=== PATIENT | female | born 1960 | race American Indian/Alaskan Native ===

== ENCOUNTER 2018-03-27 12:15 | Emergency (ER) | payer SELFPAY ==
[2018-03-27 12:29] VITALS: BP 190/103
--- NOTE | 2018-03-27 12:45 | Emergency Department Report ---
HPI - General Chief Complaint: Allergic Reaction Time Seen by Provider: 03/27/18 12:39 - HPI HPI: Patient is a 57-year-old female who is presenting with lip swelling. Patient states that about 2 days ago she was eating some strawberries and started having some intense itching of the upper lip. Patient states she took 2 Benadryl which did not relieve the itching. Patient last evening started having some soreness to the area and there is some still just edema to the upper lip is now a large weeping sore. Patient started taking some Abreva. Patient denies any fevers chills nausea vomiting diarrhea to stop. ED Past Medical Hx - Past Medical History Hx Hypertension: Yes Additional medical history: Fibromylagia, thyroid dis - Surgical History Additional Surgical History: Left knee and bilateral feet - Social History Smoking Status: Never Smoker Substance Use Type: Alcohol - Medications Home Medications: Home Medications Medication Instructions Recorded Confirmed Last Taken Type Clindamycin [Clindamycin CAP] 300 mg PO Q8H 7 Days cap 03/27/18 Unknown Rx diphenhydrAMINE [Benadryl CAP] 25 mg PO Q8HR PRN #15 capsule 03/27/18 Unknown Rx predniSONE [Deltasone] 10 mg PO QDAY #5 tab 03/27/18 Unknown Rx ED Review of Systems ROS: Stated complaint: ALLERGIC REACTION Other details as noted in HPI Comment: All other systems reviewed and negative Physical Exam - Physical Exam Vital Signs: Vital Signs 03/27/18 12:24 Temperature 99 F Pulse Rate 77 Respiratory 15 Rate Blood Pressure 190/103 O2 Sat by Pulse 96 Oximetry General: Patient is alert and oriented 3 in no apparent distress Physical Exam: Patient's heart and lung exams are within normal limits. HEENT the patient's upper lip shows edema around this is isolated to just the lip there is no tongue involvement. Patient has a 1/2 cm diameter area of purulence on the lip. It is mild tenderness. ED Course Vital Signs 03/27/18 12:24 Temperature 99 F Pulse Rate 77 Respiratory 15 Rate Blood Pressure 190/103 O2 Sat by Pulse 96 Oximetry ED Medical Decision Making - Medical Decision Making She'll be treated for allergic reaction but also for a mild impetigo be discharged home. Critical care attestation.: If time is entered above; I have spent that time in minutes in the direct care of this critically ill patient, excluding procedure time. ED Disposition Clinical Impression: Impetigo Allergic reaction Qualifiers: Encounter type: initial encounter Qualified Code(s): T78.40XA - Allergy, unspecified, initial encounter Disposition: TO HOME OR SELFCARE Is pt being admited?: No Does the pt Need Aspirin: No Condition: Stable Instructions: Impetigo (ED), Food Allergy (ED)
== END 2018-03-27 13:30 | disposition home or self-care (01) ==
LOC: ED 12:15
DX: T78.40XA Allergy, unspecified, initial encounter (principal); R42 Dizziness and giddiness; X58.XXXA Exposure to other specified factors, initial encounter; I10 Essential (primary) hypertension
CPT/HCPCS: 99281

== ENCOUNTER 2019-07-03 13:16 | Observation (INO) | payer OTHER ==
[2019-07-03] MEDS ORDERED: ASPIRIN PO ONE (13:43)
--- NOTE | 2019-07-03 13:48 | Event Note ---
ED Screening Note ED Screening Note: This initial assessment/diagnostic orders/clinical plan/treatment(s) is/are subject to change based on patients health status, clinical progression and re- assessment by fellow clinical providers in the ED. Further treatment and workup at subsequent clinical providers discretion. Patient/guardian urged not to elope from the ED as their condition may be serious if not clinically assessed and managed. Initial orders include: 58yo BF states that she has CP and SOB x 2 days and it is worse at night. She further states that EMS saw her last night and believe that her symptoms are due to asthma.Pt states that after using a JOSE ANTONIO inhaler and nebulizer treatment; she had very mild relief.
--- NOTE | 2019-07-03 14:22 | XRay Report ---
CHEST 1 VIEW INDICATION: Chest Pain. COMPARISON: None. FINDINGS: Support devices: None. Heart: Normal. Pulmonary vasculature: Normal. Lungs/Pleura: The lungs are normally expanded and clear. No pleural effusion. Additional findings: None. IMPRESSION: 1. No acute findings. Signer Name: Anish Briceño MD Signed: 07/03/2019 2:18 PM Workstation Name: [id number]
[2019-07-03 15:06] LABS: Basophils # (Auto) 0.1 K/mm3 (0.0-0.1); Basophils % (Auto) 1.3 % (0.0-1.8); Eosinophils # (Auto) 0.5 K/mm3 (0.0-0.4); Eosinophils % (Auto) 12.3 % (0.0-4.3); Hematocrit 36.5 % (30.3-42.9); Hemoglobin 12.1 gm/dl (10.1-14.3); Lymphocytes # (Auto) 1.3 K/mm3 (1.2-5.4); Lymphocytes % (Auto) 29.9 % (13.4-35.0); Mean Corpuscular HGB Conc 33 % (30-34); Mean Corpuscular Volume 89 fl (79-97); Monocytes # (Auto) 0.4 K/mm3 (0.0-0.8); Monocytes % (Auto) 9.1 % (0.0-7.3); Platelet Count 219 K/mm3 (140-440); Red Blood Count 4.09 M/mm3 (3.65-5.03); Red Cell Distribution Width 14.9 % (13.2-15.2)
[2019-07-03 15:13] LABS: BUN/Creatinine Ratio 6; Blood Urea Nitrogen 5 mg/dL (7-17); Calcium 8.6 mg/dL (8.4-10.2); Hemolysis Index 24
[2019-07-03 15:59] LABS: LDL Cholesterol,Direct 117 mg/dL (50-130)
[2019-07-03] MEDS ORDERED: NITRO-BID 2% TP ONE (16:45)
[2019-07-03] MEDS ORDERED: NORCO 5/325 PO ONE (16:46)
[2019-07-03] MEDS ORDERED: DUONEB *Not for PRN Use IH ONE (16:46)
[2019-07-03] MEDS ORDERED: LOVENOX SUB-Q ONE (16:46)
[2019-07-03] MEDS ORDERED: SOLU-Medrol IV ONE (16:46)
[2019-07-03] MEDS ORDERED: K-DUR PO ONE (16:51)
--- NOTE | 2019-07-03 16:54 | Emergency Department Report ---
ED Chest Pain HPI - General Chief Complaint: Chest Pain Stated Complaint: CHEST PAIN/EXTREME Time Seen by Provider: 07/03/19 16:37 Source: patient Mode of arrival: Ambulatory Limitations: No Limitations - History of Present Illness Initial Comments: 58 year old female the past medical history of asthma, hypertension, fibromyalgia, and thyroid dz status post partial thyroidectomy currently on Synthroid presents to the hospital with complaints of chest pain since yesterday. Patient states that the pain feels like someone has a foot in the middle of her chest. Pain rate is 7/10 in intensity and intermittent. Pain is worse with coughing. Patient reports a lot of coughing and wheezing lately not alleviated with her nebulized treatment at home. Cough is productive of thick green sputum. She has been feeling lightheaded and dizzy. No fever reported. Patient reports a previous history of leg DVT after leg surgery. She denies recent surgery or travel, calf tenderness, leg edema. She presents with elevated blood pressure and has been out of her blood pressure medication for the past 2 days. She reports she had a stress test "41 years ago", has never been a smoker, and her father had CO at unknown age. Severity scale (0 -10): 7 - Related Data Home Medications Medication Instructions Recorded Confirmed Last Taken Albuterol Sulfate [Albuterol 0.63% 3 ml INHALATION QID 07/03/19 07/03/19 07/01/19 NEBS] Aspirin 325 mg PO ONCE 07/03/19 07/03/19 07/03/19 FLUoxetine [PROzac] 20 mg PO QDAY 07/03/19 07/03/19 07/01/19 Fluticasone [Flonase] 2 spray NS QDAY 07/03/19 07/03/19 07/01/19 Levothyroxine [Synthroid] 112 mcg PO QAM 07/03/19 07/03/19 07/01/19 Meclizine [Antivert] 12.5 mg PO QDAY 07/03/19 07/03/19 07/01/19 amLODIPine [Norvasc] 10 mg PO DAILY 07/03/19 07/03/19 07/01/19 hydroCHLOROthiazide [Hctz] 12.5 mg PO QDAY 07/03/19 07/03/19 07/01/19 Previous Rx's Medication Instructions Recorded Last Taken Type diphenhydrAMINE [Benadryl CAP] 25 mg PO Q8HR PRN #15 capsule 03/27/18 07/01/19 Rx predniSONE [Deltasone] 10 mg PO QDAY #5 tab 03/27/18 07/01/19 Rx Allergies Allergy/AdvReac Type Severity Reaction Status Date / Time No Known Allergies Allergy Verified 07/03/19 13:21 Heart Score - HEART Score History: Slightly suspicious EKG: Non-specific Age: 45-65 Risk factors: > 3 risk factors or hx of atherosclerotic disease Troponin: 1-3x normal limit HEART Score: 5 ED Review of Systems ROS: Stated complaint: CHEST PAIN/EXTREME Other details as noted in HPI Comment: All other systems reviewed and negative ED Past Medical Hx - Past Medical History Previous Medical History?: Yes Hx Hypertension: Yes Hx Deep Vein Thrombosis: Yes (after leg surgery) Hx Asthma: Yes Additional medical history: Fibromylagia, thyroid dz on Synthroid - Surgical History Past Surgical History?: Yes Additional Surgical History: Left knee and bilateral feet. Partial thyroidectomy - Social History Smoking Status: Never Smoker Substance Use Type: None - Medications Home Medications: Home Medications Medication Instructions Recorded Confirmed Last Taken Type diphenhydrAMINE [Benadryl CAP] 25 mg PO Q8HR PRN #15 capsule 03/27/18 07/03/19 07/01/19 Rx predniSONE [Deltasone] 10 mg PO QDAY #5 tab 03/27/18 07/03/19 07/01/19 Rx Albuterol Sulfate [Albuterol 0.63% 3 ml INHALATION QID 07/03/19 07/03/19 07/01/19 History NEBS] Aspirin 325 mg PO ONCE 07/03/19 07/03/19 07/03/19 History FLUoxetine [PROzac] 20 mg PO QDAY 07/03/19 07/03/19 07/01/19 History Fluticasone [Flonase] 2 spray NS QDAY 07/03/19 07/03/19 07/01/19 History Levothyroxine [Synthroid] 112 mcg PO QAM 07/03/19 07/03/19 07/01/19 History Meclizine [Antivert] 12.5 mg PO QDAY 07/03/19 07/03/19 07/01/19 History amLODIPine [Norvasc] 10 mg PO DAILY 07/03/19 07/03/19 07/01/19 History hydroCHLOROthiazide [Hctz] 12.5 mg PO QDAY 07/03/19 07/03/19 07/01/19 History ED Physical Exam - General Limitations: No Limitations - Other Other exam information: Gen.: No acute distress Head: Atraumatic Eyes: Normal appearance ENT: Moist mucous membranes Neck: Normal appearance, no posterior midline tenderness, no meningismus Chest: Bilateral wheezing and rhonchi greater on the left, no tachypnea or accessory muscle use, chest wall nontender Cardiovascular: Regular rate and rhythm Abdomen: Normal appearance, soft, nontender, no rebound or guarding, normal bowel sounds Back: Normal appearance, nontender Extremity: Full range of motion, normal appearance, no calf tenderness or leg edema Neuro: Alert and into 3, clear speech, no focal motor or sensory deficit Psychiatric: Appropriate Skin: No rash ED Course Vital Signs 07/03/19 07/03/19 07/03/19 13:40 17:06 17:08 Temperature 98.9 F Pulse Rate 86 90 Pulse Rate [ 88 Anterior Bilateral Throughout] Respiratory 22 18 Rate Respiratory 19 Rate [Anterior Bilateral Throughout] Blood Pressure Blood Pressure 185/120 152/95 [Right] O2 Sat by Pulse 92 95 Oximetry 07/03/19 07/03/19 07/03/19 18:38 18:50 19:39 Temperature Pulse Rate 87 93 H Pulse Rate [ Anterior Bilateral Throughout] Respiratory 18 18 Rate Respiratory Rate [Anterior Bilateral Throughout] Blood Pressure 153/95 Blood Pressure 164/99 [Right] O2 Sat by Pulse 94 Oximetry - Consultations Consultation #1: 07/03/19 16:58 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 informed of elevated trop and plan to treat for nstemi and ddimer screening to determine if cta is needed. will be admitted and need card consult. agree no acute intervention needed at this time ED Medical Decision Making - Lab Data Result diagrams: 07/03/19 14:23 07/03/19 14:23 Lab Results 07/03/19 07/03/19 07/03/19 Range/Units 14:23 14:23 16:20 WBC 4.3 L (4.5-11.0) K/mm3 RBC 4.09 (3.65-5.03) M/mm3 Hgb 12.1 (10.1-14.3) gm/dl Hct 36.5 (30.3-42.9) % MCV 89 (79-97) fl MCH 30 (28-32) pg MCHC 33 (30-34) % RDW 14.9 (13.2-15.2) % Plt Count 219 (140-440) K/mm3 Lymph % (Auto) 29.9 (13.4-35.0) % Russell % (Auto) 9.1 H (0.0-7.3) % Eos % (Auto) 12.3 H (0.0-4.3) % Baso % (Auto) 1.3 (0.0-1.8) % Lymph # 1.3 (1.2-5.4) K/mm3 Russell # 0.4 (0.0-0.8) K/mm3 Eos # 0.5 H (0.0-0.4) K/mm3 Baso # 0.1 (0.0-0.1) K/mm3 Seg Neutrophils % 47.4 (40.0-70.0) % Seg Neutrophils # 2.0 (1.8-7.7) K/mm3 PT (12.2-14.9) Sec. INR (0.87-1.13) APTT (24.2-36.6) Sec. D-Dimer (0-234) ng/mlDDU Sodium 138 (137-145) mmol/L Potassium 3.2 L (3.6-5.0) mmol/L Chloride 99.0 (98-107) mmol/L Carbon Dioxide 26 (22-30) mmol/L Anion Gap 16 mmol/L BUN 5 L (7-17) mg/dL Creatinine 0.9 (0.7-1.2) mg/dL Estimated GFR > 60 ml/min BUN/Creatinine Ratio 6 % Glucose 97 (65-100) mg/dL Calcium 8.6 (8.4-10.2) mg/dL Magnesium (1.7-2.3) mg/dL Troponin T 0.112 H* 0.110 H* (0.00-0.029) ng/mL Triglycerides 97 (2-149) mg/dL Cholesterol 174 (50-199) mg/dL LDL Cholesterol Direct 117 (50-130) mg/dL 10/07/03/19 07/03/19 Range/Units 16:20 17:20 19:04 WBC (4.5-11.0) K/mm3 RBC (3.65-5.03) M/mm3 Hgb (10.1-14.3) gm/dl Hct (30.3-42.9) % MCV (79-97) fl MCH (28-32) pg MCHC (30-34) % RDW (13.2-15.2) % Plt Count (140-440) K/mm3 Lymph % (Auto) (13.4-35.0) % Russell % (Auto) (0.0-7.3) % Eos % (Auto) (0.0-4.3) % Baso % (Auto) (0.0-1.8) % Lymph # (1.2-5.4) K/mm3 Russell # (0.0-0.8) K/mm3 Eos # (0.0-0.4) K/mm3 Baso # (0.0-0.1) K/mm3 Seg Neutrophils % (40.0-70.0) % Seg Neutrophils # (1.8-7.7) K/mm3 PT 13.5 (12.2-14.9) Sec. INR 1.06 (0.87-1.13) APTT 26.0 (24.2-36.6) Sec. D-Dimer > 57702 H (0-234) ng/mlDDU Sodium (137-145) mmol/L Potassium (3.6-5.0) mmol/L Chloride (98-107) mmol/L Carbon Dioxide (22-30) mmol/L Anion Gap mmol/L BUN (7-17) mg/dL Creatinine (0.7-1.2) mg/dL Estimated GFR ml/min BUN/Creatinine Ratio % Glucose (65-100) mg/dL Calcium (8.4-10.2) mg/dL Magnesium 2.00 (1.7-2.3) mg/dL Troponin T 0.089 H (0.00-0.029) ng/mL Triglycerides (2-149) mg/dL Cholesterol (50-199) mg/dL LDL Cholesterol Direct (50-130) mg/dL - EKG Data -: EKG Interpreted by Nm EKG shows normal: sinus rhythm, ST-T waves (no stemi, inf t wave inv) Rate: normal (80) - EKG Data When compared to previous EKG there are: previous EKG unavailable - Radiology Data Radiology results: report reviewed cxr: naf CTA CHEST WITH IV CONTRAST INDICATION: sob elevated ddimer CONTRAST: 100 cc Omnipaque 350 IV COMPARISON: None available. Three-plane MIP reconstructions were produced. All CT scans at this location are performed using CT dose reduction for ALARA by means of automated exposure control. NOTE: Resolution is decreased and artifact is introduced by the patient's size. FINDINGS: No significant axillary or chest wall lesions are seen. Visualized portions of the upper abdomen show no acute abnormalities. No mediastinal or hilar masses are seen. Calcified nodes are seen in the mediastinum. No areas of consolidation are seen. Slight atelectatic changes are noted in the right lower lobe. Patchy bilateral small areas of focal increased interstitial markings in a focal ground glass type appearance are noted. These are most prevalent in the right upper lobe are also seen in the right lower lobe, right middle lobe, and left upper lobe. In the left lower lobe there is posterior lateral peripheral reticular nodular type of pattern in a mildly tree-in-bud appearance. Aorta shows no aneurysmal dilatation or evidence of dissection. Good opacification of the pulmonary arterial system was achieved. I do not see convincing evidence of pulmonary thromboembolism. IMPRESSION: 1. No evidence of pulmonary th romboembolism 2. Patchy bilateral focal areas of increased interstitial markings are noted of concern for patchy interstitial pneumonitis. No dense areas of consolidation are seen. Clinical correlation is suggested. Follow-up is recommended. - Medical Decision Making Patient be admitted to the hospital due to shortness of breath, wheezing, and elevated troponin. Troponin is remaining stable in trended downward. Patient was treated with ASA,Lovenox, nitroglycerin paste, Solu-Medrol, DuoNeb, and azithromycin which was added after CT suspicious for pneumonitis. CT did not show any pulmonary embolism. Case was discussed with cardiology. Patient to be admitted to the hospitalist service. Decision to admit at 8:12 PM however, awaiting oncoming hospitalist at shift change. b/l doppler ordered to be done during admission if not available tonight. - Differential Diagnosis mi, htn emergency, unstable angina, pe, Pneumonia, asthma exacerbation Critical Care Time: No Critical care attestation.: If time is entered above; I have spent that time in minutes in the direct care of this critically ill patient, excluding procedure time. ED Disposition Clinical Impression: Chest pain, Pneumonitis, Elevated troponin, HTN (hypertension), Noncompliance with medication regimen, Elevated d-dimer Disposition: OP ADMIT IP TO THIS HOSP Is pt being admited?: Yes Condition: Stable Referrals: GARRY BRANNON MD [Primary Care Provider] - 3-5 Days Time of Disposition: 20:12 (hospitalist)
[2019-07-03 18:19] LABS: INR 1.06 (0.87-1.13)
--- NOTE | 2019-07-03 20:05 | Cat Scan Report ---
CTA CHEST WITH IV CONTRAST INDICATION: sob elevated ddimer CONTRAST: 100 cc Omnipaque 350 IV COMPARISON: None available. Three-plane MIP reconstructions were produced. All CT scans at this location are performed using CT d ose reduction for ALARA by means of automated exposure control. NOTE: Resolution is decreased and artifact is introduced by the patient's size. FINDINGS: No significant axillary or chest wall lesions are seen. Visualized portions of the upper ab domen show no acute abnormalities. No mediastinal or hilar masses are seen. Calcified nodes are seen in the mediastinum. No areas of consolidation are seen. Slight atelectatic changes are noted in the right lower lobe. Pat florencia bilateral small areas of focal increased interstitial markings in a focal ground glass type appea balbir are noted. These are most prevalent in the right upper lobe are also seen in the right lower lo be, right middle lobe, and left upper lobe. In the left lower lobe there is posterior lateral periphe ral reticular nodular type of pattern in a mildly tree-in-bud appearance. Aorta shows no aneurysmal dilatation or evidence of dissection. Good opacification of the pulmonary arterial system was achieved. I do not see convincing evidence of pulmonary thromboembolism. IMPRESSION: 1. No evidence of pulmonary thromboembolism 2. Patchy bilateral focal areas of increased interstitial markings are noted of concern for patchy in terstitial pneumonitis. No dense areas of consolidation are seen. Clinical correlation is suggested. Follow-up is recommended. Signer Name: Frankie Howard MD Signed: 07/03/2019 8:01 PM Workstation Name: [id number]
[2019-07-03] MEDS ORDERED: ZITHROMAX 500 MG in NACL 0.9% 250ML 250 ML IV ONE (20:09)
[2019-07-03 20:18] LABS: Bacteria,Urine 1+ /HPF (Negative); Bilirubin,Urine NEG (Negative); Blood,Urine MOD (Negative); Color,Urine Yellow (Yellow); Mucus,Urine FEW /HPF; Protein,Urine <15 mg/dL mg/dL (Negative); Urobilinogen,Urine < 2.0 mg/dL (<2.0)
[2019-07-03] MEDS ORDERED: TYLENOL PO PRN (21:02)
[2019-07-03] MEDS ORDERED: NITROSTAT SL PRN (21:02)
[2019-07-03] MEDS ORDERED: ZOFRAN IV PRN (21:02)
[2019-07-03] MEDS ORDERED: NORCO 5/325 PO PRN (21:02)
[2019-07-03] MEDS ORDERED: SODIUM CHLORIDE FLUSH SYRINGE 10 ML IV PRN ×2 (21:02)
--- NOTE | 2019-07-03 21:14 | History and Physical Report ---
<NICK TIPTON - Last Filed: 07/04/19 01:26> History of Present Illness Date of examination: 07/03/19 Date of admission: 07/03/19 Chief complaint: chest pain History of present illness: Pt is a 58 year old female with PMHx of asthma, hypertension, chronic pain, HDL, depression, Hypothyroidism who presents to the ER with complaints of chest pain since yesterday. Patient states that she experience the same pain about 1 week ago as she was walking, she experience chest pressure and SOB. Patient states that the pain is located in the left substernal area, pt describe the pain as a pressure-like pain like some one is pushing in the middle of her chest. Pt also reports a productive cough of thick green sputum and wheezing for a few days and the cough makes he chest pain worse. Pt's complaint of cough, chest pain, nausea, dizzy, denies diaphoresis, denies palpitation, denies headache, denies fever reported. Pt reports family history of chest pain denies self history of chest pain or heart disease. Pt had an EKG in the ER that shows normal SR, no STEMI, her first cardiac enzyme was elevated, she was started in anticoagulent and admitted for further evaluation and treatment. Past History Past Medical History: hypertension, hyperlipidemia Medications and Allergies Allergies Allergy/AdvReac Type Severity Reaction Status Date / Time No Known Allergies Allergy Verified 07/03/19 13:21 Home Medications Medication Instructions Recorded Confirmed Last Taken Type diphenhydrAMINE [Benadryl CAP] 25 mg PO Q8HR PRN #15 capsule 03/27/18 07/03/19 07/01/19 Rx predniSONE [Deltasone] 10 mg PO QDAY #5 tab 03/27/18 07/03/19 07/01/19 Rx Albuterol Sulfate [Albuterol 0.63% 3 ml INHALATION QID 07/03/19 07/03/19 07/01/19 History NEBS] Aspirin 325 mg PO ONCE 07/03/19 07/03/19 07/03/19 History FLUoxetine [PROzac] 20 mg PO QDAY 07/03/19 07/03/19 07/01/19 History Fluticasone [Flonase] 2 spray NS QDAY 07/03/19 07/03/19 07/01/19 History Levothyroxine [Synthroid] 112 mcg PO QAM 07/03/19 07/03/19 07/01/19 History Meclizine [Antivert] 12.5 mg PO QDAY 07/03/19 07/03/19 07/01/19 History amLODIPine [Norvasc] 10 mg PO DAILY 07/03/19 07/03/19 07/01/19 History hydroCHLOROthiazide [Hctz] 12.5 mg PO QDAY 07/03/19 07/03/19 07/01/19 History Cyclobenzaprine [Flexeril 10 MG 20 mg PO BID PRN 07/04/19 07/04/19 07/03/19 08:00 History TAB] Gabapentin [Neurontin] 600 mg PO Q8H 07/04/19 07/04/19 07/03/19 08:00 History 20 mg Active Meds: Active Medications Acetaminophen (Tylenol) 650 mg PO Q4H PRN PRN Reason: Pain MILD(1-3)/Fever >100.5/[place] Acetaminophen/Hydrocodone Bitart ([place] 5/325) 2 each PO Q6H PRN PRN Reason: Pain, Moderate (4-6) Aspirin (Ecotrin) 325 mg PO QDAY KARLIE Nitroglycerin (Nitrostat) 0.4 mg SL Q5M PRN PRN Reason: Chest Pain Ondansetron HCl (Zofran) 4 mg IV Q8H PRN PRN Reason: Nausea And Vomiting Sodium Chloride (Sodium Chloride Flush Syringe 10 Ml) 10 ml IV BID KARLIE Sodium Chloride (Sodium Chloride Flush Syringe 10 Ml) 10 ml IV PRN PRN PRN Reason: LINE FLUSH Exam - Constitutional Vitals: Temp Pulse Resp BP Pulse Ox 98.9 F 93 H 18 164/99 94 07/03/19 17:08 07/03/19 18:50 07/03/19 19:39 07/03/19 18:50 07/03/19 18:50 General appearance: Present: no acute distress - EENT Eyes: Present: EOM intact ENT: hearing intact - Neck Neck: Present: supple, normal ROM - Respiratory Respiratory: bilateral: rhonchi, wheezing, other (congestion) - Cardiovascular Rhythm: regular Heart Sounds: Present: S1 & S2 - Extremities Extremities: no ischemia Peripheral Pulses: within normal limits - Abdominal General gastrointestinal: Present: deferred Female genitourinary: Present: deferred - Rectal Rectal Exam: deferred - Integumentary Integumentary: Present: warm, dry - Musculoskeletal Musculoskeletal: strength equal bilaterally - Psychiatric Psychiatric: cooperative - Neurologic Neurologic: moves all extremities Results - Labs CBC & Chem 7: 07/03/19 23:00 07/03/19 23:00 Labs: Laboratory Last Values WBC 4.3 K/mm3 (4.5-11.0) L 07/03/19 14:23 RBC 4.09 M/mm3 (3.65-5.03) 07/03/19 14:23 Hgb 12.1 gm/dl (10.1-14.3) 07/03/19 14:23 Hct 36.5 % (30.3-42.9) 07/03/19 14:23 MCV 89 fl (79-97) 07/03/19 14:23 MCH 30 pg (28-32) 07/03/19 14:23 MCHC 33 % (30-34) 07/03/19 14:23 RDW 14.9 % (13.2-15.2) 07/03/19 14:23 Plt Count 219 K/mm3 (140-440) 07/03/19 14:23 Lymph % (Auto) 29.9 % (13.4-35.0) 07/03/19 14:23 [place] % (Auto) 9.1 % (0.0-7.3) H 07/03/19 14:23 Eos % (Auto) 12.3 % (0.0-4.3) H 07/03/19 14:23 Baso % (Auto) 1.3 % (0.0-1.8) 07/03/19 14:23 Lymph # 1.3 K/mm3 (1.2-5.4) 07/03/19 14:23 [place] # 0.4 K/mm3 (0.0-0.8) 07/03/19 14:23 Eos # 0.5 K/mm3 (0.0-0.4) H 07/03/19 14:23 Baso # 0.1 K/mm3 (0.0-0.1) 07/03/19 14:23 Seg Neutrophils % 47.4 % (40.0-70.0) 07/03/19 14:23 Seg Neutrophils # 2.0 K/mm3 (1.8-7.7) 07/03/19 14:23 PT 13.5 Sec. (12.2-14.9) 07/03/19 17:20 INR 1.06 (0.87-1.13) 07/03/19 17:20 APTT 26.0 Sec. (24.2-36.6) 07/03/19 17:20 D-Dimer > 73839 ng/mlDDU (0-234) H 07/03/19 17:20 Sodium 138 mmol/L (137-145) 07/03/19 14:23 Potassium 3.2 mmol/L (3.6-5.0) L 07/03/19 14:23 Chloride 99.0 mmol/L (98-107) 07/03/19 14:23 Carbon Dioxide 26 mmol/L (22-30) 07/03/19 14:23 Anion Gap 16 mmol/L 07/03/19 14:23 BUN 5 mg/dL (7-17) L 07/03/19 14:23 Creatinine 0.9 mg/dL (0.7-1.2) 07/03/19 14:23 Estimated GFR > 60 ml/min 07/03/19 14:23 BUN/Creatinine Ratio 6 % 07/03/19 14:23 Glucose 97 mg/dL (65-100) 07/03/19 14:23 Calcium 8.6 mg/dL (8.4-10.2) 07/03/19 14:23 Magnesium 2.00 mg/dL (1.7-2.3) 07/03/19 16:20 Troponin T 0.089 ng/mL (0.00-0.029) H 07/03/19 19:04 Triglycerides 97 mg/dL (2-149) 07/03/19 14:23 Cholesterol 174 mg/dL (50-199) 07/03/19 14:23 LDL Cholesterol Direct 117 mg/dL (50-130) 07/03/19 14:23 Urine Color Yellow (Yellow) 07/03/19 19:55 Urine Turbidity Slightly-cloudy (Clear) 07/03/19 19:55 Urine pH 7.0 (5.0-7.0) 07/03/19 19:55 Ur Specific [place] 1.011 (1.003-1.030) 07/03/19 19:55 Urine Protein <15 mg/dl mg/dL (Negative) 07/03/19 19:55 Urine Glucose (UA) Neg mg/dL (Negative) 07/03/19 19:55 Urine Ketones Neg mg/dL (Negative) 07/03/19 19:55 Urine Blood Mod (Negative) 07/03/19 19:55 Urine Nitrite Neg (Negative) 07/03/19 19:55 Urine Bilirubin Neg (Negative) 07/03/19 19:55 Urine Urobilinogen < 2.0 mg/dL (<2.0) 07/03/19 19:55 Ur Leukocyte Esterase Mod (Negative) 07/03/19 19:55 Urine WBC (Auto) 7.0 /HPF (0.0-6.0) H 07/03/19 19:55 Urine RBC (Auto) 6.0 /HPF (0.0-6.0) 07/03/19 19:55 U Epithel Cells (Auto) 5.0 /HPF (0-13.0) 07/03/19 19:55 Urine Bacteria (Auto) 1+ /HPF (Negative) 07/03/19 19:55 Urine Mucus Few /HPF 07/03/19 19:55 Assessment and Plan Assessment and plan: 1. Chest pain 2. Acute Non-STEMI 3. Accelerated HTN 4. Asthma with acute exacerbation 5. H/o of HTN 6. Chronic pain 7. HDL 8. Depression 9. Hypothyroidism Plan: Pt is admitted for medtele Consult cardiology for evaluation Continue cardiac monitoring Continue Lovenox subq Q12hr Solumedrol for asthma Start Zithromax daily Continue nebs treatment q4hrs and PRN Monitor VS Hydralizing PRN for elevated BP Lipid panel Repeat EKG with chest pain Further plan per cardiology Advance Directives: Yes VTE prophylaxis?: Chemical Plan of care discussed with patient/family: Yes <YONI ZHENG - Last Filed: 07/04/19 03:55> History of Present Illness Date of admission: 07/03/19 21:02 Medications and Allergies Active Meds: Active Medications Acetaminophen (Tylenol) 650 mg PO Q4H PRN PRN Reason: Pain MILD(1-3)/Fever >100.5/[place] Acetaminophen/Hydrocodone Bitart ([place] 5/325) 1 each PO Q6H PRN PRN Reason: Pain, Moderate (4-6) Albuterol (Proventil) 2.5 mg IH Q4HRT [facility] Last Admin: 07/04/19 01:03 Dose: 2.5 mg Documented by: Amlodipine Besylate (Norvasc) 10 mg PO DAILY [facility] Aspirin (Halfprin Ec) 81 mg PO QDAY [facility] Diphenhydramine HCl (Benadryl) 25 mg PO Q8HR PRN PRN Reason: Itching Enoxaparin Sodium (Lovenox) 90 mg 1 mg/kg (90 mg) SUB-Q Q12H [facility] Fluoxetine HCl (Prozac) 20 mg PO QDAY [facility] Fluticasone Propionate (Flonase) 100 mcg NS QDAY [facility] Gabapentin (Neurontin) 600 mg PO Q8HR [facility] Hydralazine HCl (Apresoline) 5 mg IV Q6HR PRN PRN Reason: Hypertension Hydrochlorothiazide (Hctz) 12.5 mg PO QDAY [facility] Ceftriaxone Sodium (Rocephin/Ns 1 Gm/50 Ml) 1 gm in 50 mls @ 100 mls/hr IV Q24HR [facility]; Protocol Ipratropium [place] (Atrovent) 0.5 mg IH Q4HRT [facility] Last Admin: 07/04/19 01:03 Dose: 0.5 mg Documented by: Levothyroxine Sodium (Synthroid) 112 mcg PO QAM@0600 [facility] Meclizine HCl (Antivert) 12.5 mg PO QDAY [facility] Methylprednisolone Sodium Succinate (Solu-Medrol) 80 mg IV Q8HR [facility] Nitroglycerin (Nitrostat) 0.4 mg SL Q5M PRN PRN Reason: Chest Pain Ondansetron HCl (Zofran) 4 mg IV Q8H PRN PRN Reason: Nausea And Vomiting Sodium Chloride (Sodium Chloride Flush Syringe 10 Ml) 10 ml IV BID [facility] Sodium Chloride (Sodium Chloride Flush Syringe 10 Ml) 10 ml IV PRN PRN PRN Reason: LINE FLUSH Exam - Constitutional Vitals: Temp Pulse Resp BP Pulse Ox 98.0 F 85 20 162/94 98 07/03/19 23:18 07/04/19 03:19 07/04/19 00:00 07/03/19 23:18 07/04/19 00:50 Results - Labs CBC & Chem 7: 07/03/19 23:00 07/03/19 23:00 Labs: Laboratory Last Values WBC 4.5 K/mm3 (4.5-11.0) 07/03/19 23:00 RBC 4.31 M/mm3 (3.65-5.03) 07/03/19 23:00 Hgb 12.8 gm/dl (10.1-14.3) 07/03/19 23:00 Hct 38.4 % (30.3-42.9) 07/03/19 23:00 MCV 89 fl (79-97) 07/03/19 23:00 MCH 30 pg (28-32) 07/03/19 23:00 MCHC 33 % (30-34) 07/03/19 23:00 RDW 15.0 % (13.2-15.2) 07/03/19 23:00 Plt Count 230 K/mm3 (140-440) 07/03/19 23:00 Lymph % (Auto) 19.0 % (13.4-35.0) 07/03/19 23:00 [place] % (Auto) 3.8 % (0.0-7.3) 07/03/19 23:00 Eos % (Auto) 1.7 % (0.0-4.3) 07/03/19 23:00 Baso % (Auto) 0.6 % (0.0-1.8) 07/03/19 23:00 Lymph # 0.8 K/mm3 (1.2-5.4) L 07/03/19 23:00 [place] # 0.2 K/mm3 (0.0-0.8) 07/03/19 23:00 Eos # 0.1 K/mm3 (0.0-0.4) 07/03/19 23:00 Baso # 0.0 K/mm3 (0.0-0.1) 07/03/19 23:00 Seg Neutrophils % 74.9 % (40.0-70.0) H 07/03/19 23:00 Seg Neutrophils # 3.4 K/mm3 (1.8-7.7) 07/03/19 23:00 PT 13.5 Sec. (12.2-14.9) 07/03/19 17:20 INR 1.06 (0.87-1.13) 07/03/19 17:20 APTT 26.0 Sec. (24.2-36.6) 07/03/19 17:20 D-Dimer > 02202 ng/mlDDU (0-234) H 07/03/19 17:20 Sodium 137 mmol/L (137-145) 07/03/19 23:00 Potassium 3.9 mmol/L (3.6-5.0) D 07/03/19 23:00 Chloride 101.1 mmol/L (98-107) 07/03/19 23:00 Carbon Dioxide 23 mmol/L (22-30) 07/03/19 23:00 Anion Gap 17 mmol/L 07/03/19 23:00 BUN 7 mg/dL (7-17) 07/03/19 23:00 Creatinine 0.8 mg/dL (0.7-1.2) 07/03/19 23:00 Estimated GFR > 60 ml/min 07/03/19 23:00 BUN/Creatinine Ratio 9 % 07/03/19 23:00 Glucose 179 mg/dL (65-100) H 07/03/19 23:00 Calcium 8.7 mg/dL (8.4-10.2) 07/03/19 23:00 Magnesium 2.00 mg/dL (1.7-2.3) 07/03/19 16:20 Troponin T 0.089 ng/mL (0.00-0.029) H 07/03/19 19:04 Triglycerides 97 mg/dL (2-149) 07/03/19 14:23 Cholesterol 174 mg/dL (50-199) 07/03/19 14:23 LDL Cholesterol Direct 117 mg/dL (50-130) 07/03/19 14:23 Urine Color Yellow (Yellow) 07/03/19 19:55 Urine Turbidity Slightly-cloudy (Clear) 07/03/19 19:55 Urine pH 7.0 (5.0-7.0) 07/03/19 19:55 Ur Specific [place] 1.011 (1.003-1.030) 07/03/19 19:55 Urine Protein <15 mg/dl mg/dL (Negative) 07/03/19 19:55 Urine Glucose (UA) Neg mg/dL (Negative) 07/03/19 19:55 Urine Ketones Neg mg/dL (Negative) 07/03/19 19:55 Urine Blood Mod (Negative) 07/03/19 19:55 Urine Nitrite Neg (Negative) 07/03/19 19:55 Urine Bilirubin Neg (Negative) 07/03/19 19:55 Urine Urobilinogen < 2.0 mg/dL (<2.0) 07/03/19 19:55 Ur Leukocyte Esterase Mod (Negative) 07/03/19 19:55 Urine WBC (Auto) 7.0 /HPF (0.0-6.0) H 07/03/19: Urine RBC (Auto) 6.0 /HPF (0.0-6.0) 07/03/19 19:55 U Epithel Cells (Auto) 5.0 /HPF (0-13.0) 07/03/19 19:55 Urine Bacteria (Auto) 1+ /HPF (Negative) 07/03/19 19:55 Urine Mucus Few /HPF 07/03/19 19:55 Assessment and Plan Assessment and plan: 58-year-old woman with a history of hypertension, fibromyalgia, asthma, hypothyr oidism comes emergency room with complaints of chest pain, cough productive of green phlegm, shortness of breath. Patient with non-STEMI, acute bronchitis, urinary tract infection. Agree with plan as stated above except change azithromycin to Rocephin, start beta matheus, DAMIÁN inhibitor, aspirin, consult cardiology. d/c HCTZ
[2019-07-03] MEDS ORDERED: APRESOLINE IV PRN (21:29)
[2019-07-03 23:37] LABS: Basophils % (Auto) 0.6 % (0.0-1.8); Eosinophils # (Auto) 0.1 K/mm3 (0.0-0.4); Eosinophils % (Auto) 1.7 % (0.0-4.3); Hematocrit 38.4 % (30.3-42.9); Hemoglobin 12.8 gm/dl (10.1-14.3); Lymphocytes # (Auto) 0.8 K/mm3 (1.2-5.4); Mean Corpuscular HGB Conc 33 % (30-34); Mean Corpuscular Volume 89 fl (79-97); Monocytes # (Auto) 0.2 K/mm3 (0.0-0.8); Monocytes % (Auto) 3.8 % (0.0-7.3); Platelet Count 230 K/mm3 (140-440); Red Blood Count 4.31 M/mm3 (3.65-5.03)
[2019-07-03 23:53] LABS: BUN/Creatinine Ratio 9; Blood Urea Nitrogen 7 mg/dL (7-17); Calcium 8.7 mg/dL (8.4-10.2); Hemolysis Index 1
[2019-07-04] MEDS: PROVENTIL IH SCH ×5 (01:03→17:18)
[2019-07-04] MEDS: ATROVENT IH SCH ×5 (01:03→17:18)
[2019-07-04] MEDS ORDERED: FLEXERIL PO PRN (01:15)
[2019-07-04] MEDS ORDERED: BENADRYL PO PRN (01:15)
[2019-07-04] MEDS ORDERED: NON-FORMULARY (Gabapentin [Neurontin] 600 MG) PO SCH (01:15)
[2019-07-04] MEDS ORDERED: ASPIRIN PO SCH (02:00)
[2019-07-04] MEDS ORDERED: NORCO 5/325 PO PRN (02:16)
[2019-07-04] MEDS: APRESOLINE IV PRN ×2 (04:41→14:13)
[2019-07-04] MEDS: LOVENOX SUB-Q SCH ×2 (06:41→17:29)
[2019-07-04] MEDS: SOLU-Medrol IV SCH ×3 (06:42→22:23)
[2019-07-04] MEDS: SYNTHROID PO SCH (06:43)
[2019-07-04] MEDS: SODIUM CHLORIDE FLUSH SYRINGE 10 ML IV SCH ×3 (06:50→22:33)
[2019-07-04 07:00] LABS: Chol/HDL Ratio 3.95 %; HDL Cholesterol 44 mg/dL (40-59)
[2019-07-04] MEDS: NEURONTIN PO SCH ×3 (09:17→22:23)
[2019-07-04] MEDS ORDERED: ECOTRIN PO SCH (10:00)
[2019-07-04] MEDS ORDERED: NORVASC PO SCH (10:00)
[2019-07-04] MEDS ORDERED: ZITHROMAX 500 MG in NACL 0.9% 250ML 250 ML IV SCH (10:00)
[2019-07-04] MEDS ORDERED: NON-FORMULARY (Albuterol Sulfate [Albuterol 0.63% Nebs] 3 ML) INHALATION SCH (10:00)
[2019-07-04] MEDS ORDERED: DELTASONE PO SCH (10:00)
[2019-07-04] MEDS ORDERED: HCTZ PO SCH (10:00)
--- NOTE | 2019-07-04 10:39 | Vascular Lab Report ---
DUPLEX DOPPLER LOWER EXTREMITY VEINS, BILATERAL INDICATION: elevated ddimer. Leg pain for 3 days TECHNIQUE: Duplex doppler imaging was performed through the veins of both lower extremities using ve nous compression and other maneuvers. COMPARISON: No relevant prior imaging study available. FINDINGS: Right Common femoral vein: Negative. Right Superficial femoral vein: Negative. Right Popliteal vein: Negative. Right Calf veins: Negative. Left Common femoral vein: Negative. Left Superficial femoral vein: Negative. Left Popliteal vein: Negative. Left Calf veins: Negative. Additional findings: None.. IMPRESSION: No sonographic evidence for DVT in either lower extremity. Signer Name: Jose Cotton Jr, MD Signed: 07/04/2019 10:35 AM Workstation Name: [id number]
[2019-07-04] MEDS: ROCEPHIN/NS 1 GM/50 ML 1 GM/50 ML BAG IV SCH (13:37)
[2019-07-04] MEDS: ZESTRIL PO SCH ×2 (13:37→18:42)
[2019-07-04] MEDS: HALFPRIN EC PO SCH (13:37)
[2019-07-04] MEDS: PROzac PO SCH (13:37)
[2019-07-04] MEDS: LOPRESSOR PO SCH ×3 (13:37→22:25)
[2019-07-04] MEDS: ANTIVERT PO SCH (13:39)
[2019-07-04] MEDS: FLONASE NS SCH (13:39)
[2019-07-04] MEDS ORDERED: PROVENTIL IH PRN (17:12)
[2019-07-04] MEDS ORDERED: MIRALAX 3350 PO PRN (17:12)
[2019-07-04] MEDS: HYDROMET PO PRN ×2 (17:34→23:20)
--- NOTE | 2019-07-04 18:16 | Progress Note ---
Assessment and Plan - Patient Problems (1) Asthma exacerbation Current Visit: Yes Status: Acute Plan to address problem: Updating this is one of patient's main problem acute bronchitis with asthma exacerbation. Acute asthma exacerbation. Place patient on Solu-Medrol empiric antibiotics azithromycin. Albuterol Atrovent nebulizers. 2. Patient has intercostal chest pain secondary to coughing. We'll add cough suppressant. She cannot rest from coughing. (2) Chest pain Current Visit: Yes Status: Acute Plan to address problem: I think this is most likely intercostal pain. Again will cough suppressant supportive care pain control and treatment underlying problem of asthma. Patient does have elevated cardiac arrest and enzymes will continue workup with stress test echocardiogram. (3) Elevated troponin Current Visit: Yes Status: Acute Plan to address problem: Patient with some risk factors workup for nondistended. Placed on aspirin and statin and beta matheus. (4) HTN (hypertension) Current Visit: Yes Status: Acute Plan to address problem: Patient malignant hypertension uncontrolled will increase Lopressor to 50 twice a day and also increase lisinopril to 5 mg once daily. (5) Acute bronchitis Current Visit: Yes Status: Acute Plan to address problem: Q bronchitis again I think this is patient's main problem at this time. Empiric antibiotics. Cough suppressant. History Interval history: He showed 58-year-old history of asthma hypertension hypothyroidism presented with chest pain palpitations or wheezing scrubbed left-sided pressure productive cough. EKG showed normal sinus rhythm. Hospital course complicated by elevated cardiac Enzymes Patient Admitted for Non-STEMI. The Positive upon Palpitation Patient Has Pain with Cough. Pain around Intercostal Muscles with Cough. This Is the Same Pain Patient Is Describing. Follow-Up Chest X-Ray Negative. Hospitalist Physical - Constitutional Vitals: Temp Pulse Resp BP Pulse Ox 98.1 F 88 18 182/117 93 07/04/19 07:53 07/04/19 14:30 07/04/19 14:30 07/04/19 07:53 07/04/19 10:00 General appearance: Present: no acute distress - EENT Eyes: Present: PERRL, EOM intact ENT: hearing intact, clear oral mucosa, dentition normal - Neck Neck: Present: supple, normal ROM - Respiratory Respiratory: bilateral: wheezing - Cardiovascular Rhythm: regular - Extremities Extremities: no ischemia, pulses intact, pulses symmetrical, No edema, normal temperature, Full ROM Peripheral Pulses: within normal limits - Abdominal General gastrointestinal: soft, non-tender, non-distended, normal bowel sounds - Integumentary Integumentary: Present: clear, warm, dry - Psychiatric Psychiatric: appropriate mood/affect - Neurologic Neurologic: CNII-XII intact, focal deficits, moves all extremities Results - Labs CBC & Chem 7: 07/03/19 23:00 07/03/19 23:00 Labs: Laboratory Last Values WBC 4.5 K/mm3 (4.5-11.0) 07/03/19 23:00 RBC 4.31 M/mm3 (3.65-5.03) 07/03/19 23:00 Hgb 12.8 gm/dl (10.1-14.3) 07/03/19 23:00 Hct 38.4 % (30.3-42.9) 07/03/19 23:00 MCV 89 fl (79-97) 07/03/19 23:00 MCH 30 pg (28-32) 07/03/19 23:00 MCHC 33 % (30-34) 07/03/19 23:00 RDW 15.0 % (13.2-15.2) 07/03/19 23:00 Plt Count 230 K/mm3 (140-440) 07/03/19 23:00 Lymph % (Auto) 19.0 % (13.4-35.0) 07/03/19 23:00 [place] % (Auto) 3.8 % (0.0-7.3) 07/03/19 23:00 Eos % (Auto) 1.7 % (0.0-4.3) 07/03/19 23:00 Baso % (Auto) 0.6 % (0.0-1.8) 07/03/19 23:00 Lymph # 0.8 K/mm3 (1.2-5.4) L 07/03/19 23:00 [place] # 0.2 K/mm3 (0.0-0.8) 07/03/19 23:00 Eos # 0.1 K/mm3 (0.0-0.4) 07/03/19 23:00 Baso # 0.0 K/mm3 (0.0-0.1) 07/03/19 23:00 Seg Neutrophils % 74.9 % (40.0-70.0) H 07/03/19 23:00 Seg Neutrophils # 3.4 K/mm3 (1.8-7.7) 07/03/19 23:00 PT 13.5 Sec. (12.2-14.9) 07/03/19 17:20 INR 1.06 (0.87-1.13) 07/03/19 17:20 APTT 26.0 Sec. (24.2-36.6) 07/03/19 17:20 D-Dimer > 63594 ng/mlDDU (0-234) H 07/03/19 17:20 Sodium 137 mmol/L (137-145) 07/03/19 23:00 Potassium 3.9 mmol/L (3.6-5.0) D 07/03/19 23:00 Chloride 101.1 mmol/L (98-107) 07/03/19 23:00 Carbon Dioxide 23 mmol/L (22-30) 07/03/19 23:00 Anion Gap 17 mmol/L 07/03/19 23:00 BUN 7 mg/dL (7-17) 07/03/19 23:00 Creatinine 0.8 mg/dL (0.7-1.2) 07/03/19 23:00 Estimated GFR > 60 ml/min 07/03/19 23:00 BUN/Creatinine Ratio 9 % 07/03/19 23:00 Glucose 179 mg/dL (65-100) H 07/03/19 23:00 Calcium 8.7 mg/dL (8.4-10.2) 07/03/19 23:00 Magnesium 2.00 mg/dL (1.7-2.3) 07/03/19 16:20 Troponin T 0.074 ng/mL (0.00-0.029) H 07/04/19 12:22 Triglycerides 97 mg/dL (2-149) 07/03/19 14:23 Cholesterol 174 mg/dL (50-199) 07/03/19 14:23 LDL Cholesterol Direct 117 mg/dL (50-130) 07/03/19 14:23 HDL Cholesterol 44 mg/dL (40-59) 07/03/19 14:23 Cholesterol/HDL Ratio 3.95 % 07/03/19 14:23 Urine Color Yellow (Yellow) 07/03/19 19:55 Urine Turbidity Slightly-cloudy (Clear) 07/03/19 19:55 Urine pH 7.0 (5.0-7.0) 07/03/19 19:55 Ur Specific [place] 1.011 (1.003-1.030) 07/03/19 19:55 Urine Protein <15 mg/dl mg/dL (Negative) 07/03/19 19:55 Urine Glucose (UA) Neg mg/dL (Negative) 07/03/19 19:55 Urine Ketones Neg mg/dL (Negative) 07/03/19 19:55 Urine Blood Mod (Negative) 07/03/19 19:55 Urine Nitrite Neg (Negative) 07/03/19 19:55 Urine Bilirubin Neg (Negative) 07/03/19 19:55 Urine Urobilinogen < 2.0 mg/dL (<2.0) 07/03/19 19:55 Ur Leukocyte Esterase Mod (Negative) 07/03/19 19:55 Urine WBC (Auto) 7.0 /HPF (0.0-6.0) H 07/03/19 19:55 Urine RBC (Auto) 6.0 /HPF (0.0-6.0) 07/03/19 19:55 U Epithel Cells (Auto) 5.0 /HPF (0-13.0) 07/03/19 19:55 Urine Bacteria (Auto) 1+ /HPF (Negative) 07/03/19 19:55 Urine Mucus Few /HPF 07/03/19 19:55 Active Medications - Current Medications Current Medications: Generic Name Dose Route Start Last Admin Trade Name Freq PRN Reason Stop Dose Admin Acetaminophen 650 mg 07/03/19 21:02 Tylenol PO Q4H PRN Pain MILD(1-3)/Fever >100.5/[place] Acetaminophen/Hydrocodone Bitart 1 each 07/04/19 02:16 07/04/19 08:45 [place] 5/325 PO 1 each Q6H PRN Administration Pain, Moderate (4-6) Albuterol 2.5 mg 07/04/19 17:12 Proventil IH Q4HRT PRN Shortness Of Breath Albuterol/Ipratropium 1 ampul 07/04/19 20:00 Duoneb *Not For Prn Use* IH Q6HRT [facility] Aspirin 81 mg 07/04/19 10:00 07/04/19 13:37 Halfprin Ec PO 81 mg QDAY [facility]IE Administration Diphenhydramine HCl 25 mg 07/04/19 01:15 Benadryl PO Q8HR PRN Itching Enoxaparin Sodium 90 mg 07/04/19 06:00 07/04/19 17:29 Lovenox 1 mg/kg (90 mg) 90 mg SUB-Q Administration Q12H [facility] Fluoxetine HCl 20 mg 07/04/19 10:00 07/04/19 13:37 Prozac PO 20 mg QDAY [facility] Administration Fluticasone Propionate 100 mcg 07/04/19 10:00 07/04/19 13:39 Flonase NS 100 mcg QDAY [facility] Administration Gabapentin 600 mg 07/04/19 06:00 07/04/19 13:38 Neurontin PO 600 mg Q8HR [facility] Administration Hydralazine HCl 5 mg 07/04/19 02:16 07/04/19 14:13 Apresoline IV 5 mg Q6HR PRN Administration Hypertension Hydrocodone Bit/Homatropine Methylb 5 ml 07/04/19 17:10 07/04/19 17:34 Hydromet PO 5 ml Q6H PRN Administration Cough Ceftriaxone Sodium 1 gm in 50 mls @ 100 mls/hr 07/04/19 10:00 07/04/19 13:37 Rocephin/Ns 1 Gm/50 Ml IV 100 mls/hr Q24HR [facility] Administration Protocol Levothyroxine Sodium 112 mcg 07/04/19 06:00 07/04/19 06:43 Synthroid PO 112 mcg QAM@0600 [facility] Administration Lisinopril 2.5 mg 07/04/19 10:00 07/04/19 13:37 Zestril PO 2.5 mg QDAY [facility] Administration Meclizine HCl 12.5 mg 07/04/19 10:00 07/04/19 13:39 Antivert PO 12.5 mg QDAY [facility] Administration Methylprednisolone Sodium Succinate 80 mg 07/04/19 06:00 07/04/19 13:38 Solu-Medrol IV 80 mg Q8HR [facility] Administration Metoprolol Tartrate 25 mg 07/04/19 10:00 07/04/19 13:37 Lopressor PO 25 mg BID [facility] Administration Nitroglycerin 0.4 mg 07/03/19 21:02 Nitrostat SL Q5M PRN Chest Pain Ondansetron HCl 4 mg 07/03/19 21:02 Zofran IV Q8H PRN Nausea And Vomiting Polyethylene Glycol 17 gm 07/04/19 17:12 07/04/19 17:34 Miralax 3350 PO 17 gm BID PRN Administration Constipation Sodium Chloride 10 ml 07/03/19 22:00 07/04/19 13:37 Sodium Chloride Flush Syringe 10 Ml IV 10 ml BID [facility] Administration Sodium Chloride 10 ml 07/03/19 21:02 Sodium Chloride Flush Syringe 10 Ml IV PRN PRN LINE FLUSH Nutrition/Malnutrition Assess - Dietary Evaluation Nutrition/Malnutrition Findings: Nutrition Notes Start: 07/04/19 10:26 Freq: Status: Active Protocol: Document 07/04/19 10:26 CC (Rec: 07/04/19 11:14 CC [id number]) Co-Sign 07/04/19 10:26 LP Nutrition Notes Need for Assessment generated from: MST Initial or Follow up Assessment Current Diagnosis Hypertension Other Pertinent Diagnosis Thyroid dx, asthma Current Diet Cardiac diet, NPO after midnight Labs/Tests Reviewed Pertinent Medications Solumedral Height 5 ft 6 in Weight 89.2 kg Usual Body Weight 104.5 kg [place] Body Weight (kg) 59.09 BMI 31.7 Intake Prior to Admission Excellent Weight change and time frame 14.6% /2 years (not significant) Weight Status Appropriate Subjective/Other Information Pt stated she has had unintentional wt loss of 30lbs in the past 2 years d/t stress. Pt stated she has been more active in past 2 years to control wt because "weight problems run in her family." Pt stated [employer] her appetite has been excellent. 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 Burn Absent Trauma Absent GI Symptoms Nausea Difficulty In Swallowing Food Allergy No Current % PO Good (75-100%) Minimum of two criteria No physical signs of malnutrition #1 Nutrition Diagnosis No nutrition diagnosis at this time Is patient on ventilator? No Is Patient Ambulatory and/or Out of Bed Yes REE-([facility]-ambulatory/OOB) [ [id number] [id number]] Calculation Used for Recommendations [facility] Additional Notes Pro: 71- 90g/day (0.8-1.0g/kg) Fluid: 1ml/kcal Nutrition Intervention Change Diet Order: continue cardiac diet Goal #1 Meet >80% of energy and protein needs through po Anticipated Discharge Needs: cardiac diet Revisit per MD consult or patient Sign Off request:
--- NOTE | 2019-07-04 18:26 | Consultation ---
History of Present Illness Consult date: 07/04/19 Consult reason: chest pain History of present illness: Pt is a 58 year old female with PMHx of asthma, hypertension, chronic pain, HDL, depression, Hypothyroidism who presents to the ER with complaints of chest pain since yesterday. Patient states that she experience the same pain about 1 week ago as she was walking, she experience chest pressure and SOB. Patient states that the pain is located in the left substernal area. Patient describe the pain as a pressure-like pain pushing in the middle of her chest. Pt also reports a productive cough of thick green sputum and wheezing for a few days and the cough makes he chest pain worse. Past History Past Medical History: hypertension, hyperlipidemia Medications and Allergies Allergies Allergy/AdvReac Type Severity Reaction Status Date / Time No Known Allergies Allergy Verified 07/03/19 13:21 Home Medications Medication Instructions Recorded Confirmed Last Taken Type diphenhydrAMINE [Benadryl CAP] 25 mg PO Q8HR PRN #15 capsule 03/27/18 07/03/19 07/01/19 Rx predniSONE [Deltasone] 10 mg PO QDAY #5 tab 03/27/18 07/03/19 07/01/19 Rx Albuterol Sulfate [Albuterol 0.63% 3 ml INHALATION QID 07/03/19 07/03/19 07/01/19 History NEBS] Aspirin 325 mg PO ONCE 07/03/19 07/03/19 07/03/19 History FLUoxetine [PROzac] 20 mg PO QDAY 07/03/19 07/03/19 07/01/19 History Fluticasone [Flonase] 2 spray NS QDAY 07/03/19 07/03/19 07/01/19 History Levothyroxine [Synthroid] 112 mcg PO QAM 07/03/19 07/03/19 07/01/19 History Meclizine [Antivert] 12.5 mg PO QDAY 07/03/19 07/03/19 07/01/19 History amLODIPine [Norvasc] 10 mg PO DAILY 07/03/19 07/03/19 07/01/19 History hydroCHLOROthiazide [Hctz] 12.5 mg PO QDAY 07/03/19 07/03/19 07/01/19 History Cyclobenzaprine [Flexeril 10 MG 20 mg PO BID PRN 07/04/19 07/04/19 07/03/19 08:00 History TAB] Gabapentin [Neurontin] 600 mg PO Q8H 07/04/19 07/04/19 07/03/19 08:00 History 20 mg Active Meds: Active Medications Acetaminophen (Tylenol) 650 mg PO Q4H PRN PRN Reason: Pain MILD(1-3)/Fever >100.5/[place] Acetaminophen/Hydrocodone Bitart ([place] 5/325) 1 each PO Q6H PRN PRN Reason: Pain, Moderate (4-6) Last Admin: 07/04/19 08:45 Dose: 1 each Documented by: Albuterol (Proventil) 2.5 mg IH Q4HRT PRN PRN Reason: Shortness Of Breath Albuterol/Ipratropium (Duoneb *Not For Prn Use*) 1 ampul IH Q6HRT [facility] Aspirin (Halfprin Ec) 81 mg PO QDAY [facility] Last Admin: 07/04/19 13:37 Dose: 81 mg Documented by: Diphenhydramine HCl (Benadryl) 25 mg PO Q8HR PRN PRN Reason: Itching Enoxaparin Sodium (Lovenox) 90 mg 1 mg/kg (90 mg) SUB-Q Q12H [facility] Last Admin: 07/04/19 17:29 Dose: 90 mg Documented by: Fluoxetine HCl (Prozac) 20 mg PO QDAY [facility] Last Admin: 07/04/19 13:37 Dose: 20 mg Documented by: Fluticasone Propionate (Flonase) 100 mcg NS QDAY [facility] Last Admin: 07/04/19 13:39 Dose: 100 mcg Documented by: Gabapentin (Neurontin) 600 mg PO Q8HR [facility] Last Admin: 07/04/19 13:38 Dose: 600 mg Documented by: Hydralazine HCl (Apresoline) 5 mg IV Q6HR PRN PRN Reason: Hypertension Last Admin: 07/04/19 14:13 Dose: 5 mg Documented by: Hydrocodone Bit/Homatropine Methylb (Hydromet) 5 ml PO Q6H PRN PRN Reason: Cough Last Admin: 07/04/19 17:34 Dose: 5 ml Documented by: Ceftriaxone Sodium (Rocephin/Ns 1 Gm/50 Ml) 1 gm in 50 mls @ 100 mls/hr IV Q 24HR [facility]; Protocol Last Admin: 07/04/19 13:37 Dose: 100 mls/hr Documented by: Levothyroxine Sodium (Synthroid) 112 mcg PO QAM@0600 [facility] Last Admin: 07/04/19 06:43 Dose: 112 mcg Documented by: Lisinopril (Zestril) 2.5 mg PO QDAY [facility] Last Admin: 07/04/19 13:37 Dose: 2.5 mg Documented by: Meclizine HCl (Antivert) 12.5 mg PO QDAY [facility] Last Admin: 07/04/19 13:39 Dose: 12.5 mg Documented by: Methylprednisolone Sodium Succinate (Solu-Medrol) 80 mg IV Q8HR [facility] Last Admin: 07/04/19 13:38 Dose: 80 mg Documented by: Metoprolol Tartrate (Lopressor) 25 mg PO BID [facility] Last Admin: 07/04/19 13:37 Dose: 25 mg Documented by: Nitroglycerin (Nitrostat) 0.4 mg SL Q5M PRN PRN Reason: Chest Pain Ondansetron HCl (Zofran) 4 mg IV Q8H PRN PRN Reason: Nausea And Vomiting Polyethylene Glycol (Miralax 3350) 17 gm PO BID PRN PRN Reason: Constipation Last Admin: 07/04/19 17:34 Dose: 17 gm Documented by: Sodium Chloride (Sodium Chloride Flush Syringe 10 Ml) 10 ml IV BID [facility] Last Admin: 07/04/19 13:37 Dose: 10 ml Documented by: Sodium Chloride (Sodium Chloride Flush Syringe 10 Ml) 10 ml IV PRN PRN PRN Reason: LINE FLUSH Review of Systems All systems: negative (pertinent positives mentioned in history) Physical Examination Vital Signs Pulse Resp BP Pulse Ox 86 22 185/120 92 07/03/19 13:40 07/03/19 13:40 07/03/19 13:40 07/03/19 13:40 General appearance: no acute distress HEENT: Positive: PERRL, EOMI Neck: Positive: neck supple Cardiac: Positive: Reg Rate and Rhythm, S1/S2 Lungs: Positive: Rales, Wheezes, Rhonchi Neuro: Positive: Grossly Intact Abdomen: Positive: Unremarkable, Soft Extremities: Present: normal Results 07/03/19 23:00 07/03/19 23:00 Coagulation 07/03/19 Range/Units 17:20 PT 13.5 (12.2-14.9) Sec. INR 1.06 (0.87-1.13) Lipids 07/03/19 Range/Units 14:23 HDL Cholesterol 44 (40-59) mg/dL Cholesterol/HDL Ratio 3.95 % CBC 07/03/19 Range/Units 23:00 WBC 4.5 (4.5-11.0) K/mm3 RBC 4.31 (3.65-5.03) M/mm3 Hgb 12.8 (10.1-14.3) gm/dl Hct 38.4 (30.3-42.9) % Plt Count 230 (140-440) K/mm3 Lymph # 0.8 L (1.2-5.4) K/mm3 [place] # 0.2 (0.0-0.8) K/mm3 Eos # 0.1 (0.0-0.4) K/mm3 Baso # 0.0 (0.0-0.1) K/mm3 Comprehensive Metabolic Panel 07/03/19 Range/Units 23:00 Sodium 137 (137-145) mmol/L Potassium 3.9 D (3.6-5.0) mmol/L Chloride 101.1 (98-107) mmol/L Carbon Dioxide 23 (22-30) mmol/L BUN 7 (7-17) mg/dL Creatinine 0.8 (0.7-1.2) mg/dL Glucose 179 H (65-100) mg/dL Calcium 8.7 (8.4-10.2) mg/dL EKG interpretations - Telemetry EKG Rhythm: Sinus Rhythm (nonspecific sttw changes) Assessment and Plan 1. Chest pain secondary to coughing and pulmonary disease 2. NSTEMI type 2 with mild troponin elevation secondary to hypertension and pulmonary disease 3. Accelerated HTN 4. Asthma with acute exacerbation 5. H/o of HTN 6. Chronic pain 7. HDL 8. Depression 9. Hypothyroidism Plan: check echo recommend medical therapy with BB, ASA, and statin Recommend medical therapy for treatment of pulmonary issues plan for out patient evaluation for ischemia
[2019-07-04] MEDS: DUONEB *Not for PRN Use IH SCH (19:59)
[2019-07-05] MEDS: DUONEB *Not for PRN Use IH SCH ×4 (02:11→20:26)
[2019-07-05] MEDS: SYNTHROID PO SCH (05:31)
[2019-07-05] MEDS: NEURONTIN PO SCH ×3 (05:31→21:26)
[2019-07-05] MEDS: SOLU-Medrol IV SCH ×3 (05:31→21:28)
[2019-07-05] MEDS: LOVENOX SUB-Q SCH ×2 (05:32→17:53)
--- NOTE | 2019-07-05 09:52 | Progress Note ---
Assessment and Plan Chest pain secondary to coughing and pulmonary disease Mild troponin elevation secondary to hypertension and pulmonary disease Accelerated HTN Asthma with acute exacerbation History of Depression History of Hypothyroidism s/p thyroidectomy Plan: Echo for LVEF assessment. Optimal BP management. Plan for outpatient evaluation for ischemia once respiratory issues are resolved. Subjective Date of service: 07/05/19 Interval history: Patient reports her breathing is improving. Still with coughs. BP not optimal, currently 170/90 Objective Vital Signs Temp Pulse Pulse Resp Resp BP Pulse Ox 07/05/19 08:44 94 07/05/19 08:30 98.0 F 77 18 170/90 94 07/05/19 08:00 77 18 07/05/19 04:33 97.5 F L 07/05/19 04:32 75 18 168/92 91 07/05/19 02:15 76 20 07/04/19 23:38 97.5 F L 07/04/19 23:37 73 18 173/90 98 07/04/19 23:12 86 07/04/19 22:25 99 H 150/91 07/04/19 22:24 99 H 150/91 07/04/19 20:42 98.2 F 07/04/19 20:41 99 H 18 150/91 93 07/04/19 20:05 96 07/04/19 20:00 81 20 07/04/19 19:00 89 07/04/19 16:05 98.4 F 18 157/90 07/04/19 14:30 88 18 07/04/19 12:00 98 07/04/19 11:00 89 07/04/19 10:00 93 - Physical Examination General: No Apparent Distress HEENT: Positive: PERRL Neck: Positive: trachea midline Cardiac: Positive: Reg Rate and Rhythm Lungs: Positive: Decreased Breath Sounds Neuro: Positive: Grossly Intact Extremities: Absent: edema
[2019-07-05] MEDS: ZESTRIL PO SCH ×2 (10:07→11:56)
[2019-07-05] MEDS: LOPRESSOR PO SCH ×4 (10:08→21:30)
[2019-07-05] MEDS: HALFPRIN EC PO SCH (10:08)
[2019-07-05] MEDS: PROzac PO SCH (10:08)
[2019-07-05] MEDS: FLONASE NS SCH (10:09)
[2019-07-05] MEDS: ANTIVERT PO SCH (10:09)
[2019-07-05] MEDS: ROCEPHIN/NS 1 GM/50 ML 1 GM/50 ML BAG IV SCH (10:09)
[2019-07-05] MEDS: SODIUM CHLORIDE FLUSH SYRINGE 10 ML IV SCH ×2 (10:10→21:31)
[2019-07-05] MEDS: HYDROMET PO PRN (14:21)
--- NOTE | 2019-07-05 16:50 | Progress Note ---
Assessment and Plan - Patient Problems (1) Asthma exacerbation Current Visit: Yes Status: Acute (2) Chest pain Current Visit: Yes Status: Acute (3) Elevated troponin Current Visit: Yes Status: Acute (4) HTN (hypertension) Current Visit: Yes Status: Acute (5) Acute bronchitis Current Visit: Yes Status: Acute History Interval history: pt feels much better still coughing and wheezing but much improved Hospitalist Physical - Constitutional Vitals: Temp Pulse Resp BP Pulse Ox 98.2 F 68 16 150/82 94 07/05/19 12:48 07/05/19 15:15 07/05/19 15:15 07/05/19 12:48 07/05/19 12:48 General appearance: Present: no acute distress Results - Labs CBC & Chem 7: 07/03/19 23:00 07/03/19 23:00 Labs: Laboratory Last Values WBC 4.5 K/mm3 (4.5-11.0) 07/03/19 23:00 RBC 4.31 M/mm3 (3.65-5.03) 07/03/19 23:00 Hgb 12.8 gm/dl (10.1-14.3) 07/03/19 23:00 Hct 38.4 % (30.3-42.9) 07/03/19 23:00 MCV 89 fl (79-97) 07/03/19 23:00 MCH 30 pg (28-32) 07/03/19 23:00 MCHC 33 % (30-34) 07/03/19 23:00 RDW 15.0 % (13.2-15.2) 07/03/19 23:00 Plt Count 230 K/mm3 (140-440) 07/03/19 23:00 Lymph % (Auto) 19.0 % (13.4-35.0) 07/03/19 23:00 [place] % (Auto) 3.8 % (0.0-7.3) 07/03/19 23:00 Eos % (Auto) 1.7 % (0.0-4.3) 07/03/19 23:00 Baso % (Auto) 0.6 % (0.0-1.8) 07/03/19 23:00 Lymph # 0.8 K/mm3 (1.2-5.4) L 07/03/19 23:00 [place] # 0.2 K/mm3 (0.0-0.8) 07/03/19 23:00 Eos # 0.1 K/mm3 (0.0-0.4) 07/03/19 23:00 Baso # 0.0 K/mm3 (0.0-0.1) 07/03/19 23:00 Seg Neutrophils % 74.9 % (40.0-70.0) H 07/03/19 23:00 Seg Neutrophils # 3.4 K/mm3 (1.8-7.7) 07/03/19 23:00 PT 13.5 Sec. (12.2-14.9) 07/03/19 17:20 INR 1.06 (0.87-1.13) 07/03/19 17:20 APTT 26.0 Sec. (24.2-36.6) 07/03/19 17:20 D-Dimer > 28556 ng/mlDDU (0-234) H 07/03/19 17:20 Sodium 137 mmol/L (137-145) 07/03/19 23:00 Potassium 3.9 mmol/L (3.6-5.0) D 07/03/19 23:00 Chloride 101.1 mmol/L (98-107) 07/03/19 23:00 Carbon Dioxide 23 mmol/L (22-30) 07/03/19 23:00 Anion Gap 17 mmol/L 07/03/19 23:00 BUN 7 mg/dL (7-17) 07/03/19 23:00 Creatinine 0.8 mg/dL (0.7-1.2) 07/03/19 23:00 Estimated GFR > 60 ml/min 07/03/19 23:00 BUN/Creatinine Ratio 9 % 07/03/19 23:00 Glucose 179 mg/dL (65-100) H 07/03/19 23:00 Calcium 8.7 mg/dL (8.4-10.2) 07/03/19 23:00 Magnesium 2.00 mg/dL (1.7-2.3) 07/03/19 16:20 Troponin T 0.074 ng/mL (0.00-0.029) H 07/04/19 12:22 Triglycerides 97 mg/dL (2-149) 07/03/19 14:23 Cholesterol 174 mg/dL (50-199) 07/03/19 14:23 LDL Cholesterol Direct 117 mg/dL (50-130) 07/03/19 14:23 HDL Cholesterol 44 mg/dL (40-59) 07/03/19 14:23 Cholesterol/HDL Ratio 3.95 % 07/03/19 14:23 Urine Color Yellow (Yellow) 07/03/19 19:55 Urine Turbidity Slightly-cloudy (Clear) 07/03/19 19:55 Urine pH 7.0 (5.0-7.0) 07/03/19 19:55 Ur Specific [place] 1.011 (1.003-1.030) 07/03/19 19:55 Urine Protein <15 mg/dl mg/dL (Negative) 07/03/19 19:55 Urine Glucose (UA) Neg mg/dL (Negative) 07/03/19 19:55 Urine Ketones Neg mg/dL (Negative) 07/03/19 19:55 Urine Blood Mod (Negative) 07/03/19 19:55 Urine Nitrite Neg (Negative) 07/03/19 19:55 Urine Bilirubin Neg (Negative) 07/03/19 19:55 Urine Urobilinogen < 2.0 mg/dL (<2.0) 07/03/19 19:55 Ur Leukocyte Esterase Mod (Negative) 07/03/19 19:55 Urine WBC (Auto) 7.0 /HPF (0.0-6.0) H 07/03/19 19:55 Urine RBC (Auto) 6.0 /HPF (0.0-6.0) 07/03/19 19:55 U Epithel Cells (Auto) 5.0 /HPF (0-13.0) 07/03/19 19:55 Urine Bacteria (Auto) 1+ /HPF (Negative) 07/03/19 19:55 Urine Mucus Few /HPF 07/03/19 19:55 Active Medications - Current Medications Current Medications: Generic Name Dose Route Start Last Admin Trade Name Freq PRN Reason Stop Dose Admin Acetaminophen 650 mg 07/03/19 21:02 Tylenol PO Q4H PRN Pain MILD(1-3)/Fever >100.5/[place] Acetaminophen/Hydrocodone Bitart 1 each 07/04/19 02:16 07/04/19 08:45 [place] 5/325 PO 1 each Q6H PRN Administration Pain, Moderate (4-6) Albuterol 2.5 mg 07/04/19 17:12 Proventil IH Q4HRT PRN Shortness Of Breath Albuterol/Ipratropium 1 ampul 07/04/19 20:00 07/05/19 15:33 Duoneb *Not For Prn Use* IH 1 ampul Q6HRT KARLIE Administration Amlodipine Besylate 10 mg 07/06/19 10:00 Norvasc PO QDAY KARLIE Aspirin 81 mg 07/04/19 10:00 07/05/19 10:08 Halfprin Ec PO 81 mg QDAY KARLIE Administration Diphenhydramine HCl 25 mg 07/04/19 01:15 Benadryl PO Q8HR PRN Itching Enoxaparin Sodium 90 mg 07/04/19 06:00 07/05/19 05:32 Lovenox 1 mg/kg (90 mg) 90 mg SUB-Q Administration Q12H KARLIE Fluoxetine HCl 20 mg 07/04/19 10:00 07/05/19 10:08 Prozac PO 20 mg QDAY KARLIE Administration Fluticasone Propionate 100 mcg 07/04/19 10:00 07/05/19 10:09 Flonase NS 100 mcg QDAY KARLIE Administration Gabapentin 600 mg 07/04/19 06:00 07/05/19 14:21 Neurontin PO 600 mg Q8HR KARLIE Administration Hydralazine HCl 5 mg 07/04/19 02:16 07/04/19 14:13 Apresoline IV 5 mg Q6HR PRN Administration Hypertension Hydrocodone Bit/Homatropine Methylb 5 ml 07/04/19 17:10 07/05/19 14:21 Hydromet PO 5 ml Q6H PRN Administration Cough Ceftriaxone Sodium 1 gm in 50 mls @ 100 mls/hr 07/04/19 10:00 07/05/19 10:09 Rocephin/Ns 1 Gm/50 Ml IV 100 mls/hr Q24HR KARLIE Administration Protocol Levothyroxine Sodium 112 mcg 07/04/19 06:00 07/05/19 05:31 Synthroid PO 112 mcg QAM@0600 [facility]LIE Administration Meclizine HCl 12.5 mg 07/04/19 10:00 07/05/19 10:09 Antivert PO 12.5 mg QDAY KARLIE Administration Methylprednisolone Sodium Succinate 80 mg 07/04/19 06:00 07/05/19 14:21 Solu-Medrol IV 80 mg Q8HR KARLIE Administration Metoprolol Tartrate 25 mg 07/04/19 10:00 07/05/19 10:08 Lopressor PO 25 mg BID KARLIE Administration Metoprolol Tartrate 50 mg 07/04/19 22:00 07/05/19 10:08 Lopressor PO 50 mg BID KARLIE Administration Nitroglycerin 0.4 mg 07/03/19 21:02 Nitrostat SL Q5M PRN Chest Pain Ondansetron HCl 4 mg 07/03/19 21:02 Zofran IV Q8H PRN Nausea And Vomiting Polyethylene Glycol 17 gm 07/04/19 17:12 07/04/19 17:34 Miralax 3350 PO 17 gm BID PRN Administration Constipation Sodium Chloride 10 ml 07/03/19 22:00 07/05/19 10:10 Sodium Chloride Flush Syringe 10 Ml IV 10 ml BID KARLIE Administration Sodium Chloride 10 ml 07/03/19 21:02 Sodium Chloride Flush Syringe 10 Ml IV PRN PRN LINE FLUSH Nutrition/Malnutrition Assess - Dietary Evaluation Nutrition/Malnutrition Findings: Nutrition Notes Start: 07/04/19 10:26 Freq: Status: Active Protocol: Document 07/04/19 10:26 CC (Rec: 07/04/19 11:14 CC [id number]) Co-Sign 07/04/19 10:26 LP Nutrition Notes Need for Assessment generated from: MST Initial or Follow up Assessment Current Diagnosis Hypertension Other Pertinent Diagnosis Thyroid dx, asthma Current Diet Cardiac diet, NPO after midnight Labs/Tests Reviewed Pertinent Medications Solumedral Height 5 ft 6 in Weight 89.2 kg Usual Body Weight 104.5 kg [place] Body Weight (kg) 59.09 BMI 31.7 Intake Prior to Admission Excellent Weight change and time frame 14.6% /2 years (not significant) Weight Status Appropriate Subjective/Other Information Pt stated she has had unintentional wt loss of 30lbs in the past 2 years d/t stress. Pt stated she has been more active in past 2 years to control wt because "weight problems run in her family." Pt stated [employer] her appetite has been excellent. 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 Burn Absent Trauma Absent GI Symptoms Nausea Difficulty In Swallowing Food Allergy No Current % PO Good (75-100%) Minimum of two criteria No physical signs of malnutrition #1 Nutrition Diagnosis No nutrition diagnosis at this time Is patient on ventilator? No Is Patient Ambulatory and/or Out of Bed Yes REE-([facility]-ambulatory/OOB) [ 1928.875 [id number]] Calculation Used for Recommendations [facility] Additional Notes Pro: 71- 90g/day (0.8-1.0g/kg) Fluid: 1ml/kcal Nutrition Intervention Change Diet Order: continue cardiac diet Goal #1 Meet >80% of energy and protein needs through po Anticipated Discharge Needs: cardiac diet Revisit per MD consult or patient Sign Off request:
[2019-07-06] MEDS: DUONEB *Not for PRN Use IH SCH ×4 (02:05→20:46)
[2019-07-06] MEDS: LOVENOX SUB-Q SCH ×2 (06:48→17:12)
[2019-07-06] MEDS: SYNTHROID PO SCH (06:49)
[2019-07-06] MEDS: NEURONTIN PO SCH ×3 (06:49→21:40)
[2019-07-06] MEDS: HYDROMET PO PRN ×3 (06:49→21:39)
--- NOTE | 2019-07-06 09:03 | Progress Note ---
Assessment and Plan Chest pain secondary to coughing and pulmonary disease Mild troponin elevation secondary to hypertension and pulmonary disease Accelerated HTN Asthma with acute exacerbation History of Depression History of Hypothyroidism s/p thyroidectomy Echocardiogram shows a normal left ventricular systolic function, EF 60%. Plan for outpatient evaluation for ischemia once respiratory issues are resolved. Subjective Date of service: 07/06/19 Interval history: No cardiac complaints. Objective Vital Signs Temp Pulse Pulse Resp Resp BP Pulse Ox 07/06/19 08:32 98.6 F 55 L 18 148/86 98 07/06/19 07:42 85 18 07/06/19 04:55 97.5 F L 07/06/19 04:53 64 18 129/75 96 07/06/19 03:00 64 07/06/19 00:07 97.8 F 07/06/19 00:06 64 18 163/82 96 07/05/19 23:24 98 07/05/19 21:26 95 H 145/85 07/05/19 20:29 71 20 07/05/19 20:03 98.6 F 07/05/19 20:01 58 L 18 145/85 92 07/05/19 19:00 96 H 07/05/19 16:50 97.9 F 64 18 169/101 96 07/05/19 15:15 68 16 07/05/19 12:48 98.2 F 67 18 150/82 94 07/05/19 11:00 60 07/05/19 10:08 77 170/90 07/05/19 10:07 77 170/90 - Physical Examination General: No Apparent Distress HEENT: Positive: PERRL Neck: Positive: trachea midline Cardiac: Positive: Reg Rate and Rhythm Lungs: Positive: Decreased Breath Sounds Neuro: Positive: Grossly Intact Extremities: Absent: edema
[2019-07-06] MEDS: PROzac PO SCH (09:34)
[2019-07-06] MEDS: ANTIVERT PO SCH (09:35)
[2019-07-06] MEDS: NORVASC PO SCH (09:35)
[2019-07-06] MEDS: HALFPRIN EC PO SCH (09:35)
[2019-07-06] MEDS: LOPRESSOR PO SCH ×2 (09:36→21:41)
[2019-07-06] MEDS: FLONASE NS SCH (09:36)
[2019-07-06] MEDS: ROCEPHIN/NS 1 GM/50 ML 1 GM/50 ML BAG IV SCH (09:37)
[2019-07-06] MEDS: SODIUM CHLORIDE FLUSH SYRINGE 10 ML IV SCH ×2 (09:37→21:40)
--- NOTE | 2019-07-06 09:55 | Discharge Summary ---
Providers - Providers Date of Admission: 07/03/19 21:02 Date of discharge: 07/06/19 Attending physician: PRICILLA POP 07/03/19 Consult to Cardiac Rehabilitation [CONS] Routine Reason For Exam: Phase I 07/03/19 16:57 Consult to Physician [CONS] Urgent Comment: Dr. Mulligan spoke with Dr. Zelaya @ [id number] Consulting Provider: MASOUD ZELAYA Physician Instructions: Reason For Exam: cp, elevated trop 07/05/19 21:35 Consult to Case Management [CONS] Urgent Services Needed at Discharge: [employer] Supervisor Notified:: order entered Was contact made?: No Additional Physician Instructions: Patient need assit with obtaining medication on discharge Primary care physician: [facility], Hospitalization Reason for admission: cp Condition: Stable Hospital course: 58 year old female with PMHx of asthma, hypertension, chronic pain, HDL, depression, Hypothyroidism who presented to the ER with complaints of chest pain. Patient stated that she experienced the same pain about 1 week ago as she was walking, described as chest pressure along with SOB. Patient stated that the pain was located in the left substernal area. Pt also reports a productive cough of thick green sputum and wheezing for a few days and the cough made the chest pain worse. The patient was admitted with diagnosis of chest pain, accelerated hypertension, acute asthma exacerbation and elevated troponin. Cardiology saw the patient in consultation and felt the chest pain was secondary to coughing and pulmonary disease. CTA of the chest was negative for PE. The elevated troponin secondary to hypertension and pulmonary disease. The patient underwent echocardiogram that showed a normal left ventricular systolic function with EF 60%. Cardiology opted for outpatient evaluation for ischemia once respiratory issues were resolved. Patient received bronchodilator and systemic steroids with resolution of the asthma exacerbation. Patient's blood pressure stabilized with antihypertensive medications. Patient was felt to have received maximal hospital benefit and will be discharged home. Dedicated discharge time 32 minutes. Disposition: - TO HOME OR SELFCARE Time spent for discharge: 32 - Discharge Diagnoses (1) Acute bronchitis Status: Acute (2) Asthma exacerbation Status: Acute (3) Chest pain Status: Acute (4) Elevated troponin Status: Acute (5) HTN (hypertension) Status: Acute Core Measure Documentation - Palliative Care Palliative Care/ Comfort Measures: Not Applicable - Core Measures Any of the following diagnoses?: none Exam - Constitutional Vitals: Temp Pulse Resp BP Pulse Ox 98.6 F 56 L 18 148/86 98 07/06/19 08:32 07/06/19 09:36 07/06/19 08:32 07/06/19 09:36 07/06/19 08:32 General appearance: Present: no acute distress, well-nourished - EENT Eyes: Present: PERRL ENT: hearing intact, clear oral mucosa - Neck Neck: Present: supple, normal ROM - Respiratory Respiratory effort: normal Respiratory: bilateral: CTA - Cardiovascular Heart Sounds: Present: S1 & S2. Absent: rub, click - Extremities Extremities: pulses symmetrical, No edema Peripheral Pulses: within normal limits - Abdominal General gastrointestinal: Present: soft, non-tender, non-distended, normal bowel sounds Female genitourinary: Present: normal - Integumentary Integumentary: Present: clear, warm, dry - Musculoskeletal Musculoskeletal: gait normal, strength equal bilaterally - Psychiatric Psychiatric: appropriate mood/affect, intact judgment & insight - Neurologic Neurologic: CNII-XII intact, moves all extremities Plan Activity: advance as tolerated Weight Bearing Status: Weight Bear as Tolerated Diet: low fat, low cholesterol, low salt [facility] [Primary Care Provider[facility] - 3-5 Days MASOUD ZELAYA MD [Staff Physician] - 7 Days Prescriptions: Albuterol Sulfate [Albuterol 0.63% NEBS] 3 ml INHALATION QID 30 Days Meclizine [Antivert] 12.5 mg PO QDAY #12 Aspirin 325 mg PO ONCE #30 diphenhydrAMINE [Benadryl CAP] 25 mg PO Q8HR PRN #15 capsule PRN Reason: Itching Cyclobenzaprine [Flexeril 10 MG TAB] 20 mg PO BID PRN #20 PRN Reason: Muscle Spasm Fluticasone [Flonase] 2 spray NS QDAY 30 Days bottle hydroCHLOROthiazide [HCTZ] 12.5 mg PO QDAY #30 cap Metoprolol [Lopressor TAB] 50 mg PO BID #60 tablet methylPREDNISolone [Medrol 4MG DOSEPAK (21 tabs)] 4 mg PO DAILY #1 tab.ds.pk Gabapentin [Neurontin] 600 mg PO Q8H #90 HYDROcodone/APAP 5-325 [[place] 5-325 mg TAB] 1 each PO Q6H PRN #12 tablet PRN Reason: Pain, Moderate (4-6) amLODIPine [Norvasc] 10 mg PO DAILY #30 amLODIPine [Norvasc] 10 mg PO QDAY #30 tablet FLUoxetine [PROzac] 20 mg PO QDAY #30 cap Levothyroxine [Synthroid] 112 mcg PO QAM #30
[2019-07-06] MEDS: SOLU-Medrol IV SCH ×3 (14:06→21:39)
[2019-07-07] MEDS: HYDROMET PO PRN ×2 (06:17→13:35)
[2019-07-07] MEDS: SYNTHROID PO SCH (06:18)
[2019-07-07] MEDS: NEURONTIN PO SCH ×2 (06:18→14:00)
[2019-07-07] MEDS: SOLU-Medrol IV SCH ×2 (06:19→14:00)
[2019-07-07] MEDS: LOVENOX SUB-Q SCH (06:19)
[2019-07-07] MEDS: DUONEB *Not for PRN Use IH SCH ×2 (08:04→14:27)
[2019-07-07] MEDS: HALFPRIN EC PO SCH (10:22)
[2019-07-07] MEDS: NORVASC PO SCH (10:22)
[2019-07-07] MEDS: LOPRESSOR PO SCH (10:22)
[2019-07-07] MEDS: PROzac PO SCH (10:22)
[2019-07-07] MEDS: ROCEPHIN/NS 1 GM/50 ML 1 GM/50 ML BAG IV SCH (10:23)
[2019-07-07] MEDS: ANTIVERT PO SCH (10:23)
[2019-07-07] MEDS: FLONASE NS SCH (10:23)
[2019-07-07] MEDS: SODIUM CHLORIDE FLUSH SYRINGE 10 ML IV SCH (10:24)
--- NOTE | 2019-07-07 10:24 | Progress Note ---
Assessment and Plan 1. Atypical chest pain probably pleuritic exacerbated by coughing 2. Essential hypertension 3. Hypothyroidism 4. History of depression 5. Obesity Plan. Cardiac-[place] stable echocardiogram shows normal left ventricular size and function and chest x-ray shows no acute cardiopulmonary process. Plan o for further cardiac evaluation as an outpatient. Subjective Date of service: 07/07/19 Interval history: Patient still has cough but no chest pains Objective Vital Signs Temp Pulse Pulse Pulse Resp Resp BP 07/07/19 08:05 68 20 07/07/19 08:00 97.9 F 63 16 163/88 07/07/19 03:56 97.6 F 64 16 161/88 07/06/19 23:34 07/06/19 22:49 98.0 F 67 18 163/83 07/06/19 22:00 80 20 07/06/19 21:41 68 167/85 07/06/19 21:14 80 07/06/19 20:44 66 16 07/06/19 19:04 97.9 F 68 18 167/85 07/06/19 16:31 98.0 F 66 18 141/76 07/06/19 13:38 71 18 07/06/19 12:08 97.9 F 57 L 18 165/87 07/06/19 12:00 20 07/06/19 11:00 80 Pulse Ox 07/07/19 08:05 07/07/19 08:00 92 07/07/19 03:56 96 07/06/19 23:34 98 07/06/19 22:49 92 07/06/19 22:00 98 07/06/19 21:41 07/06/19 21:14 07/06/19 20:44 07/06/19 19:04 91 07/06/19 16:31 97 07/06/19 13:38 07/06/19 12:08 89 07/06/19 12:00 99 07/06/19 11:00 - Physical Examination General: No Apparent Distress HEENT: Positive: PERRL Neck: Positive: trachea midline Cardiac: Positive: Reg Rate and Rhythm, Regular Rate, S1/S2, PMI, Laterally Displaced Lungs: Positive: clear to auscultation, No Wheeze, Rales, Rhonchi Neuro: Positive: Grossly Intact, No Lateralizing Findings Abdomen: Positive: Unremarkable, Soft Extremities: Absent: edema
--- NOTE | 2019-07-07 10:35 | Progress Note ---
Assessment and Plan Assessment and plan: Asthma exacerbation Continue bronchodilators and steroids. Chest pain Outpatient evaluation per cardiology HTN (hypertension) Continue antihypertensive medications Acute bronchitis Continue antibiotics and likely discharge in am - Patient Problems (1) Acute bronchitis Current Visit: Yes Status: Acute (2) Asthma exacerbation Current Visit: Yes Status: Acute (3) Chest pain Current Visit: Yes Status: Acute (4) Elevated troponin Current Visit: Yes Status: Acute (5) HTN (hypertension) Current Visit: Yes Status: Acute History Interval history: No new issues overnight. Hospitalist Physical - Constitutional Vitals: Temp Pulse Resp BP Pulse Ox 97.9 F 68 20 162/88 92 07/07/19 08:00 07/07/19 10:22 07/07/19 08:05 07/07/19 10:07/07/19 08:00 General appearance: Present: no acute distress, well-nourished - EENT Eyes: Present: PERRL, EOM intact ENT: hearing intact, clear oral mucosa, dentition normal - Neck Neck: Present: supple, normal ROM - Respiratory Respiratory effort: normal Respiratory: bilateral: CTA - Cardiovascular Rhythm: regular Heart Sounds: Present: S1 & S2. Absent: gallop, rub - Extremities Extremities: no ischemia, No edema, Full ROM - Abdominal General gastrointestinal: soft, non-tender, non-distended, normal bowel sounds - Integumentary Integumentary: Present: clear, warm, dry - Neurologic Neurologic: CNII-XII intact, moves all extremities Results - Labs CBC & Chem 7: 07/03/19 23:00 07/03/19 23:00 Labs: Laboratory Last Values WBC 4.5 K/mm3 (4.5-11.0) 07/03/19 23:00 RBC 4.31 M/mm3 (3.65-5.03) 07/03/19 23:00 Hgb 12.8 gm/dl (10.1-14.3) 07/03/19 23:00 Hct 38.4 % (30.3-42.9) 07/03/19 23:00 MCV 89 fl (79-97) 07/03/19 23:00 MCH 30 pg (28-32) 07/03/19 23:00 MCHC 33 % (30-34) 07/03/19 23:00 RDW 15.0 % (13.2-15.2) 07/03/19 23:00 Plt Count 230 K/mm3 (140-440) 07/03/19 23:00 Lymph % (Auto) 19.0 % (13.4-35.0) 07/03/19 23:00 [place] % (Auto) 3.8 % (0.0-7.3) 07/03/19 23:00 Eos % (Auto) 1.7 % (0.0-4.3) 07/03/19 23:00 Baso % (Auto) 0.6 % (0.0-1.8) 07/03/19 23:00 Lymph # 0.8 K/mm3 (1.2-5.4) L 07/03/19 23:00 [place] # 0.2 K/mm3 (0.0-0.8) 07/03/19 23:00 Eos # 0.1 K/mm3 (0.0-0.4) 07/03/19 23:00 Baso # 0.0 K/mm3 (0.0-0.1) 07/03/19 23:00 Seg Neutrophils % 74.9 % (40.0-70.0) H 07/03/19 23:00 Seg Neutrophils # 3.4 K/mm3 (1.8-7.7) 07/03/19 23:00 PT 13.5 Sec. (12.2-14.9) 07/03/19 17:20 INR 1.06 (0.87-1.13) 07/03/19 17:20 APTT 26.0 Sec. (24.2-36.6) 07/03/19 17:20 D-Dimer > 29999 ng/mlDDU (0-234) H 07/03/19 17:20 Sodium 137 mmol/L (137-145) 07/03/19 23:00 Potassium 3.9 mmol/L (3.6-5.0) D 07/03/19 23:00 Chloride 101.1 mmol/L (98-107) 07/03/19 23:00 Carbon Dioxide 23 mmol/L (22-30) 07/03/19 23:00 Anion Gap 17 mmol/L 07/03/19 23:00 BUN 7 mg/dL (7-17) 07/03/19 23:00 Creatinine 0.8 mg/dL (0.7-1.2) 07/03/19 23:00 Estimated GFR > 60 ml/min 07/03/19 23:00 BUN/Creatinine Ratio 9 % 07/03/19 23:00 Glucose 179 mg/dL (65-100) H 07/03/19 23:00 Calcium 8.7 mg/dL (8.4-10.2) 07/03/19 23:00 Magnesium 2.00 mg/dL (1.7-2.3) 07/03/19 16:20 Troponin T 0.074 ng/mL (0.00-0.029) H 07/04/19 12:22 Triglycerides 97 mg/dL (2-149) 07/03/19 14:23 Cholesterol 174 mg/dL (50-199) 07/03/19 14:23 LDL Cholesterol Direct 117 mg/dL (50-130) 07/03/19 14:23 HDL Cholesterol 44 mg/dL (40-59) 07/03/19 14:23 Cholesterol/HDL Ratio 3.95 % 07/03/19 14:23 Urine Color Yellow (Yellow) 07/03/19 19:55 Urine Turbidity Slightly-cloudy (Clear) 07/03/19 19:55 Urine pH 7.0 (5.0-7.0) 07/03/19 19:55 Ur Specific [place] 1.011 (1.003-1.030) 07/03/19 19:55 Urine Protein <15 mg/dl mg/dL (Negative) 07/03/19 19:55 Urine Glucose (UA) Neg mg/dL (Negative) 07/03/19 19:55 Urine Ketones Neg mg/dL (Negative) 07/03/19 19:55 Urine Blood Mod (Negative) 07/03/19 19:55 Urine Nitrite Neg (Negative) 07/03/19 19:55 Urine Bilirubin Neg (Negative) 07/03/19 19:55 Urine Urobilinogen < 2.0 mg/dL (<2.0) 07/03/19 19:55 Ur Leukocyte Esterase Mod (Negative) 07/03/19 19:55 Urine WBC (Auto) 7.0 /HPF (0.0-6.0) H 07/03/19 19:55 Urine RBC (Auto) 6.0 /HPF (0.0-6.0) 07/03/19 19:55 U Epithel Cells (Auto) 5.0 /HPF (0-13.0) 07/03/19 19:55 Urine Bacteria (Auto) 1+ /HPF (Negative) 07/03/19 19:55 Urine Mucus Few /HPF 07/03/19 19:55 Active Medications - Current Medications Current Medications: Generic Name Dose Route Start Last Admin Trade Name Freq PRN Reason Stop Dose Admin Acetaminophen 650 mg 07/03/19 21:02 Tylenol PO Q4H PRN Pain MILD(1-3)/Fever >100.5/PENN Acetaminophen/Hydrocodone Bitart 1 each 07/04/19 02:16 07/04/19 08:45 [place] 5/325 PO 1 each Q6H PRN Administration Pain, Moderate (4-6) Albuterol 2.5 mg 07/04/19 17:12 Proventil IH Q4HRT PRN Shortness Of Breath Albuterol/Ipratropium 1 ampul 07/07/19 08:00 07/07/19 08:04 Duoneb *Not For Prn Use* IH 1 ampul QIDRT KARLIE Administration Amlodipine Besylate 10 mg 07/06/19 10:00 07/07/19 10:22 Norvasc PO 10 mg QDAY KARLIE Administration Aspirin 81 mg 07/04/19 10:00 07/07/19 10:22 Halfprin Ec PO 81 mg QDAY KARLIE Administration Diphenhydramine HCl 25 mg 07/04/19 01:15 Benadryl PO Q8HR PRN Itching Enoxaparin Sodium 40 mg 07/07/19 22:00 Lovenox SUB-Q QDAY@2200 KARLIE Fluoxetine HCl 20 mg 07/04/19 10:00 07/07/19 10:22 Prozac PO 20 mg QDAY KARLIE Administration Fluticasone Propionate 100 mcg 07/04/19 10:00 07/07/19 10:23 Flonase NS 100 mcg QDAY KARLIE Administration Gabapentin 600 mg 07/04/19 06:00 07/07/19 06:18 Neurontin PO 600 mg Q8HR KARLIE Administration Hydralazine HCl 5 mg 07/04/19 02:16 07/04/19 14:13 Apresoline IV 5 mg Q6HR PRN Administration Hypertension Hydrocodone Bit/Homatropine Methylb 5 ml 07/04/19 17:10 07/07/19 06:17 Hydromet PO 5 ml Q6H PRN Administration Cough Ceftriaxone Sodium 1 gm in 50 mls @ 100 mls/hr 07/04/19 10:00 07/07/19 10:23 Rocephin/Ns 1 Gm/50 Ml IV 100 mls/hr Q24HR KARLIE Administration Protocol Levothyroxine Sodium 112 mcg 07/04/19 06:00 07/07/19 06:18 Synthroid PO 112 mcg QAM@0600 KARLIE Administration Meclizine HCl 12.5 mg 07/04/19 10:00 07/07/19 10:23 Antivert PO 12.5 mg QDAY KARLIE Administration Methylprednisolone Sodium Succinate 80 mg 07/04/19 06:00 07/07/19 06:19 Solu-Medrol IV 80 mg Q8HR KARLIE Administration Metoprolol Tartrate 50 mg 07/04/19 22:00 07/07/19 10:22 Lopressor PO 50 mg BID KARLIE Administration Nitroglycerin 0.4 mg 07/03/19 21:02 Nitrostat SL Q5M PRN Chest Pain Ondansetron HCl 4 mg 07/03/19 21:02 Zofran IV Q8H PRN Nausea And Vomiting Polyethylene Glycol 17 gm 07/04/19 17:12 07/04/19 17:34 Miralax 3350 PO 17 gm BID PRN Administration Constipation Sodium Chloride 10 ml 07/03/19 22:00 07/07/19 10:24 Sodium Chloride Flush Syringe 10 Ml IV 10 ml BID KARLIE Administration Sodium Chloride 10 ml 07/03/19 21:02 Sodium Chloride Flush Syringe 10 Ml IV PRN PRN LINE FLUSH Nutrition/Malnutrition Assess - Dietary Evaluation Nutrition/Malnutrition Findings: Nutrition Notes Start: 07/04/19 10:26 Freq: Status: Active Protocol: Document 07/04/19 10:26 CC (Rec: 07/04/19 11:14 CC [id number]) Co-Sign 07/04/19 10:26 LP Nutrition Notes Need for Assessment generated from: [facility] [place] Initial or Follow up Assessment Current Diagnosis Hypertension Other Pertinent Diagnosis Thyroid dx, asthma Current Diet Cardiac diet, NPO after midnight Labs/Tests Reviewed Pertinent Medications Solumedral Height 5 ft 6 in Weight 89.2 kg Usual Body Weight 104.5 kg [place] Body Weight (kg) 59.09 BMI 31.7 Intake Prior to Admission Excellent Weight change and time frame 14.6% /2 years (not significant) Weight Status Appropriate Subjective/Other Information Pt stated she has had unintentional wt loss of 30lbs in the past 2 years d/t stress. 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 Burn Absent Trauma Absent GI Symptoms Nausea Difficulty In Swallowing Food Allergy No Current % PO Good (75-100%) Minimum of two criteria No physical signs of malnutrition #1 Nutrition Diagnosis No nutrition diagnosis at this time Is patient on ventilator? No Is Patient Ambulatory and/or Out of Bed Yes REE-([facility]-ambulatory/OOB) [ [id number] [id number]] Calculation Used for Recommendations [facility] Additional Notes Pro: 71- 90g/day (0.8-1.0g/kg) Fluid: 1ml/kcal Nutrition Intervention Change Diet Order: continue cardiac diet Goal #1 Meet >80% of energy and protein needs through po Anticipated Discharge Needs: cardiac diet Revisit per MD consult or patient Sign Off request:
[2019-07-07 11:57] VITALS: BP 167/94
[2019-07-07] MEDS ORDERED: LOVENOX SUB-Q SCH (22:00)
== END 2019-07-07 15:10 | disposition home or self-care (01) ==
LOC: ED 13:16 → 4A 21:02
PROVIDERS: ADMIT Internal Medicine; ATTEND Hospitalist
DX: R07.89 Other chest pain (principal); I21.29 ST elevation (STEMI) myocardial infarction involving other sites; J20.9 Acute bronchitis, unspecified; N39.0 Urinary tract infection, site not specified; J45.901 Unspecified asthma with (acute) exacerbation; G89.29 Other chronic pain; E78.5 Hyperlipidemia, unspecified; E03.9 Hypothyroidism, unspecified
CPT/HCPCS: 36415; 71045; 71275; 80048; 80061; 81001; 83735; 84484; 85025; 85379; 85610; 85730; 93005; 93010; 93306; 93970; 94640; 94644; 96365; 96366; 96367; 96372; 96375; 96376; 99284; G0378; J0360; J0456; J0696; J1650; J2930; J7050; Q9967

== ENCOUNTER 2020-12-10 14:11 | Inpatient (IN) | payer OTHER ==
[2020-12-10] MEDS ORDERED: ASPIRIN 325 MG TAB PO ONE (14:19)
--- NOTE | 2020-12-10 14:23 | Event Note ---
ED Screening Note Date of service: 12/10/20 Time: 14:23 ED Screening Note: Patient complains of shortness of breath and chest pain x3 days Shortness of breath worsens with lying down Sent here from [facility] urgent care for evaluation for possible CHF This initial assessment/diagnostic orders/clinical plan/treatment(s) is/are subject to change based on patients health status, clinical progression and re- assessment by fellow clinical providers in the ED. Further treatment and workup at subsequent clinical providers discretion. Patient/guardian urged not to elope from the ED as their condition may be serious if not clinically assessed and managed. Initial orders include: Labs EKG Chest x-ray
--- NOTE | 2020-12-10 14:45 | XRay Report ---
XR chest routine 2V INDICATION / CLINICAL INFORMATION: CP /DIFFICULT BREATHING. COMPARISON: 07/03/2019 FINDINGS: SUPPORT DEVICES: None. HEART /PULMONARY VASCULATURE: No significant abnormality. LUNGS / PLEURA: No significant pulmonary or pleural abnormality. No pneumothorax. ADDITIONAL FINDINGS: No significant additional findings. IMPRESSION: 1. No acute findings. Signer Name: Lavon Holman MD Signed: 12/10/2020 2:41 PM Workstation Name: [id number]
--- NOTE | 2020-12-10 14:55 | Emergency Department Report ---
ED Shortness of Breath HPI - General Chief Complaint: Dyspnea/Respdistress Stated Complaint: SOB/CHF SENT FROM [facility] Time Seen by Provider: 12/10/20 14:23 Source: patient Mode of arrival: Ambulatory Limitations: No Limitations - History of Present Illness Initial Comments: 60-year-old female, history of hypertension, fibromyalgia, hypothyroidism, asthma, presents to ED with difficulty breathing. Patient reports she has been having some shortness of breath for the last 3 weeks. She reports dyspnea on exertion and also orthopnea. She denies any lower extremity swelling. Patient reports pain to bilateral lower extremities secondary to neuropathy and her fibromyalgia. Patient states she had her first appointment with a primary care provider today. Patient states that the office she started having some mild left-sided chest pain and she was advised to come to the emergency room. She denies any chest pain at this time. Patient also reports that her history of asthma. States over the last few weeks she thought that her difficulty breathing may be secondary to her asthma however she states reports no improvement with albuterol. MD Complaint: shortness of breath -: week(s) (3) Severity: moderate Consistency: intermittent Improves With: rest, upright position Worsens With: lying flat, exertion Known History Of: asthma Treatments Prior to Arrival: bronchodilator - Related Data Home Oxygen Therapy: No Home Medications Medication Instructions Recorded Confirmed Last Taken Amlodipine Besylate [Norvasc] 5 mg PO DAILY 12/10/20 12/10/20 Unknown FLUoxetine [PROzac] 25 mg PO QDAY 12/10/20 12/10/20 Unknown Gabapentin [Neurontin] 600 mg PO Q8HR 12/10/20 12/10/20 Unknown Levothyroxine [Synthroid] 125 mcg PO QAM 12/10/20 12/10/20 Unknown Meclizine [Antivert] 12.5 mg PO BID PRN 12/10/20 12/10/20 Unknown Allergies Allergy/AdvReac Type Severity Reaction Status Date / Time lisinopril Allergy Angioedema Verified 12/10/20 14:51 ED Review of Systems ROS: Stated complaint: SOB/CHF SENT FROM [facility] Other details as noted in HPI Comment: All other systems reviewed and negative Constitutional: denies: fever Respiratory: orthopnea, SOB with exertion. denies: cough Cardiovascular: chest pain Gastrointestinal: denies: nausea, vomiting Musculoskeletal: other (Patient denies lower extremity swelling) ED Past Medical Hx - Past Medical History Hx Hypertension: Yes Hx Congestive Heart Failure: Yes Hx Diabetes: No Hx Deep Vein Thrombosis: Yes (after leg surgery) Hx Arthritis: Yes Hx Kidney Stones: Yes Hx Asthma: Yes Hx COPD: No Hx Tuberculosis: No Hx HIV: No Additional medical history: Fibromylagia, thyroid dz on Synthroid - Surgical History Additional Surgical History: Left knee and bilateral feet. Partial thyroidectomy - Social History Smoking Status: Never Smoker Substance Use Type: None - Medications Home Medications: Home Medications Medication Instructions Recorded Confirmed Last Taken Type Amlodipine Besylate [Norvasc] 5 mg PO DAILY 12/10/20 12/10/20 Unknown History FLUoxetine [PROzac] 25 mg PO QDAY 12/10/20 12/10/20 Unknown History Gabapentin [Neurontin] 600 mg PO Q8HR 12/10/20 12/10/20 Unknown History Levothyroxine [Synthroid] 125 mcg PO QAM 12/10/20 12/10/20 Unknown History Meclizine [Antivert] 12.5 mg PO BID PRN 12/10/20 12/10/20 Unknown History ED Physical Exam - General Limitations: No Limitations General appearance: alert, in no apparent distress - Head Head exam: Present: atraumatic, normocephalic - Eye Eye exam: Present: normal appearance - ENT ENT exam: Present: mucous membranes moist - Neck Neck exam: Present: normal inspection - Respiratory Respiratory exam: Present: normal lung sounds bilaterally. Absent: respiratory distress - Cardiovascular Cardiovascular Exam: Present: regular rate, normal rhythm - GI/Abdominal GI/Abdominal exam: Present: soft. Absent: distended, tenderness - Extremities Exam Extremities exam: Present: normal inspection, tenderness (Entire bilateral lower extremities anterior and posterior aspects). Absent: pedal edema - Neurological Exam Neurological exam: Present: alert, oriented X3 - Psychiatric Psychiatric exam: Present: normal affect, normal mood - Skin Skin exam: Present: warm, dry, intact, normal color ED Course Vital Signs 12/10/20 12/10/20 12/10/20 14:18 14:48 14:49 Temperature 98.5 F Pulse Rate 91 H 94 H Respiratory 22 18 18 Rate Blood Pressure 152/99 129/91 [Right] O2 Sat by Pulse 96 97 Oximetry 12/10/20 12/10/20 12/10/20 14:55 15:19 16:50 Temperature Pulse Rate 93 H 78 89 Respiratory 18 18 Rate Blood Pressure 148/90 156/104 [Right] O2 Sat by Pulse 97 99 Oximetry 12/10/20 18:06 Temperature Pulse Rate 84 Respiratory 18 Rate Blood Pressure 152/86 [Right] O2 Sat by Pulse 97 Oximetry - Consultations Consultation #1: 12/10/20 15:[address] Leigh, cardiology transportation maintenance supervisor. He will consult on the patient. Okay with Lovenox. ED Medical Decision Making - Lab Data Result diagrams: 12/10/20 14:43 12/10/20 14:43 - EKG Data -: EKG Interpreted by [place] EKG shows normal: sinus rhythm, axis, intervals, QRS complexes, ST-T waves Rate: normal - EKG Data Interpretation: no acute changes, other (Old anterior infarct) - Radiology Data Radiology results: report reviewed, image reviewed - Medical Decision Making 60-year-old female presents to ED with 3-week history of dyspnea on exertion and orthopnea. Patient reports an episode of chest pain earlier today while at her PCPs office. Patient sent to ED for evaluation. Currently chest pain-free. EKG shows no ST changes, however troponin is elevated at 2.2. I spoke with dope weigh operator, Dr. Leigh, who will consult on patient. Patient given aspirin and Lovenox here in the ED. Patient will be admitted by hospitalist, Dr. Gilbert, for further management. - Differential Diagnosis CHF, ACS, asthma, pneumonia Critical Care Time: Yes Critical care time in (mins) excluding proc time.: 35 Critical care attestation.: If time is entered above; I have spent that time in minutes in the direct care of this critically ill patient, excluding procedure time. Critical Care Time: 35 min ED Disposition Clinical Impression: NSTEMI (non-ST elevated myocardial infarction) Disposition: DC-[id number] OP ADMIT IP TO THIS HOSP Is pt being admited?: Yes Condition: Stable Time of Disposition: 15:55
[2020-12-10 15:17] LABS: Alanine Aminotransferase 24 units/L (7-56); Albumin 3.2 g/dL (3.9-5); BUN/Creatinine Ratio 9; Blood Urea Nitrogen 9 mg/dL (7-17); Calcium 9.3 mg/dL (8.4-10.2); Hemolysis Index 7
[2020-12-10 15:35] LABS: Chol/HDL Ratio 3.55 %; HDL Cholesterol 40 mg/dL (40-59); LDL Cholesterol,Direct 82 mg/dL (50-130)
[2020-12-10 15:43] LABS: INR 0.98 (0.87-1.13)
[2020-12-10 15:47] LABS: Hematocrit 38.3 % (30.3-42.9); Hemoglobin 12.7 gm/dl (10.1-14.3); Mean Corpuscular HGB Conc 33 % (30-34); Mean Corpuscular Volume 86 fl (79-97); Platelet Count 329 K/mm3 (140-440); Red Blood Count 4.45 M/mm3 (3.65-5.03); Red Cell Distribution Width 14.3 % (13.2-15.2)
[2020-12-10] MEDS ORDERED: ENOXAPARIN 100 MG/1 ML INJ SUB-Q SCH (16:00)
[2020-12-10 16:35] LABS: RBC Morphology Normal; Total Cells Counted 100
[2020-12-10] MEDS: ENOXAPARIN 80 MG/0.8 ML INJ SUB-Q SCH ×2 (16:44→23:20)
[2020-12-10] MEDS: guaiFENesin/CODEINE 100-10MG ORAL LIQD 5 ML PO PRN (23:19)
--- NOTE | 2020-12-10 23:39 | History and Physical Report ---
History of Present Illness Date of examination: 12/10/20 Date of admission: 12/10/20 16:44 Chief complaint: Chest pain and shortness of breath since yesterday History of present illness: 60-year-old female with history of hypertension, hypothyroidism, peripheral neur opathy and fibromyalgia comes in for chest pain since yesterday evening. Chest pain is intermittent and sharp in nature. Chest pain is located to left precordial region. Chest pain is about 8 on a scale of 1-10. No diaphoresis or palpitations. No syncope. Patient also has been having shortness of breath on minimal exertion and on lying down. Patient has not seen a physician recently because of problems with insurance. Patient is funded since yesterday and wanted to see a physician but comes into the emergency room because of the acute onset of chest pain. No fever or chills. No exposure to coronavirus. Patient has class IV NYHA symptoms. - Past Medical History --Hypertension: Yes --Congestive Heart Failure: Yes --Deep Vein Thrombosis: Yes (after leg surgery) --Arthritis: Yes --Kidney Stones: Yes --Asthma: Yes Additional medical history: Fibromylagia, thyroid dz on Synthroid - Surgical History Additional Surgical History: Left knee and bilateral feet. Partial thyroidectomy - Social History Smoking Status: Never Smoker Substance Use Type: None --Family history Htn - Medications Home Medications: Home Medications Medication Instructions Recorded Confirmed Last Taken Type Amlodipine Besylate [Norvasc] 5 mg PO DAILY 12/10/20 12/10/20 Unknown History FLUoxetine [PROzac] 25 mg PO QDAY 12/10/20 12/10/20 Unknown History Gabapentin [Neurontin] 600 mg PO Q8HR 12/10/20 12/10/20 Unknown History Levothyroxine [Synthroid] 125 mcg PO QAM 12/10/20 12/10/20 Unknown History Meclizine [Antivert] 12.5 mg PO BID PRN 12/10/20 12/10/20 Unknown History Review of Systems ROS: Constitutional no weight loss or weight gain no fever or chills HEENT no sore throat no post nasal drip no diplopia Neck no neck stiffness no lymph gland enlargement Chest and lungs chest pain and shortness of breath present. 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 no seizures Skin no rash no itching Psychiatric no depression no homicidal or suicidal tendencies Hematologic no lymphedema or bruising Endocrine no polydipsia no polyuria no cold intolerance no heat intolerance Medications and Allergies Allergies Allergy/AdvReac Type Severity Reaction Status Date / Time lisinopril Allergy Angioedema Verified 12/10/20 14:51 Home Medications Medication Instructions Recorded Confirmed Last Taken Type Amlodipine Besylate [Norvasc] 5 mg PO DAILY 12/10/20 12/10/20 Unknown History FLUoxetine [PROzac] 25 mg PO QDAY 12/10/20 12/10/20 Unknown History Gabapentin [Neurontin] 600 mg PO Q8HR 12/10/20 12/10/20 Unknown History Levothyroxine [Synthroid] 125 mcg PO QAM 12/10/20 12/10/20 Unknown History Meclizine [Antivert] 12.5 mg PO BID PRN 12/10/20 12/10/20 Unknown History Active Meds: Active Medications Enoxaparin Sodium (Enoxaparin 80 Mg/0.8 Ml Inj) 70 mg SUB-Q Q12HR [facility] Last Admin: 12/10/20 23:20 Dose: 70 mg Documented by: Morphine Sulfate (Morphine 2 Mg/1 Ml Inj) 2 mg IV Q4H PRN PRN Reason: Pain, Moderate (4-6) Oxycodone/Acetaminophen (Oxycodone /Acetaminophen 5-325mg Tab) 1 tab PO Q6H PRN PRN Reason: Pain, Moderate (4-6) Pseudoephedrine/Acetam/Chlorphenir (Guaifenesin/Codeine 100-10mg Oral Liqd 5 Ml) 10 ml PO Q4H PRN PRN Reason: Cough Last Admin: 12/10/20 23:19 Dose: 10 ml Documented by: Exam - Constitutional Vitals: Temp Pulse Resp BP Pulse Ox 97.8 F 87 18 161/97 93 12/10/20 19:39 12/10/20 19:39 12/10/20 19:39 12/10/20 19:39 12/10/20 19:39 General appearance: Present: mild distress, well-nourished - EENT Eyes: Present: PERRL ENT: hearing intact, clear oral mucosa - Neck Neck: Present: supple, normal ROM - Respiratory Respiratory effort: normal Respiratory: bilateral: CTA - Cardiovascular Heart rate: 78 Rhythm: regular Heart Sounds: Present: S1 & S2. Absent: rub, click - Extremities Extremities: no ischemia, pulses intact, pulses symmetrical, No edema Peripheral Pulses: within normal limits - Abdominal General gastrointestinal: Present: soft, non-tender, non-distended, normal bowel sounds Female genitourinary: Present: normal - Rectal Rectal Exam: deferred - Integumentary Integumentary: Present: clear, warm, dry - Musculoskeletal Musculoskeletal: gait normal, strength equal bilaterally - Psychiatric Psychiatric: appropriate mood/affect, intact judgment & insight - Neurologic Neurologic: CNII-XII intact, moves all extremities - Allied Health Allied health notes reviewed: nursing, case management HEART Score - HEART Score History: Highly suspicious Age: 45-65 Risk factors: 1-2 risk factors Troponin: Troponin T 2.050 ng/mL (0.00-0.029) H* 12/10/20 18:11 Troponin: > 3x normal limit - Critical Actions Critical Actions: >7 pts:50-65% risk of adverse cardiac event. Early invasive measures Results - Labs CBC & Chem 7: 12/10/20 14:43 12/10/20 14:43 Labs: Laboratory Last Values WBC 5.9 K/mm3 (4.5-11.0) 12/10/20 14:43 RBC 4.45 M/mm3 (3.65-5.03) 12/10/20 14:43 Hgb 12.7 gm/dl (10.1-14.3) 12/10/20 14:43 Hct 38.3 % (30.3-42.9) 12/10/20 14:43 MCV 86 fl (79-97) 12/10/20 14:43 MCH 29 pg (28-32) 12/10/20 14:43 MCHC 33 % (30-34) 12/10/20 14:43 RDW 14.3 % (13.2-15.2) 12/10/20 14:43 Plt Count 329 K/mm3 (140-440) 12/10/20 14:43 Lymph % (Auto) [place] 12/10/20 14:43 [place] % (Auto) Sil[place] Soaker 12/10/20 14:43 Eos % (Auto) [place]aker 12/10/20 14:43 Baso % (Auto) [place]aker 12/10/20 14:43 Lymph # (Auto) [place] 12/10/20 14:43 [place] # (Auto) [place] Soaker 12/10/20 14:43 Eos # (Auto) [place] 12/10/20 14:43 Baso # (Auto) [place]aker 12/10/20 14:43 Add Manual Diff Complete 12/10/20 14:43 Total Counted 100 12/10/20 14:43 Seg Neutrophils % Sil[place] Soaker 12/10/20 14:43 Seg Neuts % (Manual) 48.0 % (40.0-70.0) 12/10/20 14:43 Lymphocytes % (Manual) 30.0 % (13.4-35.0) 12/10/20 14:43 Monocytes % (Manual) 4.0 % (0.0-7.3) 12/10/20 14:43 Eosinophils % (Manual) 16.0 % (0.0-4.3) H 12/10/20 14:43 Basophils % (Manual) 2.0 % (0.0-1.8) H 12/10/20 14:43 Nucleated RBC % Not Reportable 12/10/20 14:43 Seg Neutrophils # [place] Soaker 12/10/20 14:43 Seg Neutrophils # Man 2.8 K/mm3 (1.8-7.7) 12/10/20 14:43 Band Neutrophils # 0.0 K/mm3 12/10/20 14:43 Lymphocytes # (Manual) 1.8 K/mm3 (1.2-5.4) 12/10/20 14:43 Abs React Lymphs (Man) 0.0 K/mm3 12/10/20 14:43 Monocytes # (Manual) 0.2 K/mm3 (0.0-0.8) 12/10/20 14:43 Eosinophils # (Manual) 0.9 K/mm3 (0.0-0.4) H 12/10/20 14:43 Basophils # (Manual) 0.1 K/mm3 (0.0-0.1) 12/10/20 14:43 Metamyelocytes # 0.0 K/mm3 12/10/20 14:43 Myelocytes # 0.0 K/mm3 12/10/20 14:43 Promyelocytes # 0.0 K/mm3 12/10/20 14:43 Blast Cells # 0.0 K/mm3 12/10/20 14:43 WBC Morphology Not Reportable 12/10/20 14:43 Hypersegmented Neuts Not Reportable 12/10/20 14:43 Hyposegmented Neuts Not Reportable 12/10/20 14:43 Hypogranular Neuts Not Reportable 12/10/20 14:43 Smudge Cells Not Reportable 12/10/20 14:43 Toxic Granulation Not Reportable 12/10/20 14:43 Toxic Vacuolation Not Reportable 12/10/20 14:43 Dohle Bodies Not Reportable 12/10/20 14:43 Pelger-Huet Anomaly Not Reportable 12/10/20 14:43 Emelina Rods Not Reportable 12/10/20 14:43 Platelet Estimate Not Reportable 12/10/20 14:43 Clumped Platelets Not Reportable 12/10/20 14:43 Plt Clumps, EDTA Not Reportable 12/10/20 14:43 Large Platelets Not Reportable 12/10/20 14:43 Giant Platelets Not Reportable 12/10/20 14:43 Platelet Satelliting Not Reportable 12/10/20 14:43 Plt Morphology Comment Not Reportable 12/10/20 14:43 RBC Morphology Normal 12/10/20 14:43 Dimorphic RBCs Not Reportable 12/10/20 14:43 Polychromasia Not Reportable 12/10/20 14:43 Hypochromasia Not Reportable 12/10/20 14:43 Poikilocytosis Not Reportable 12/10/20 14:43 Anisocytosis Not Reportable 12/10/20 14:43 Microcytosis Not Reportable 12/10/20 14:43 Macrocytosis Not Reportable 12/10/20 14:43 Spherocytes Not Reportable 12/10/20 14:43 Pappenheimer Bodies Not Reportable 12/10/20 14:43 Sickle Cells Not Reportable 12/10/20 14:43 Target Cells Not Reportable 12/10/20 14:43 Tear Drop Cells Not Reportable 12/10/20 14:43 Ovalocytes Not Reportable 12/10/20 14:43 Helmet Cells Not Reportable 12/10/20 14:43 [place] Bodies Not Reportable 12/10/20 14:43 [place] Rings Not Reportable 12/10/20 14:43 [place] Angel Cells Not Reportable 12/10/20 14:43 Bite Cells Not Reportable 12/10/20 14:43 Crenated Cell Not Reportable 12/10/20 14:43 Elliptocytes Not Reportable 12/10/20 14:43 Acanthocytes (Spur) Not Reportable 12/10/20 14:43 Rouleaux Not Reportable 12/10/20 14:43 Hemoglobin C Crystals Not Reportable 12/10/20 14:43 Schistocytes Not Reportable 12/10/20 14:43 Malaria parasites Not Reportable 12/10/20 14:43 Owen Bodies Not Reportable 12/10/20 14:43 Hem Pathologist Commnt No 12/10/20 14:43 PT 12.8 Sec. (12.2-14.9) 12/10/20 14:43 INR 0.98 (0.87-1.13) 12/10/20 14:43 APTT 22.0 Sec. (24.2-36.6) L 12/10/20 14:43 Sodium 138 mmol/L (137-145) 12/10/20 14:43 Potassium 3.9 mmol/L (3.6-5.0) 12/10/20 14:43 Chloride 101.9 mmol/L (98-107) 12/10/20 14:43 Carbon Dioxide 28 mmol/L (22-30) 12/10/20 14:43 Anion Gap 12 mmol/L 12/10/20 14:43 BUN 9 mg/dL (7-17) 12/10/20 14:43 Creatinine 1.0 mg/dL (0.6-1.2) 12/10/20 14:43 Estimated GFR > 60 ml/min 12/10/20 14:43 BUN/Creatinine Ratio 9 % 12/10/20 14:43 Glucose 96 mg/dL (65-100) 12/10/20 14:43 Calcium 9.3 mg/dL (8.4-10.2) 12/10/20 14:43 Total Bilirubin 0.30 mg/dL (0.1-1.2) 12/10/20 14:43 AST 67 units/L (5-40) H 12/10/20 14:43 ALT 24 units/L (7-56) 12/10/20 14:43 Alkaline Phosphatase 50 units/L (35-129) 12/10/20 14:43 Troponin T 2.050 ng/mL (0.00-0.029) H* 12/10/20 18:11 NT-Pro-B Natriuret Pep 477.9 pg/mL (0-900) 12/10/20 14:43 Total Protein 8.6 g/dL (6.3-8.2) H 12/10/20 14:43 Albumin 3.2 g/dL (3.9-5) L 12/10/20 14:43 Albumin/Globulin Ratio 0.6 % 12/10/20 14:43 Triglycerides 130 mg/dL (2-149) 12/10/20 14:43 Cholesterol 142 mg/dL (50-199) 12/10/20 14:43 LDL Cholesterol Direct 82 mg/dL (50-130) 12/10/20 14:43 HDL Cholesterol 40 mg/dL (40-59) 12/10/20 14:43 Cholesterol/HDL Ratio 3.55 % 12/10/20 14:43 - Imaging and Cardiology EKG: report reviewed (Sinus rhythm heart rate of 92/min old anterior infarct) Chest x-ray: report reviewed (No acute findings) Assessment and Plan Advance Directives: Yes (Full code) - Patient Problems (1) NSTEMI (non-ST elevated myocardial infarction) Current Visit: Yes Status: Acute Plan to address problem: Patient started on heparin drip Cardiology consult Serial troponins and CK and CK-MB (2) HTN (hypertension) Current Visit: No Status: Chronic Qualifiers: Hypertension type: essential hypertension Qualified Code(s): I10 - Essential (primary) hypertension Plan to address problem: Continue antihypertensives and adjust medications as necessary (3) Acute exacerbation of CHF (congestive heart failure) Current Visit: Yes Status: Acute Qualifiers: Heart failure type: combined systolic and diastolic Qualified Code(s): I50.43 - Acute on chronic combined systolic (congestive) and diastolic (congestive) heart failure Plan to address problem: Ejection fraction unknown Lasix 40 mg every 24 Cardiology consult Daily weights Intake and output Daily (4) Hypothyroidism (acquired) Current Visit: Yes Status: Chronic Plan to address problem: Continue Synthroid and check TSH (5) Peripheral neuropathy Current Visit: Yes Status: Chronic Qualifiers: Peripheral neuropathy type: polyneuropathy, unspecified Qualified Code(s): G62.9 - Polyneuropathy, unspecified Plan to address problem: Continue gabapentin (6) Fibromyalgia Current Visit: Yes Status: Chronic Plan to address problem: Patient on fluoxetine (7) DVT prophylaxis Current Visit: Yes Status: Acute Plan to address problem: Patient on heparin drip and GI prophylaxis
[2020-12-10] MEDS ORDERED: MECLIZINE 12.5 MG TAB PO PRN (23:50)
[2020-12-10] MEDS ORDERED: ACETAMINOPHEN 325 MG TAB PO PRN (23:52)
[2020-12-10] MEDS ORDERED: METOCLOPRAMIDE 10 MG/2 ML INJ IV PRN (23:52)
[2020-12-10] MEDS ORDERED: ONDANSETRON 4 MG/2 ML INJ IV PRN (23:52)
[2020-12-10] MEDS ORDERED: HEPARIN 10,000 UNITS/10 ML VIAL IV ONE (23:57)
[2020-12-10] MEDS ORDERED: HEPARIN 10,000 UNITS/10 ML VIAL IV PRN (23:57)
[2020-12-11] MEDS: FUROSEMIDE 40 MG/4 ML INJ IV SCH ×2 (00:17→09:47)
[2020-12-11] MEDS: GABAPENTIN 300 MG CAP PO SCH ×3 (00:18→22:05)
[2020-12-11] MEDS: HEPARIN/ 0.45% NACL DRIP 25,000 UNIT/500 ML BAG IV SCH (00:39)
[2020-12-11 01:50] LABS: Hematocrit 35.6 % (30.3-42.9)
[2020-12-11 01:59] LABS: INR 1.16 (0.87-1.13)
[2020-12-11 02:09] LABS: Partial Thromboplastin Time 100.4 Sec. (24.2-36.6)
[2020-12-11 02:14] LABS: Creatine Kinase MB 15.4 ng/mL (0.0-4.0)
[2020-12-11] MEDS ORDERED: LEVOTHYROXINE 125 MCG TAB PO SCH (06:00)
[2020-12-11 07:14] LABS: Alanine Aminotransferase 21 units/L (7-56); Albumin 2.8 g/dL (3.9-5); BUN/Creatinine Ratio 12; Blood Urea Nitrogen 11 mg/dL (7-17); Calcium 8.6 mg/dL (8.4-10.2); Hematocrit 34.9 % (30.3-42.9); Hemoglobin 11.7 gm/dl (10.1-14.3); Hemolysis Index 2; Mean Corpuscular HGB Conc 34 % (30-34); Mean Corpuscular Volume 86 fl (79-97); Platelet Count 283 K/mm3 (140-440); Red Blood Count 4.07 M/mm3 (3.65-5.03); Red Cell Distribution Width 14.1 % (13.2-15.2)
--- NOTE | 2020-12-11 09:30 | Consultation ---
History of Present Illness Consult date: 12/11/20 Consult reason: elevated troponin History of present illness: This is a 60-year old F with a history of asthma who was sent to the emergency department from Urgent Care for shortness of breath, cough, and wheezing. Patient reports shortness of breath has progressed over 2 weeks unrelieved by nebulizer machine. Yesterday there was associated chest pain. Chest pain is poorly characterized and non-exertional. Patient denies palpitations, denies pre-syncope and there is no lower extremity edema. No prior cardiac history. An echo done in 2019 showed a well-preserved ejection fraction 60-65%. Chest x-ray reports no acute findings, no evidence of interstitial edema. Laboratory studies most significant for elevated troponin measurements and a TSH of 0.070. An ECG is sinus rhythm, no acute ST or T-wave changes. A cardiac consultation has been requested for abnormal troponin measurements. Past History Past Medical History: hypertension, other (Asthma, fibromyalgia, hypothyroidism) Medications and Allergies Allergies Allergy/AdvReac Type Severity Reaction Status Date / Time lisinopril Allergy Angioedema Verified 12/10/20 14:51 Home Medications Medication Instructions Recorded Confirmed Last Taken Type Amlodipine Besylate [Norvasc] 5 mg PO DAILY 12/10/20 12/10/20 Unknown History FLUoxetine [PROzac] 25 mg PO QDAY 12/10/20 12/10/20 Unknown History Gabapentin [Neurontin] 600 mg PO Q8HR 12/10/20 12/10/20 Unknown History Levothyroxine [Synthroid] 125 mcg PO QAM 12/10/20 12/10/20 Unknown History Meclizine [Antivert] 12.5 mg PO BID PRN 12/10/20 12/10/20 Unknown History Active Meds: Active Medications Acetaminophen (Acetaminophen 325 Mg Tab) 650 mg PO Q4H PRN PRN Reason: Pain MILD(1-3)/Fever >100.5/[facility] Amlodipine Besylate (Amlodipine 5 Mg Tab) 5 mg PO DAILY KARLIE Famotidine (Famotidine 20 Mg/2 Ml Inj) 20 mg IV BID KARLIE Fluoxetine HCl (Fluoxetine 20 Mg Cap) 20 mg PO QDAY KARLIE Furosemide (Furosemide 40 Mg/4 Ml Inj) 40 mg IV Q24HR KARLIE Last Admin: 12/11/20 00:17 Dose: 40 mg Documented by: Gabapentin (Gabapentin 300 Mg Cap) 600 mg PO Q8HR KARLIE Last Admin: 12/11/20 00:18 Dose: 600 mg Documented by: Heparin Sodium (Porcine) (Heparin 10,000 Units/10 Ml Vial) 2,900 unit 40 unit/kg (2900 unit) IV Q6H PRN PRN Reason: Anti-Xa Assay < 0.1 units/ml Heparin Sodium/Sodium Chloride (Heparin/ 0.45% Nacl-25,000 Unit/500 Ml) 25,000 unit in 500 mls @ 20 mls/hr IV TITRATE KARLIE; Protocol Last Admin: 12/11/20 00:39 Dose: 1,000 units/hr, 20 mls/hr Documented by: Potassium Chloride (Kcl 10meq/100ml) 10 meq in 100 mls @ 100 mls/hr IV Q1H [facility] Stop: 12/11/20 12:59 Levothyroxine Sodium (Levothyroxine 125 Mcg Tab) 125 mcg PO QAM@0600 [facility] Meclizine HCl (Meclizine 12.5 Mg Tab) 12.5 mg PO BID PRN PRN Reason: Vertigo Metoclopramide HCl (Metoclopramide 10 Mg/2 Ml Inj) 10 mg IV Q6H PRN PRN Reason: Nausea And Vomiting Morphine Sulfate (Morphine 2 Mg/1 Ml Inj) 2 mg IV Q4H PRN PRN Reason: Pain, Moderate (4-6) Ondansetron HCl (Ondansetron 4 Mg/2 Ml Inj) 4 mg IV Q8H PRN PRN Reason: Nausea And Vomiting Oxycodone/Acetaminophen (Oxycodone /Acetaminophen 5-325mg Tab) 1 tab PO Q6H PRN PRN Reason: Pain, Moderate (4-6) Pseudoephedrine/Acetam/Chlorphenir (Guaifenesin/Codeine 100-10mg Oral Liqd 5 Ml) 10 ml PO Q4H PRN PRN Reason: Cough Last Admin: 12/10/20 23:19 Dose: 10 ml Documented by: Sodium Chloride (Sodium Chloride 0.9% 10 Ml Flush Syringe) 10 ml IV BID [facility] Sodium Chloride (Sodium Chloride 0.9% 10 Ml Flush Syringe) 10 ml IV PRN PRN PRN Reason: LINE FLUSH Last Admin: 12/11/20 00:18 Dose: 10 ml Documented by: Review of Systems Cardiovascular: chest pain, shortness of breath, no palpitations, no r apid/irregular heart beat, no edema, no syncope, no lightheadedness Physical Examination Vital Signs Temp Pulse Resp BP Pulse Ox 98.5 F 91 H 22 152/99 96 12/10/20 14:18 12/10/20 14:18 12/10/20 14:18 12/10/20 14:18 12/10/20 14:18 General appearance: no acute distress HEENT: Positive: PERRL Neck: Positive: trachea midline Cardiac: Positive: Reg Rate and Rhythm Lungs: Positive: Normal Breath Sounds Neuro: Positive: Grossly Intact Abdomen: Positive: Soft Extremities: Absent: edema Results 12/11/20 04:00 12/11/20 04:00 Cardiac Enzymes 12/10/20 12/11/20 12/11/20 Range/Units 14:43 01:14 04:00 AST 67 H 57 H (5-40) units/L CK-MB (CK-2) 15.4 H (0.0-4.0) ng/mL Coagulation 12/10/20 12/11/20 Range/Units 14:43 01:14 PT 12.8 14.6 (12.2-14.9) Sec. INR 0.98 1.16 H (0.87-1.13) APTT 22.0 L 100.4 H* (24.2-36.6) Sec. 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
[2020-12-11] MEDS: POTASSIUM CHLORIDE 10 MEQ 10 MEQ/100 ML BAG IV SCH ×4 (09:36→13:25)
[2020-12-11] MEDS: amLODIPine 5 MG TAB PO SCH (09:46)
[2020-12-11] MEDS: FAMOTIDINE 20 MG/2 ML INJ IV SCH ×2 (09:47→22:07)
[2020-12-11] MEDS: FLUoxetine 20 MG CAP PO SCH (09:47)
--- NOTE | 2020-12-11 10:25 | Progress Note ---
Assessment and Plan Assessment and plan: #Asthma exacerbation Solu-Medrol 40 every 8hrs Bronchodilators Follow-up with pulmonology in the office after discharge #Dyspnea on exertion Likely related to asthma exacerbation Patient denies any history of congestive heart failure. Her chest x-ray is clear Echocardiogram ordered as she has ONEIL and ?orthopnea #Elevated troponin Patient has left-sided chest pain No known history of coronary artery disease Cardiology consulted Plan for stress test as per cardiology #Hypertension BP medications as needed #Hypothyroidism On Synthroid but TSH is elevated Hold Synthroid for now. Check free T4 #Fibromyalgia Follow-up with PCP #Peripheral neuropathy Continue gabapentin #DVT prophylaxis-Heparin History Interval history: 60-year-old female, history of hypertension, fibromyalgia, hypothyroidism, asthma, presents to ED with difficulty breathing. Patient reports she has been having some shortness of breath for the last 3 weeks. She reports dyspnea on exertion and also orthopnea. She denies any lower extremity swelling. Patient reports pain to bilateral lower extremities secondary to neuropathy and her fibromyalgia. Patient states she had her first appointment with a primary care provider today. Patient states that the office she started having some mild left-sided chest pain and she was advised to come to the emergency room. She denies any chest pain at this time. Patient also reports that her history of asthma. States over the last few weeks she thought that her difficulty breathing may be secondary to her asthma however she states reports no improvement with albuterol. In the ER, patient was noted to have elevated troponin was admitted for further evaluation. Cardiology was consulted. 12/11. Patient seen and examined at bedside this morning. Awaiting cardiology evaluation. Echocardiogram ordered. She has wheezes bilaterally. Her chest xray is clear. She has a history of asthma and usually uses inhalers. Started on Solu-Medrol 40 every 8 this AM. Hospitalist Physical - Physical exam Narrative exam: VITAL SIGNS: Reviewed. GENERAL: Awake HEAD: No signs of head trauma. EYES: Pupils are equal. Extraocular motions intact. MOUTH: Oropharynx is normal. NECK: No adenopathy, no JVD. CHEST: Bilateral wheezes CARDIAC: normal S1 and S2, without murmurs, gallops, or rubs. ABDOMEN: Soft, non tender and non distended. No rebound or guarding, and no masses palpated. Bowel Sounds normal. MUSCULOSKELETAL: No edema NEUROLOGIC EXAM: Alert and oriented x3. No focal neurologic deficits SKIN: No obvious lesions - Constitutional Vitals: Temp Pulse Resp BP Pulse Ox 97.9 F 94 H 16 163/94 95 12/11/20 07:37 12/11/20 09:46 12/11/20 07:37 12/11/20 09:46 12/11/20 07:37 HEART Score - HEART Score Age: 45-65 Risk factors: 1-2 risk factors Troponin: Troponin T 1.960 ng/mL (0.00-0.029) H* 12/11/20 01:14 Troponin: > 3x normal limit - Critical Actions Critical Actions: >7 pts:50-65% risk of adverse cardiac event. Early invasive measures Results - Labs CBC & Chem 7: 12/11/20 04:00 12/11/20 04:00 Labs: Laboratory Last Values WBC 6.6 K/mm3 (4.5-11.0) 12/11/20 04:00 RBC 4.07 M/mm3 (3.65-5.03) 12/11/20 04:00 Hgb 11.7 gm/dl (10.1-14.3) 12/11/20 04:00 Hct 34.9 % (30.3-42.9) 12/11/20 04:00 MCV 86 fl (79-97) 12/11/20 04:00 MCH 29 pg (28-32) 12/11/20 04:00 MCHC 34 % (30-34) 12/11/20 04:00 RDW 14.1 % (13.2-15.2) 12/11/20 04:00 Plt Count 283 K/mm3 (140-440) 12/11/20 04:00 Lymph % (Auto) Cassandra Consultant 12/10/20 14:43 [place] % (Auto) Cassandra Consultant 12/10/20 14:43 Eos % (Auto) Cassandra Consultant 12/11/20 04:00 Baso % (Auto) Cassandra Consultant 12/10/20 14:43 Lymph # (Auto) Cassandra Consultant 12/10/20 14:43 [place] # (Auto) Cassandra Consultant 12/10/20 14:43 Eos # (Auto) Cassandra Consultant 12/10/20 14:43 Baso # (Auto) Cassandra Consultant 12/10/20 14:43 Add Manual Diff Complete 12/10/20 14:43 Total Counted 100 12/10/20 14:43 Seg Neutrophils % Cassandra Consultant 12/10/20 14:43 Seg Neuts % (Manual) 48.0 % (40.0-70.0) 12/10/20 14:43 Lymphocytes % (Manual) 30.0 % (13.4-35.0) 12/10/20 14:43 Monocytes % (Manual) 4.0 % (0.0-7.3) 12/10/20 14:43 Eosinophils % (Manual) 16.0 % (0.0-4.3) H 12/10/20 14:43 Basophils % (Manual) 2.0 % (0.0-1.8) H 12/10/20 14:43 Nucleated RBC % Not Reportable 12/10/20 14:43 Seg Neutrophils # Cassandra Consultant 12/10/20 14:43 Seg Neutrophils # Man 2.8 K/mm3 (1.8-7.7) 12/10/20 14:43 Band Neutrophils # 0.0 K/mm3 12/10/20 14:43 Lymphocytes # (Manual) 1.8 K/mm3 (1.2-5.4) 12/10/20 14:43 Abs React Lymphs (Man) 0.0 K/mm3 12/10/20 14:43 Monocytes # (Manual) 0.2 K/mm3 (0.0-0.8) 12/10/20 14:43 Eosinophils # (Manual) 0.9 K/mm3 (0.0-0.4) H 12/10/20 14:43 Basophils # (Manual) 0.1 K/mm3 (0.0-0.1) 12/10/20 14:43 Metamyelocytes # 0.0 K/mm3 12/10/20 14:43 Myelocytes # 0.0 K/mm3 12/10/20 14:43 Promyelocytes # 0.0 K/mm3 12/10/20 14:43 Blast Cells # 0.0 K/mm3 12/10/20 14:43 WBC Morphology Not Reportable 12/10/20 14:43 Hypersegmented Neuts Not Reportable 12/10/20 14:43 Hyposegmented Neuts Not Reportable 12/10/20 14:43 Hypogranular Neuts Not Reportable 12/10/20 14:43 Smudge Cells Not Reportable 12/10/20 14:43 Toxic Granulation Not Reportable 12/10/20 14:43 Toxic Vacuolation Not Reportable 12/10/20 14:43 Dohle Bodies Not Reportable 12/10/20 14:43 Pelger-Huet Anomaly Not Reportable 12/10/20 14:43 Emelina Rods Not Reportable 12/10/20 14:43 Platelet Estimate Not Reportable 12/10/20 14:43 Clumped Platelets Not Reportable 12/10/20 14:43 Plt Clumps, EDTA Not Reportable 12/10/20 14:43 Large Platelets Not Reportable 12/10/20 14:43 Giant Platelets Not Reportable 12/10/20 14:43 Platelet Satelliting Not Reportable 12/10/20 14:43 Plt Morphology Comment Not Reportable 12/10/20 14:43 RBC Morphology Normal 12/10/20 14:43 Dimorphic RBCs Not Reportable 12/10/20 14:43 Polychromasia Not Reportable 12/10/20 14:43 Hypochromasia Not Reportable 12/10/20 14:43 Poikilocytosis Not Reportable 12/10/20 14:43 Anisocytosis Not Reportable 12/10/20 14:43 Microcytosis Not Reportable 12/10/20 14:43 Macrocytosis Not Reportable 12/10/20 14:43 Spherocytes Not Reportable 12/10/20 14:43 Pappenheimer Bodies Not Reportable 12/10/20 14:43 Sickle Cells Not Reportable 12/10/20 14:43 Target Cells Not Reportable 12/10/20 14:43 Tear Drop Cells Not Reportable 12/10/20 14:43 Ovalocytes Not Reportable 12/10/20 14:43 Helmet Cells Not Reportable 12/10/20 14:43 [place] Bodies Not Reportable 12/10/20 14:43 [place] Rings Not Reportable 12/10/20 14:43 [place] Cells Not Reportable 12/10/20 14:43 Bite Cells Not Reportable 12/10/20 14:43 Crenated Cell Not Reportable 12/10/20 14:43 Elliptocytes Not Reportable 12/10/20 14:43 Acanthocytes (Spur) Not Reportable 12/10/20 14:43 Rouleaux Not Reportable 12/10/20 14:43 Hemoglobin C Crystals Not Reportable 12/10/20 14:43 Schistocytes Not Reportable 12/10/20 14:43 Malaria parasites Not Reportable 12/10/20 14:43 Owen Bodies Not Reportable 12/10/20 14:43 Hem Pathologist Commnt No 12/10/20 14:43 PT 14.6 Sec. (12.2-14.9) 12/11/20 01:14 INR 1.16 (0.87-1.13) H 12/11/20 01:14 APTT 100.4 Sec. (24.2-36.6) H* 12/11/20 01:14 Sodium 136 mmol/L (137-145) L 12/11/20 04:00 Potassium 3.5 mmol/L (3.6-5.0) L 12/11/20 04:00 Chloride 99.5 mmol/L (98-107) 12/11/20 04:00 Carbon Dioxide 29 mmol/L (22-30) 12/11/20 04:00 Anion Gap 11 mmol/L 12/11/20 04:00 BUN 11 mg/dL (7-17) 12/11/20 04:00 Creatinine 0.9 mg/dL (0.6-1.2) 12/11/20 04:00 Estimated GFR > 60 ml/min 12/11/20 04:00 BUN/Creatinine Ratio 12 % 12/11/20 04:00 Glucose 86 mg/dL (65-100) 12/11/20 04:00 Hemoglobin A1c 5.5 % (4-6) 12/11/20 04:00 Calcium 8.6 mg/dL (8.4-10.2) 12/11/20 04:00 Total Bilirubin 0.40 mg/dL (0.1-1.2) 12/11/20 04:00 AST 57 units/L (5-40) H 12/11/20 04:00 ALT 21 units/L (7-56) 12/11/20 04:00 Alkaline Phosphatase 46 units/L (35-129) 12/11/20 04:00 Total Creatine Kinase 563 units/L (30-135) H 12/11/20 01:14 CK-MB (CK-2) 15.4 ng/mL (0.0-4.0) H 12/11/20 01:14 CK-MB (CK-2) Rel Index 2.7 (0-4) 12/11/20 01:14 Troponin T 1.960 ng/mL (0.00-0.029) H* 12/11/20 01:14 NT-Pro-B Natriuret Pep 477.9 pg/mL (0-900) 12/10/20 14:43 Total Protein 7.8 g/dL (6.3-8.2) 12/11/20 04:00 Albumin 2.8 g/dL (3.9-5) L 12/11/20 04:00 Albumin/Globulin Ratio 0.6 % 12/11/20 04:00 Triglycerides 130 mg/dL (2-149) 12/10/20 14:43 Cholesterol 142 mg/dL (50-199) 12/10/20 14:43 LDL Cholesterol Direct 82 mg/dL (50-130) 12/10/20 14:43 HDL Cholesterol 40 mg/dL (40-59) 12/10/20 14:43 Cholesterol/HDL Ratio 3.55 % 12/10/20 14:43 TSH 0.070 mlU/mL (0.270-4.200) L 12/11/20 04:00 Active Medications - Current Medications Current Medications: Generic Name Dose Route Start Last Admin Trade Name Freq PRN Reason Stop Dose Admin Acetaminophen 650 mg 12/10/20 23:52 Acetaminophen 325 Mg Tab PO Q4H PRN Pain MILD(1-3)/Fever >100.5/PENN Amlodipine Besylate 5 mg 12/11/20 10:00 12/11/20 09:46 Amlodipine 5 Mg Tab PO 5 mg DAILY KARLIE Administration Famotidine 20 mg 12/11/20 10:00 12/11/20 09:47 Famotidine 20 Mg/2 Ml Inj IV 20 mg BID KARLIE Administration Fluoxetine HCl 20 mg 12/11/20 10:00 12/11/20 09:47 Fluoxetine 20 Mg Cap PO 20 mg QDAY KARLIE Administration Furosemide 40 mg 12/10/20 23:45 12/11/20 09:47 Furosemide 40 Mg/4 Ml Inj IV 40 mg Q24HR KARLIE Administration Gabapentin 600 mg 12/10/20 23:45 12/11/20 09:51 Gabapentin 300 Mg Cap PO 600 mg Q8HR KARLIE Administration Heparin Sodium (Porcine) 2,900 unit 12/10/20 23:57 Heparin 10,000 Units/10 Ml Vial 40 unit/kg (2900 unit) IV Q6H PRN Anti-Xa Assay < 0.1 units/ml Heparin Sodium/Sodium Chloride 25,000 unit in 500 mls @ 20 mls/hr 12/10/20 23:45 12/11/20 00:39 Heparin/ 0.45% Nacl-25,000 Unit/500 Ml IV 1,000 units/hr TITRATE KARLIE 20 mls/hr Administration Protocol 1,000 UNITS/HR Potassium Chloride 10 meq in 100 mls @ 100 mls/hr 12/11/20 09:00 12/11/20 09:36 Kcl 10meq/100ml IV 12/11/20 12:59 100 mls/hr Q1H KARLIE Administration Methylprednisolone Sodium 100 mls @ 200 mls/hr 12/11/20 10:21 Succinate 40 mg/ Sodium IV Chloride Q8HR KARLIE Levothyroxine Sodium 125 mcg 12/11/20 06:00 12/11/20 09:52 Levothyroxine 125 Mcg Tab PO 125 mcg QAM@0600 KARLIE Administration Meclizine HCl 12.5 mg 12/10/20 23:50 Meclizine 12.5 Mg Tab PO BID PRN Vertigo Metoclopramide HCl 10 mg 12/10/20 23:52 Metoclopramide 10 Mg/2 Ml Inj IV Q6H PRN Nausea And Vomiting Morphine Sulfate 2 mg 12/10/20 22:53 Morphine 2 Mg/1 Ml Inj IV Q4H PRN Pain, Moderate (4-6) Ondansetron HCl 4 mg 12/10/20 23:52 Ondansetron 4 Mg/2 Ml Inj IV Q8H PRN Nausea And Vomiting Oxycodone/Acetaminophen 1 tab 12/10/20 22:53 Oxycodone /Acetaminophen 5-325mg Tab PO Q6H PRN Pain, Moderate (4-6) Pseudoephedrine/Acetam/Chlorphenir 10 ml 12/10/20 22:53 12/10/20 23:19 Guaifenesin/Codeine 100-10mg Oral Liqd 5 Ml PO 10 ml Q4H PRN Administration Cough Sodium Chloride 10 ml 12/11/20 10:00 12/11/20 09:48 Sodium Chloride 0.9% 10 Ml Flush Syringe IV 10 ml BID KARLIE Administration Sodium Chloride 10 ml 12/10/20 23:52 12/11/20 00:18 Sodium Chloride 0.9% 10 Ml Flush Syringe IV 10 ml PRN PRN Administration LINE FLUSH
[2020-12-11 11:08] LABS: Creatine Kinase MB 12.5 ng/mL (0.0-4.0)
[2020-12-11 11:09] LABS: Creatine Kinase MB 12.5 ng/mL (0.0-4.0)
--- NOTE | 2020-12-11 11:20 | Electrocardiograph Report ---
[facility] Test Date: 2020-12-10 Test Time: 14:25:06 Pat Name: RAIN FORRESTER Department: Room: A459 1 Gender: F Board Stacker: : 1960 Requested By: LEONID ZHANG Order Number: [id number] Reading MD: Caden Vincent Measurements Intervals [place] Rate: 92 P: 66 CO: 120 QRS: 52 QRSD: 82 T: 2 QT: 369 QTc: 457 Interpretive Statements Sinus rhythm Probable left atrial enlargement Anterior infarct, old No previous ECG available for comparison Electronically Signed On 12-11-2020 8:20:10 PDT by Caden Vincent
--- NOTE | 2020-12-11 11:25 | Electrocardiograph Report ---
[facility] Test Date: 2020-12-11 Test Time: 09:17:41 Pat Name: RAIN FORRESTER Department: Room: A459 1 Gender: F Institutional Asset Manager: DYAN : 1960 Requested By: LEONID ZHANG Order Number: [id number] Reading MD: Caden Vincent Measurements Intervals [place] Rate: 89 P: 73 IA: 139 QRS: 25 QRSD: 75 T: -5 QT: 372 QTc: 454 Interpretive Statements Sinus rhythm Compared to ECG 12/10/2020 14:25:06 Myocardial infarct finding no longer present Electronically Signed On 12-11-2020 8:25:27 PDT by Caden Vincent
[2020-12-11] MEDS ORDERED: ALBUTEROL 2.5 MG/3 ML NEBU IH PRN (12:00)
[2020-12-11] MEDS: methylPREDNISolone Sod Suc 40 MG in SODIUM CHLORIDE 0.9% 100 ML IV SCH ×2 (12:19→17:53)
[2020-12-11] MEDS: oxyCODONE /ACETAMINOPHEN 5-325MG TAB PO PRN (14:25)
[2020-12-11 17:46] LABS: Total Cells Counted 100
[2020-12-11 17:47] LABS: Ovalocytes Rare; Tear Drop Cells Rare
[2020-12-11 17:50] LABS: Platelet Estimate Consistent w Auto
[2020-12-11] MEDS: MORPHINE 2 MG/1 ML INJ IV PRN (19:24)
[2020-12-11] MEDS: guaiFENesin/CODEINE 100-10MG ORAL LIQD 5 ML PO PRN (19:29)
[2020-12-12] MEDS: methylPREDNISolone Sod Suc 40 MG in SODIUM CHLORIDE 0.9% 100 ML IV SCH ×2 (00:20→06:56)
[2020-12-12] MEDS: HEPARIN/ 0.45% NACL DRIP 25,000 UNIT/500 ML BAG IV SCH (05:31)
--- NOTE | 2020-12-12 09:27 | Progress Note ---
Assessment and Plan Elevated troponin Asthma exacerbation Chronic hypertension Hyperthyroidism Recommendations: Pulmonary consultation for management of asthma exacerbation. Further cardiac ischemic work-up depend on clinical course and will follow optimal resolution of asthma exacerbation. Subjective Date of service: 12/12/20 Interval history: Patient appears well. Denies chest pain. Reports shortness of breath is better and less cough. Objective Vital Signs Temp Pulse Resp BP BP Pulse Ox 12/12/20 07:41 98.4 F 101 H 18 137/93 94 12/12/20 03:32 97.8 F 83 16 134/86 95 12/11/20 23:15 98.2 F 84 14 145/89 96 12/11/20 20:32 97 H 12/11/20 19:13 97.6 F 97 H 14 162/99 95 12/11/20 16:01 98.0 F 90 16 137/92 96 12/11/20 11:45 97.8 F 111 H 16 165/99 92 12/11/20 11:00 99 H 12/11/20 09:46 94 H 163/94 - Physical Examination General: No Apparent Distress HEENT: Positive: PERRL Neck: Positive: trachea midline Cardiac: Positive: Reg Rate and Rhythm Lungs: Positive: Decreased Breath Sounds, Wheezes Neuro: Positive: Grossly Intact Abdomen: Positive: Soft Extremities: Absent: edema - Labs and Meds Cardiac Enzymes 12/11/20 12/11/20 Range/Units 10:25 10:25 CK-MB (CK-2) 12.5 H 12.5 H (0.0-4.0) ng/mL
[2020-12-12] MEDS: amLODIPine 5 MG TAB PO SCH (09:31)
[2020-12-12] MEDS: FLUoxetine 20 MG CAP PO SCH (09:31)
[2020-12-12] MEDS: FAMOTIDINE 20 MG/2 ML INJ IV SCH (09:31)
[2020-12-12] MEDS: MORPHINE 2 MG/1 ML INJ IV PRN ×2 (09:32→18:07)
[2020-12-12 10:16] LABS: Hematocrit 36.4 % (30.3-42.9); Hemoglobin 12.3 gm/dl (10.1-14.3)
[2020-12-12] MEDS ORDERED: ALBUTEROL 2.5 MG/3 ML NEBU IH SCH (12:00)
--- NOTE | 2020-12-12 12:07 | Progress Note ---
Assessment and Plan Assessment and plan: #Asthma exacerbation Solu-Medrol 40 every 8hrs Bronchodilators Azithromycin Follow-up with pulmonology in the office after discharge #Dyspnea on exertion Likely related to asthma exacerbation Patient denies any history of congestive heart failure. Her chest x-ray is clear Echocardiogram ordered as she has ONEIL and ?orthopnea #Elevated troponin Patient has left-sided chest pain No known history of coronary artery disease Cardiology recs appreciated Plan for stress test as per cardiology on Tuesday #Hypertension BP medications as needed #Hypothyroidism On Synthroid but TSH is elevated Hold Synthroid for now. Check free T4 #Fibromyalgia Follow-up with PCP #Peripheral neuropathy Continue gabapentin #DVT prophylaxis-Heparin History Interval history: 60-year-old female, history of hypertension, fibromyalgia, hypothyroidism, asthma, presents to ED with difficulty breathing. Patient reports she has been having some shortness of breath for the last 3 weeks. She reports dyspnea on exertion and also orthopnea. She denies any lower extremity swelling. Patient reports pain to bilateral lower extremities secondary to neuropathy and her fibromyalgia. Patient states she had her first appointment with a primary care provider today. Patient states that the office she started having some mild left-sided chest pain and she was advised to come to the emergency room. She denies any chest pain at this time. Patient also reports that her history of asthma. States over the last few weeks she thought that her difficulty breathing may be secondary to her asthma however she states reports no improvement with albuterol. In the ER, patient was noted to have elevated troponin was admitted for further evaluation. Cardiology was consulted. 12/11. Patient seen and examined at bedside this morning. Awaiting cardiology evaluation. Echocardiogram ordered. She has wheezes bilaterally. Her chest xray is clear. She has a history of asthma and usually uses inhalers. Started on Solu-Medrol 40 every 8 this AM. On bronchodilators 12/12. Feels better. Still wheezing. Consulted pulmonology this AM. Per cardiology team, she will have stress test on Tuesday. Will make NPO after MN on tuesday. Hospitalist Physical - Constitutional Vitals: Temp Pulse Resp BP Pulse Ox 98.4 F 101 H 18 137/93 94 12/12/20 07:41 12/12/20 09:31 12/12/20 07:41 12/12/20 09:31 12/12/20 07:41 General appearance: Present: no acute distress HEART Score - HEART Score Age: 45-65 Risk factors: 1-2 risk factors Troponin: Troponin T 1.690 ng/mL (0.00-0.029) H* 12/11/20 10:25 Troponin: > 3x normal limit - Critical Actions Critical Actions: >7 pts:50-65% risk of adverse cardiac event. Early invasive measures Results - Labs CBC & Chem 7: 12/12/20 08:51 12/11/20 04:00 Labs: Laboratory Last Values WBC 6.6 K/mm3 (4.5-11.0) 12/11/20 04:00 RBC 4.07 M/mm3 (3.65-5.03) 12/11/20 04:00 Hgb 12.3 gm/dl (10.1-14.3) 12/12/20 08:51 Hct 36.4 % (30.3-42.9) 12/12/20 08:51 MCV 86 fl (79-97) 12/11/20 04:00 MCH 29 pg (28-32) 12/11/20 04:00 MCHC 34 % (30-34) 12/11/20 04:00 RDW 14.1 % (13.2-15.2) 12/11/20 04:00 Plt Count 266 K/mm3 (140-440) 12/12/20 08:51 Lymph % (Auto) [place] 12/10/20 14:43 [place] % (Auto) [place] 12/10/20 14:43 Eos % (Auto) [place] 12/11/20 04:00 Baso % (Auto) [place] 12/10/20 14:43 Lymph # (Auto) [place] 12/10/20 14:43 [place] # (Auto) [place] 12/10/20 14:43 Eos # (Auto) [place] 12/10/20 14:43 Baso # (Auto) [place] 12/10/20 14:43 Add Manual Diff Complete 12/11/20 04:00 Total Counted 100 12/11/20 04:00 Seg Neutrophils % [place] 12/10/20 14:43 Seg Neuts % (Manual) 50.0 % (40.0-70.0) 12/11/20 04:00 Lymphocytes % (Manual) 26.0 % (13.4-35.0) 12/11/20 04:00 Monocytes % (Manual) 10.0 % (0.0-7.3) H 12/11/20 04:00 Eosinophils % (Manual) 13.0 % (0.0-4.3) H 12/11/20 04:00 Basophils % (Manual) 2.0 % (0.0-1.8) H 12/10/20 14:43 Metamyelocytes % 1.0 % 12/11/20 04:00 Nucleated RBC % Not Reportable 12/11/20 04:00 Seg Neutrophils # [place] 12/10/20 14:43 Seg Neutrophils # Man 3.3 K/mm3 (1.8-7.7) 12/11/20 04:00 Band Neutrophils # 0.0 K/mm3 12/11/20 04:00 Lymphocytes # (Manual) 1.7 K/mm3 (1.2-5.4) 12/11/20 04:00 Abs React Lymphs (Man) 0.0 K/mm3 12/11/20 04:00 Monocytes # (Manual) 0.7 K/mm3 (0.0-0.8) 12/11/20 04:00 Eosinophils # (Manual) 0.9 K/mm3 (0.0-0.4) H 12/11/20 04:00 Basophils # (Manual) 0.0 K/mm3 (0.0-0.1) 12/11/20 04:00 Metamyelocytes # 0.1 K/mm3 12/11/20 04:00 Myelocytes # 0.0 K/mm3 12/11/20 04:00 Promyelocytes # 0.0 K/mm3 12/11/20 04:00 Blast Cells # 0.0 K/mm3 12/11/20 04:00 WBC Morphology Not Reportable 12/11/20 04:00 Hypersegmented Neuts Not Reportable 12/11/20 04:00 Hyposegmented Neuts Not Reportable 12/11/20 04:00 Hypogranular Neuts Not Reportable 12/11/20 04:00 Smudge Cells Not Reportable 12/11/20 04:00 Toxic Granulation Not Reportable 12/11/20 04:00 Toxic Vacuolation Not Reportable 12/11/20 04:00 Dohle Bodies Not Reportable 12/11/20 04:00 Pelger-Huet Anomaly Not Reportable 12/11/20 04:00 Emelina Rods Not Reportable 12/11/20 04:00 Platelet Estimate Consistent w auto 12/11/20 04:00 Clumped Platelets Not Reportable 12/11/20 04:00 Plt Clumps, EDTA Not Reportable 12/11/20 04:00 Large Platelets Not Reportable 12/11/20 04:00 Giant Platelets Not Reportable 12/11/20 04:00 Platelet Satelliting Not Reportable 12/11/20 04:00 Plt Morphology Comment Not Reportable 12/11/20 04:00 RBC Morphology Not Reportable 12/11/20 04:00 Dimorphic RBCs Not Reportable 12/11/20 04:00 Polychromasia Not Reportable 12/11/20 04:00 Hypochromasia Not Reportable 12/11/20 04:00 Poikilocytosis Not Reportable 12/11/20 04:00 Anisocytosis Not Reportable 12/11/20 04:00 Microcytosis Not Reportable 12/11/20 04:00 Macrocytosis Not Reportable 12/11/20 04:00 Spherocytes Not Reportable 12/11/20 04:00 Pappenheimer Bodies Not Reportable 12/11/20 04:00 Sickle Cells Not Reportable 12/11/20 04:00 Target Cells Not Reportable 12/11/20 04:00 Tear Drop Cells Rare 12/11/20 04:00 Ovalocytes Rare 12/11/20 04:00 Helmet Cells Not Reportable 12/11/20 04:00 [place] Bodies Not Reportable 12/11/20 04:00 [place] Rings Not Reportable 12/11/20 04:00 [place] Cells Not Reportable 12/11/20 04:00 Bite Cells Not Reportable 12/11/20 04:00 Crenated Cell Not Reportable 12/11/20 04:00 Elliptocytes Not Reportable 12/11/20 04:00 Acanthocytes (Spur) Not Reportable 12/11/20 04:00 Rouleaux Not Reportable 12/11/20 04:00 Hemoglobin C Crystals Not Reportable 12/11/20 04:00 Schistocytes Not Reportable 12/11/20 04:00 Malaria parasites Not Reportable 12/11/20 04:00 Owen Bodies Not Reportable 12/11/20 04:00 Hem Pathologist Commnt No 12/11/20 04:00 PT 14.6 Sec. (12.2-14.9) 12/11/20 01:14 INR 1.16 (0.87-1.13) H 12/11/20 01:14 APTT 100.4 Sec. (24.2-36.6) H* 12/11/20 01:14 Heparin Anti-Xa Level 0.29 U.I./ml (0.3-0.7) L 12/12/20 08:51 Sodium 136 mmol/L (137-145) L 12/11/20 04:00 Potassium 3.5 mmol/L (3.6-5.0) L 12/11/20 04:00 Chloride 99.5 mmol/L (98-107) 12/11/20 04:00 Carbon Dioxide 29 mmol/L (22-30) 12/11/20 04:00 Anion Gap 11 mmol/L 12/11/20 04:00 BUN 11 mg/dL (7-17) 12/11/20 04:00 Creatinine 0.9 mg/dL (0.6-1.2) 12/11/20 04:00 Estimated GFR > 60 ml/min 12/11/20 04:00 BUN/Creatinine Ratio 12 % 12/11/20 04:00 Glucose 86 mg/dL (65-100) 12/11/20 04:00 Hemoglobin A1c 5.5 % (4-6) 12/11/20 04:00 Calcium 8.6 mg/dL (8.4-10.2) 12/11/20 04:00 Total Bilirubin 0.40 mg/dL (0.1-1.2) 12/11/20 04:00 AST 57 units/L (5-40) H 12/11/20 04:00 ALT 21 units/L (7-56) 12/11/20 04:00 Alkaline Phosphatase 46 units/L (35-129) 12/11/20 04:00 Total Creatine Kinase 475 units/L (30-135) H 12/11/20 10:25 Total Creatine Kinase 487 units/L (30-135) H 12/11/20 10:25 CK-MB (CK-2) 12.5 ng/mL (0.0-4.0) H 12/11/20 10:25 CK-MB (CK-2) 12.5 ng/mL (0.0-4.0) H 12/11/20 10:25 CK-MB (CK-2) Rel Index 2.5 (0-4) 12/11/20 10:25 CK-MB (CK-2) Rel Index 2.6 (0-4) 12/11/20 10:25 Troponin T 1.690 ng/mL (0.00-0.029) H* 12/11/20 10:25 NT-Pro-B Natriuret Pep 477.9 pg/mL (0-900) 12/10/20 14:43 Total Protein 7.8 g/dL (6.3-8.2) 12/11/20 04:00 Albumin 2.8 g/dL (3.9-5) L 12/11/20 04:00 Albumin/Globulin Ratio 0.6 % 12/11/20 04:00 Triglycerides 130 mg/dL (2-149) 12/10/20 14:43 Cholesterol 142 mg/dL (50-199) 12/10/20 14:43 LDL Cholesterol Direct 82 mg/dL (50-130) 12/10/20 14:43 HDL Cholesterol 40 mg/dL (40-59) 12/10/20 14:43 Cholesterol/HDL Ratio 3.55 % 12/10/20 14:43 TSH 0.070 mlU/mL (0.270-4.200) L 12/11/20 04:00 Miranda/IV: Voiding Method Toilet Active Medications - Current Medications Current Medications: Generic Name Dose Route Start Last Admin Trade Name Freq PRN Reason Stop Dose Admin Acetaminophen 650 mg 12/10/20 23:52 Acetaminophen 325 Mg Tab PO Q4H PRN Pain MILD(1-3)/Fever >100.5/PENN Amlodipine Besylate 5 mg 12/11/20 10:00 12/12/20 09:31 Amlodipine 5 Mg Tab PO 5 mg DAILY KARLIE Administration Arformoterol Tartrate 15 mcg 12/12/20 12:00 Arformoterol 15 Mcg/2 Ml Nebu IH Q12HRT KARLIE Azithromycin 250 mg 12/13/20 10:00 Azithromycin 250 Mg Tab PO 12/17/20 10:01 QDAY KARLIE Protocol Budesonide 0.5 mg 12/12/20 13:00 Budesonide 0.5 Mg/2 Ml Nebu IH Q12HRT KARLIE Famotidine 20 mg 12/12/20 22:00 Famotidine 20 Mg Tab PO BID KARLIE Fluoxetine HCl 20 mg 12/11/20 10:00 12/12/20 09:31 Fluoxetine 20 Mg Cap PO 20 mg QDAY KARLIE Administration Gabapentin 600 mg 12/11/20 22:00 12/11/20 22:05 Gabapentin 300 Mg Cap PO 600 mg QHS KARLIE Administration Meclizine HCl 12.5 mg 12/10/20 23:50 Meclizine 12.5 Mg Tab PO BID PRN Vertigo Methylprednisolone Sodium Succinate 60 mg 12/12/20 13:00 Methylprednisolone Sod Succinate 125 Mg/2 Ml Inj IV Q6H [facility] Metoclopramide HCl 10 mg 12/10/20 23:52 Metoclopramide 10 Mg/2 Ml Inj IV Q6H PRN Nausea And Vomiting Morphine Sulfate 2 mg 12/10/20 22:53 12/12/20 09:32 Morphine 2 Mg/1 Ml Inj IV 2 mg Q4H PRN Administration Pain, Moderate (4-6) Ondansetron HCl 4 mg 12/10/20 23:52 Ondansetron 4 Mg/2 Ml Inj IV Q8H PRN Nausea And Vomiting Oxycodone/Acetaminophen 1 tab 12/10/20 22:53 12/11/20 14:25 Oxycodone /Acetaminophen 5-325mg Tab PO 1 tab Q6H PRN Administration Pain, Moderate (4-6) Pseudoephedrine/Acetam/Chlorphenir 10 ml 12/10/20 22:53 12/11/20 19:29 Guaifenesin/Codeine 100-10mg Oral Liqd 5 Ml PO 10 ml Q4H PRN Administration Cough Sodium Chloride 10 ml 12/11/20 10:00 12/12/20 09:31 Sodium Chloride 0.9% 10 Ml Flush Syringe IV 10 ml BID KARLIE Administration Sodium Chloride 10 ml 12/10/20 23:52 12/11/20 00:18 Sodium Chloride 0.9% 10 Ml Flush Syringe IV 10 ml PRN PRN Administration LINE FLUSH
--- NOTE | 2020-12-12 12:18 | Consultation ---
History of Present Illness Consult date: 12/12/20 Requesting physician: KILO CANALES Reason for consult: asthma History of present illness: 60 y/o female admitted with acute respiratory failure and COPD exacerbation. Past History Past Medical History: hypertension, other (Asthma, fibromyalgia, hypothyroidism) Medications and Allergies Allergies Allergy/AdvReac Type Severity Reaction Status Date / Time lisinopril Allergy Angioedema Verified 12/10/20 14:51 Home Medications Medication Instructions Recorded Confirmed Last Taken Type Amlodipine Besylate [Norvasc] 5 mg PO DAILY 12/10/20 12/10/20 Unknown History FLUoxetine [PROzac] 25 mg PO QDAY 12/10/20 12/10/20 Unknown History Gabapentin [Neurontin] 600 mg PO Q8HR 12/10/20 12/10/20 Unknown History Levothyroxine [Synthroid] 125 mcg PO QAM 12/10/20 12/10/20 Unknown History Meclizine [Antivert] 12.5 mg PO BID PRN 12/10/20 12/10/20 Unknown History Active Meds: Active Medications Acetaminophen (Acetaminophen 325 Mg Tab) 650 mg PO Q4H PRN PRN Reason: Pain MILD(1-3)/Fever >100.5/[facility] Amlodipine Besylate (Amlodipine 5 Mg Tab) 5 mg PO DAILY [facility] Last Admin: 12/12/20 09:31 Dose: 5 mg Documented by: Arformoterol Tartrate (Arformoterol 15 Mcg/2 Ml Nebu) 15 mcg IH Q12HRT [facility] Azithromycin (Azithromycin 250 Mg Tab) 250 mg PO QDAY [facility]; Protocol Stop: 12/17/20 10:01 Budesonide (Budesonide 0.5 Mg/2 Ml Nebu) 0.5 mg IH Q12HRT [facility] Famotidine (Famotidine 20 Mg Tab) 20 mg PO BID [facility] Fluoxetine HCl (Fluoxetine 20 Mg Cap) 20 mg PO QDAY [facility] Last Admin: 12/12/20 09:31 Dose: 20 mg Documented by: Gabapentin (Gabapentin 300 Mg Cap) 600 mg PO QHS [facility] Last Admin: 12/11/20 22:05 Dose: 600 mg Documented by: Meclizine HCl (Meclizine 12.5 Mg Tab) 12.5 mg PO BID PRN PRN Reason: Vertigo Methylprednisolone Sodium Succinate (Methylprednisolone Sod Succinate 125 Mg/2 Ml Inj) 60 mg IV Q6H [facility]ARLIE Metoclopramide HCl (Metoclopramide 10 Mg/2 Ml Inj) 10 mg IV Q6H PRN PRN Reason: Nausea And Vomiting Morphine Sulfate (Morphine 2 Mg/1 Ml Inj) 2 mg IV Q4H PRN PRN Reason: Pain, Moderate (4-6) Last Admin: 12/12/20 09:32 Dose: 2 mg Documented by: Ondansetron HCl (Ondansetron 4 Mg/2 Ml Inj) 4 mg IV Q8H PRN PRN Reason: Nausea And Vomiting Oxycodone/Acetaminophen (Oxycodone /Acetaminophen 5-325mg Tab) 1 tab PO Q6H PRN PRN Reason: Pain, Moderate (4-6) Last Admin: 12/11/20 14:25 Dose: 1 tab Documented by: Pseudoephedrine/Acetam/Chlorphenir (Guaifenesin/Codeine 100-10mg Oral Liqd 5 Ml) 10 ml PO Q4H PRN PRN Reason: Cough Last Admin: 12/11/20 19:29 Dose: 10 ml Documented by: Sodium Chloride (Sodium Chloride 0.9% 10 Ml Flush Syringe) 10 ml IV BID KARLIE Last Admin: 12/12/20 09:31 Dose: 10 ml Documented by: Sodium Chloride (Sodium Chloride 0.9% 10 Ml Flush Syringe) 10 ml IV PRN PRN PRN Reason: LINE FLUSH Last Admin: 12/11/20 00:18 Dose: 10 ml Documented by: Physical Examination Vital signs: Vital Signs Temp Pulse Resp BP Pulse Ox 98.5 F 91 H 22 152/99 96 12/10/20 14:18 12/10/20 14:18 12/10/20 14:18 12/10/20 14:18 12/10/20 14:18 General appearance: no acute distress, alert Eyes: non-icteric Neck: supple Effort: normal Ascultation: Bilateral: diminished breath sounds, wheezes Results - Laboratory Findings CBC and BMP: 12/12/20 08:51 12/11/20 04:00 PT/INR, D-dimer PT 14.6 Sec. (12.2-14.9) 12/11/20 01:14 INR 1.16 (0.87-1.13) H 12/11/20 01:14 Abnormal lab findings: Abnormal Labs 12/10/20 12/10/20 12/10/20 14:43 14:43 14:43 Monocytes % (Manual) Eosinophils % (Manual) 16.0 H Basophils % (Manual) 2.0 H Eosinophils # (Manual) 0.9 H INR APTT 22.0 L Heparin Anti-Xa Level Sodium Potassium AST 67 H Total Creatine Kinase CK-MB (CK-2) Troponin T 2.230 H* Total Protein 8.6 H Albumin 3.2 L TSH 12/10/20 12/11/20 12/11/20 18:11 01:14 01:14 Monocytes % (Manual) Eosinophils % (Manual) Basophils % (Manual) Eosinophils # (Manual) INR 1.16 H APTT 100.4 H* Heparin Anti-Xa Level Sodium Potassium AST Total Creatine Kinase 563 H CK-MB (CK-2) 15.4 H Troponin T 2.050 H* 1.960 H* Total Protein Albumin TSH 12/11/20 12/11/20 12/11/20 04:00 04:00 04:00 Monocytes % (Manual) 10.0 H Eosinophils % (Manual) 13.0 H Basophils % (Manual) Eosinophils # (Manual) 0.9 H INR APTT Heparin Anti-Xa Level Sodium 136 L Potassium 3.5 L AST 57 H Total Creatine Kinase CK-MB (CK-2) Troponin T Total Protein Albumin 2.8 L TSH 0.070 L 12/11/20 12/11/20 12/11/20 10:25 10:25 10:25 Monocytes % (Manual) Eosinophils % (Manual) Basophils % (Manual) Eosinophils # (Manual) INR APTT Heparin Anti-Xa Level 1.44 H Sodium Potassium AST Total Creatine Kinase 487 H 475 H CK-MB (CK-2) 12.5 H 12.5 H Troponin T 1.690 H* Total Protein Albumin TSH 12/11/20 12/12/20 21:09 08:51 Monocytes % (Manual) Eosinophils % (Manual) Basophils % (Manual) Eosinophils # (Manual) INR APTT Heparin Anti-Xa Level 0.74 H 0.29 L Sodium Potassium AST Total Creatine Kinase CK-MB (CK-2) Troponin T Total Protein Albumin TSH - Diagnostic Findings Chest x-ray: image reviewed Assessment and Plan 60 y/o female admitted with several days to weeks of dyspnea on exertion found to have NSTEMI and Asthma exacerbation. 1. Will increase steroids to 60q6 2. Will add BID pulmicort and brovana therapy 3. Will check BNP 4. Keep patient net negative from a fluid balance standpoint.
[2020-12-12] MEDS: ARFORMOTEROL 15 MCG/2 ML NEBU IH SCH ×2 (13:22→20:57)
[2020-12-12] MEDS: BUDESONIDE 0.5 MG/2 ML NEBU IH SCH ×2 (13:22→20:57)
[2020-12-12] MEDS ORDERED: methylPREDNISolone Sod Succinate 40 MG/1 ML INJ IV SCH (14:00)
[2020-12-12] MEDS: oxyCODONE /ACETAMINOPHEN 5-325MG TAB PO PRN (14:58)
[2020-12-12] MEDS: methylPREDNISolone Sod Succinate 125 MG/2 ML INJ IV SCH ×2 (14:58→20:30)
[2020-12-12] MEDS: GABAPENTIN 300 MG CAP PO SCH (21:46)
[2020-12-12] MEDS: FAMOTIDINE 20 MG TAB PO SCH (21:46)
[2020-12-13] MEDS: methylPREDNISolone Sod Succinate 125 MG/2 ML INJ IV SCH ×4 (02:32→18:43)
[2020-12-13] MEDS: ARFORMOTEROL 15 MCG/2 ML NEBU IH SCH ×2 (08:41→21:39)
[2020-12-13] MEDS: BUDESONIDE 0.5 MG/2 ML NEBU IH SCH ×2 (08:41→21:39)
--- NOTE | 2020-12-13 09:09 | Progress Note ---
Assessment and Plan - Patient Problems (1) Elevated troponin Current Visit: Yes Status: Acute Plan to address problem: Patient has a troponin elevation, in the setting of acute exacerbation of her chronic asthma. Following optimization of pulmonary status and diffuse bronchospasm, we will proceed with cardiac catheterization and coronary angiography. Subjective Date of service: 12/13/20 Principal diagnosis: Shortness of breath, elevated troponin Interval history: Patient's clinical status is improving with management of her asthma exacerbation. Objective Vital Signs Temp Pulse Pulse Pulse Resp Resp Resp 12/13/20 09:01 97.9 F 116 H 18 12/13/20 08:41 102 H 18 12/13/20 03:24 98.4 F 93 H 18 12/12/20 23:49 98.1 F 91 H 17 12/12/20 20:59 102 H 100 H 20 20 12/12/20 20:33 118 H 12/12/20 19:41 98.6 F 118 H 18 12/12/20 18:35 93 H 18 12/12/20 16:46 99 H 12/12/20 13:22 109 H 97 H 20 20 12/12/20 12:00 12/12/20 10:00 93 H 12/12/20 09:31 101 H BP BP Pulse Ox 12/13/20 09:01 154/84 96 12/13/20 08:41 94 12/13/20 03:24 121/79 94 12/12/20 23:49 156/82 98 12/12/20 20:59 95 12/12/20 20:33 12/12/20 19:41 150/88 93 12/12/20 18:35 142/86 98 12/12/20 16:46 12/12/20 13:22 12/12/20 12:00 98 12/12/20 10:00 12/12/20 09:31 137/93 - Physical Examination General: No Apparent Distress HEENT: Positive: PERRL Neck: Positive: trachea midline Cardiac: Positive: Reg Rate and Rhythm Lungs: Positive: Decreased Breath Sounds Neuro: Positive: Grossly Intact Abdomen: Positive: Soft Skin: Positive: Clear Extremities: Absent: edema - Labs and Meds CBC 12/12/20 Range/Units 08:51 Hgb 12.3 (10.1-14.3) gm/dl Hct 36.4 (30.3-42.9) % Plt Count 266 (140-440) K/mm3 - Imaging and Cardiology EKG: report reviewed (Sinus rhythm heart rate of 92/min old anterior infarct)
[2020-12-13] MEDS: oxyCODONE /ACETAMINOPHEN 5-325MG TAB PO PRN (09:17)
[2020-12-13] MEDS: amLODIPine 5 MG TAB PO SCH (09:17)
[2020-12-13] MEDS: AZITHROMYCIN 250 MG TAB PO SCH (09:18)
[2020-12-13] MEDS: FLUoxetine 20 MG CAP PO SCH (09:18)
[2020-12-13] MEDS: FAMOTIDINE 20 MG TAB PO SCH ×2 (09:18→21:18)
[2020-12-13] MEDS: guaiFENesin/CODEINE 100-10MG ORAL LIQD 5 ML PO PRN (09:28)
[2020-12-13] MEDS ORDERED: amLODIPine 5 MG TAB PO SCH (10:15)
--- NOTE | 2020-12-13 10:16 | Progress Note ---
Assessment and Plan Assessment and plan: #Asthma exacerbation Solu-Medrol increased to 60 q 6hr Bronchodilators Azithromycin Pulmonology recs appreciated #Dyspnea on exertion Due to asthma exacerbation Treat as above #Elevated troponin Patient has left-sided chest pain No known history of coronary artery disease Cardiology recs appreciated Plan for stress test as per cardiology on Tuesday #Hypertension BP medications as needed #Hypothyroidism On Synthroid but TSH is low and T4 is normal. free T3 pending #Fibromyalgia Follow-up with PCP #Peripheral neuropathy Continue gabapentin #DVT prophylaxis-Heparin History Interval history: 60-year-old female, history of hypertension, fibromyalgia, hypothyroidism, asthma, presents to ED with difficulty breathing. Patient reports she has been having some shortness of breath for the last 3 weeks. She reports dyspnea on exertion and also orthopnea. She denies any lower extremity swelling. Patient reports pain to bilateral lower extremities secondary to neuropathy and her fibromyalgia. Patient states she had her first appointment with a primary care provider today. Patient states that the office she started having some mild left-sided chest pain and she was advised to come to the emergency room. She denies any chest pain at this time. Patient also reports that her history of asthma. States over the last few weeks she thought that her difficulty breathing may be secondary to her asthma however she states reports no improvement with albuterol. In the ER, patient was noted to have elevated troponin was admitted for further evaluation. Cardiology was consulted. 12/11. Patient seen and examined at bedside this morning. Awaiting cardiology evaluation. Echocardiogram ordered. She has wheezes bilaterally. Her chest xray is clear. She has a history of asthma and usually uses inhalers. Started on Solu-Medrol 40 every 8 this AM. On bronchodilators 12/12. Feels better. Still wheezing. Consulted pulmonology this AM. Per c ardiology team, she will have stress test on Tuesday. Will make NPO after MN on tuesday. Hospitalist Physical - Physical exam Narrative exam: VITAL SIGNS: Reviewed. GENERAL: Awake HEAD: No signs of head trauma. EYES: Pupils are equal. Extraocular motions intact. MOUTH: Oropharynx is normal. NECK: No adenopathy, no JVD. CHEST: Bilateral wheezes CARDIAC: normal S1 and S2, without murmurs, gallops, or rubs. ABDOMEN: Soft, non tender and non distended. No rebound or guarding, and no masses palpated. Bowel Sounds normal. MUSCULOSKELETAL: No edema NEUROLOGIC EXAM: Alert and oriented x3. No focal neurologic deficits SKIN: No obvious lesions - Constitutional Vitals: Temp Pulse Resp BP Pulse Ox 97.9 F 116 H 18 154/84 96 12/13/20 09:01 12/13/20 09:17 12/13/20 09:01 12/13/20 09:17 12/13/20 09:01 HEART Score - HEART Score Age: 45-65 Risk factors: 1-2 risk factors Troponin: Troponin T 1.690 ng/mL (0.00-0.029) H* 12/11/20 10:25 Troponin: > 3x normal limit - Critical Actions Critical Actions: >7 pts:50-65% risk of adverse cardiac event. Early invasive measures Results - Labs CBC & Chem 7: 12/14/20 04:37 12/11/20 04:00 Labs: Laboratory Last Values WBC 6.6 K/mm3 (4.5-11.0) 12/11/20 04:00 RBC 4.07 M/mm3 (3.65-5.03) 12/11/20 04:00 Hgb 12.3 gm/dl (10.1-14.3) 12/12/20 08:51 Hct 36.4 % (30.3-42.9) 12/12/20 08:51 MCV 86 fl (79-97) 12/11/20 04:00 MCH 29 pg (28-32) 12/11/20 04:00 MCHC 34 % (30-34) 12/11/20 04:00 RDW 14.1 % (13.2-15.2) 12/11/20 04:00 Plt Count 266 K/mm3 (140-440) 12/12/20 08:51 Lymph % (Auto) [employer] 12/10/20 14:43 Menard % (Auto) [employer] 12/10/20 14:43 Eos % (Auto) [employer] 12/11/20 04:00 Baso % (Auto) [employer] 12/10/20 14:43 Lymph # (Auto) [employer] 12/10/20 14:43 [place]ard # (Auto) [employer] 12/10/20 14:43 Eos # (Auto) [employer] 12/10/20 14:43 Baso # (Auto) [employer] 12/10/20 14:43 Add Manual Diff Complete 12/11/20 04:00 Total Counted 100 12/11/20 04:00 Seg Neutrophils % [employer] 12/10/20 14:43 Seg Neuts % (Manual) 50.0 % (40.0-70.0) 12/11/20 04:00 Lymphocytes % (Manual) 26.0 % (13.4-35.0) 12/11/20 04:00 Monocytes % (Manual) 10.0 % (0.0-7.3) H 12/11/20 04:00 Eosinophils % (Manual) 13.0 % (0.0-4.3) H 12/11/20 04:00 Basophils % (Manual) 2.0 % (0.0-1.8) H 12/10/20 14:43 Metamyelocytes % 1.0 % 12/11/20 04:00 Nucleated RBC % Not Reportable 12/11/20 04:00 Seg Neutrophils # [employer] 12/10/20 14:43 Seg Neutrophils # Man 3.3 K/mm3 (1.8-7.7) 12/11/20 04:00 Band Neutrophils # 0.0 K/mm3 12/11/20 04:00 Lymphocytes # (Manual) 1.7 K/mm3 (1.2-5.4) 12/11/20 04:00 Abs React Lymphs (Man) 0.0 K/mm3 12/11/20 04:00 Monocytes # (Manual) 0.7 K/mm3 (0.0-0.8) 12/11/20 04:00 Eosinophils # (Manual) 0.9 K/mm3 (0.0-0.4) H 12/11/20 04:00 Basophils # (Manual) 0.0 K/mm3 (0.0-0.1) 12/11/20 04:00 Metamyelocytes # 0.1 K/mm3 12/11/20 04:00 Myelocytes # 0.0 K/mm3 12/11/20 04:00 Promyelocytes # 0.0 K/mm3 12/11/20 04:00 Blast Cells # 0.0 K/mm3 12/11/20 04:00 WBC Morphology Not Reportable 12/11/20 04:00 Hypersegmented Neuts Not Reportable 12/11/20 04:00 Hyposegmented Neuts Not Reportable 12/11/20 04:00 Hypogranular Neuts Not Reportable 12/11/20 04:00 Smudge Cells Not Reportable 12/11/20 04:00 Toxic Granulation Not Reportable 12/11/20 04:00 Toxic Vacuolation Not Reportable 12/11/20 04:00 Dohle Bodies Not Reportable 12/11/20 04:00 Pelger-Huet Anomaly Not Reportable 12/11/20 04:00 Emelina Rods Not Reportable 12/11/20 04:00 Platelet Estimate Consistent w auto 12/11/20 04:00 Clumped Platelets Not Reportable 12/11/20 04:00 Plt Clumps, EDTA Not Reportable 12/11/20 04:00 Large Platelets Not Reportable 12/11/20 04:00 Giant Platelets Not Reportable 12/11/20 04:00 Platelet Satelliting Not Reportable 12/11/20 04:00 Plt Morphology Comment Not Reportable 12/11/20 04:00 RBC Morphology Not Reportable 12/11/20 04:00 Dimorphic RBCs Not Reportable 12/11/20 04:00 Polychromasia Not Reportable 12/11/20 04:00 Hypochromasia Not Reportable 12/11/20 04:00 Poikilocytosis Not Reportable 12/11/20 04:00 Anisocytosis Not Reportable 12/11/20 04:00 Microcytosis Not Reportable 12/11/20 04:00 Macrocytosis Not Reportable 12/11/20 04:00 Spherocytes Not Reportable 12/11/20 04:00 Pappenheimer Bodies Not Reportable 12/11/20 04:00 Sickle Cells Not Reportable 12/11/20 04:00 Target Cells Not Reportable 12/11/20 04:00 Tear Drop Cells Rare 12/11/20 04:00 Ovalocytes Rare 12/11/20 04:00 Helmet Cells Not Reportable 12/11/20 04:00 [place] Bodies Not Reportable 12/11/20 04:00 [place] Rings Not Reportable 12/11/20 04:00 [place] Cells Not Reportable 12/11/20 04:00 Bite Cells Not Reportable 12/11/20 04:00 Crenated Cell Not Reportable 12/11/20 04:00 Elliptocytes Not Reportable 12/11/20 04:00 Acanthocytes (Spur) Not Reportable 12/11/20 04:00 Rouleaux Not Reportable 12/11/20 04:00 Hemoglobin C Crystals Not Reportable 12/11/20 04:00 Schistocytes Not Reportable 12/11/20 04:00 Malaria parasites Not Reportable 12/11/20 04:00 [place] Bodies Not Reportable 12/11/20 04:00 Hem Pathologist Commnt No 12/11/20 04:00 PT 14.6 Sec. (12.2-14.9) 12/11/20 01:14 INR 1.16 (0.87-1.13) H 12/11/20 01:14 APTT 100.4 Sec. (24.2-36.6) H* 12/11/20 01:14 Heparin Anti-Xa Level 0.29 U.I./ml (0.3-0.7) L 12/12/20 08:51 Sodium 136 mmol/L (137-145) L 12/11/20 04:00 Potassium 3.5 mmol/L (3.6-5.0) L 12/11/20 04:00 Chloride 99.5 mmol/L (98-107) 12/11/20 04:00 Carbon Dioxide 29 mmol/L (22-30) 12/11/20 04:00 Anion Gap 11 mmol/L 12/11/20 04:00 BUN 11 mg/dL (7-17) 12/11/20 04:00 Creatinine 0.9 mg/dL (0.6-1.2) 12/11/20 04:00 Estimated GFR > 60 ml/min 12/11/20 04:00 BUN/Creatinine Ratio 12 % 12/11/20 04:00 Glucose 86 mg/dL (65-100) 12/11/20 04:00 Hemoglobin A1c 5.5 % (4-6) 12/11/20 04:00 Calcium 8.6 mg/dL (8.4-10.2) 12/11/20 04:00 Total Bilirubin 0.40 mg/dL (0.1-1.2) 12/11/20 04:00 AST 57 units/L (5-40) H 12/11/20 04:00 ALT 21 units/L (7-56) 12/11/20 04:00 Alkaline Phosphatase 46 units/L (35-129) 12/11/20 04:00 Total Creatine Kinase 475 units/L (30-135) H 12/11/20 10:25 Total Creatine Kinase 487 units/L (30-135) H 12/11/20 10:25 CK-MB (CK-2) 12.5 ng/mL (0.0-4.0) H 12/11/20 10:25 CK-MB (CK-2) 12.5 ng/mL (0.0-4.0) H 12/11/20 10:25 CK-MB (CK-2) Rel Index 2.5 (0-4) 12/11/20 10:25 CK-MB (CK-2) Rel Index 2.6 (0-4) 12/11/20 10:25 Troponin T 1.690 ng/mL (0.00-0.029) H* 12/11/20 10:25 NT-Pro-B Natriuret Pep 60.69 pg/mL (0-900) 12/12/20 12:33 Total Protein 7.8 g/dL (6.3-8.2) 12/11/20 04:00 Albumin 2.8 g/dL (3.9-5) L 12/11/20 04:00 Albumin/Globulin Ratio 0.6 % 12/11/20 04:00 Triglycerides 130 mg/dL (2-149) 12/10/20 14:43 Cholesterol 142 mg/dL (50-199) 12/10/20 14:43 LDL Cholesterol Direct 82 mg/dL (50-130) 12/10/20 14:43 HDL Cholesterol 40 mg/dL (40-59) 12/10/20 14:43 Cholesterol/HDL Ratio 3.55 % 12/10/20 14:43 TSH 0.070 mlU/mL (0.270-4.200) L 12/11/20 04:00 Free T4 1.28 ng/dL (0.76-1.46) 12/12/20 08:51 Miranda/IV: Voiding Method Toilet Active Medications - Current Medications Current Medications: Generic Name Dose Route Start Last Admin Trade Name Freq PRN Reason Stop Dose Admin Acetaminophen 650 mg 12/10/20 23:52 Acetaminophen 325 Mg Tab PO Q4H PRN Pain MILD(1-3)/Fever >100.5/[facility] Amlodipine Besylate 10 mg 12/13/20 10:15 Amlodipine 5 Mg Tab PO DAILY KARLIE Arformoterol Tartrate 15 mcg 12/12/20 12:00 12/13/20 08:41 Arformoterol 15 Mcg/2 Ml Nebu IH 15 mcg Q12HRT KARLIE Administration Azithromycin 250 mg 12/13/20 10:00 12/13/20 09:18 Azithromycin 250 Mg Tab PO 12/17/20 10:01 250 mg QDAY KARLIE Administration Protocol Budesonide 0.5 mg 12/12/20 13:00 12/13/20 08:41 Budesonide 0.5 Mg/2 Ml Nebu IH 0.5 mg Q12HRT KARLIE Administration Famotidine 20 mg 12/12/20 22:00 12/13/20 09:18 Famotidine 20 Mg Tab PO 20 mg BID KARLIE Administration Fluoxetine HCl 20 mg 12/11/20 10:00 12/13/20 09:18 Fluoxetine 20 Mg Cap PO 20 mg QDAY KARLIE Administration Gabapentin 600 mg 12/11/20 22:00 12/12/20 21:46 Gabapentin 300 Mg Cap PO 600 mg QHS KARLIE Administration Meclizine HCl 12.5 mg 12/10/20 23:50 Meclizine 12.5 Mg Tab PO BID PRN Vertigo Methylprednisolone Sodium Succinate 60 mg 12/12/20 13:00 12/13/20 09:29 Methylprednisolone Sod Succinate 125 Mg/2 Ml Inj IV 60 mg Q6H KARLIE Administration Metoclopramide HCl 10 mg 12/10/20 23:52 Metoclopramide 10 Mg/2 Ml Inj IV Q6H PRN Nausea And Vomiting Morphine Sulfate 2 mg 12/10/20 22:53 12/12/20 18:07 Morphine 2 Mg/1 Ml Inj IV 2 mg Q4H PRN Administration Pain, Moderate (4-6) Ondansetron HCl 4 mg 12/10/20 23:52 Ondansetron 4 Mg/2 Ml Inj IV Q8H PRN Nausea And Vomiting Oxycodone/Acetaminophen 1 tab 12/10/20 22:53 12/13/20 09:17 Oxycodone /Acetaminophen 5-325mg Tab PO 1 tab Q6H PRN Administration Pain, Moderate (4-6) Pseudoephedrine/Acetam/Chlorphenir 10 ml 12/10/20 22:53 12/13/20 09:28 Guaifenesin/Codeine 100-10mg Oral Liqd 5 Ml PO 10 ml Q4H PRN Administration Cough Sodium Chloride 10 ml 12/11/20 10:00 12/13/20 09:18 Sodium Chloride 0.9% 10 Ml Flush Syringe IV 10 ml BID KARLIE Administration Sodium Chloride 10 ml 12/10/20 23:52 12/11/20 00:18 Sodium Chloride 0.9% 10 Ml Flush Syringe IV 10 ml PRN PRN Administration LINE FLUSH
[2020-12-13] MEDS ORDERED: amLODIPine 5 MG TAB PO NR (13:00)
[2020-12-13] MEDS: MORPHINE 2 MG/1 ML INJ IV PRN (14:44)
[2020-12-13] MEDS: ENOXAPARIN 40 MG/0.4 ML INJ SUB-Q SCH (21:18)
[2020-12-13] MEDS: GABAPENTIN 300 MG CAP PO SCH (21:18)
[2020-12-14] MEDS: methylPREDNISolone Sod Succinate 125 MG/2 ML INJ IV SCH ×4 (00:22→19:56)
[2020-12-14 05:46] LABS: Hematocrit 33.7 % (30.3-42.9); Hemoglobin 11.4 gm/dl (10.1-14.3)
[2020-12-14] MEDS: BUDESONIDE 0.5 MG/2 ML NEBU IH SCH ×2 (07:34→20:27)
[2020-12-14] MEDS: ARFORMOTEROL 15 MCG/2 ML NEBU IH SCH ×2 (07:34→20:27)
[2020-12-14] MEDS: AZITHROMYCIN 250 MG TAB PO SCH (09:13)
[2020-12-14] MEDS: oxyCODONE /ACETAMINOPHEN 5-325MG TAB PO PRN (09:13)
[2020-12-14] MEDS: amLODIPine 10 MG TAB PO SCH (09:14)
[2020-12-14] MEDS: FAMOTIDINE 20 MG TAB PO SCH ×2 (09:14→21:06)
[2020-12-14] MEDS: FLUoxetine 20 MG CAP PO SCH (09:14)
--- NOTE | 2020-12-14 10:09 | Progress Note ---
Assessment and Plan Assessment and plan: #Asthma exacerbation Solu-Medrol Bronchodilators Azithromycin Pulmonology recs appreciated #Dyspnea on exertion Due to asthma exacerbation Treat as above #Elevated troponin Patient has left-sided chest pain No known history of coronary artery disease Cardiology recs appreciated Plan for cardiac catherization and coronary angiography tomorrow #Hypertension BP medications as needed #Hypothyroidism On Synthroid but TSH is low and T4 is normal. free T3 pending #Fibromyalgia Follow-up with PCP #Peripheral neuropathy Continue gabapentin #DVT prophylaxis-Heparin History Interval history: 60-year-old female, history of hypertension, fibromyalgia, hypothyroidism, asthma, presents to ED with difficulty breathing. Patient reports she has been having some shortness of breath for the last 3 weeks. She reports dyspnea on exertion and also orthopnea. She denies any lower extremity swelling. Patient reports pain to bilateral lower extremities secondary to neuropathy and her fibromyalgia. Patient states she had her first appointment with a primary care provider today. Patient states that the office she started having some mild left-sided chest pain and she was advised to come to the emergency room. She denies any chest pain at this time. Patient also reports that her history of asthma. States over the last few weeks she thought that her difficulty breathing may be secondary to her asthma however she states reports no improvement with albuterol. In the ER, patient was noted to have elevated troponin was admitted for further evaluation. Cardiology was consulted. 12/11. Patient seen and examined at bedside this morning. Awaiting cardiology evaluation. Echocardiogram ordered. She has wheezes bilaterally. Her chest xray is clear. She has a history of asthma and usually uses inhalers. Started on Solu-Medrol 40 every 8 this AM. On bronchodilators 12/12. Feels better. Still wheezing. Consulted pulmonology this AM. Per cardiolo gy team, she will have stress test on Tuesday. Will make NPO after MN on tuesday. 12/14. Wheezing has improved. On high dose steroids and bronchodilators. Pulmonology following. Plan for stress test on Tuesday. Hospitalist Physical - Constitutional Vitals: Temp Pulse Resp BP Pulse Ox 97.4 F L 83 20 148/85 100 12/14/20 07:45 12/14/20 09:14 12/14/20 07:45 12/14/20 09:14 12/14/20 07:45 General appearance: Present: no acute distress HEART Score - HEART Score Age: 45-65 Risk factors: 1-2 risk factors Troponin: Troponin T 1.690 ng/mL (0.00-0.029) H* 12/11/20 10:25 Troponin: > 3x normal limit - Critical Actions Critical Actions: >7 pts:50-65% risk of adverse cardiac event. Early invasive measures Results - Labs CBC & Chem 7: 12/15/20 04:44 12/15/20 04:44 Labs: Laboratory Last Values WBC 6.6 K/mm3 (4.5-11.0) 12/11/20 04:00 RBC 4.07 M/mm3 (3.65-5.03) 12/11/20 04:00 Hgb 11.4 gm/dl (10.1-14.3) 12/14/20 04:37 Hct 33.7 % (30.3-42.9) 12/14/20 04:37 MCV 86 fl (79-97) 12/11/20 04:00 MCH 29 pg (28-32) 12/11/20 04:00 MCHC 34 % (30-34) 12/11/20 04:00 RDW 14.1 % (13.2-15.2) 12/11/20 04:00 Plt Count 255 K/mm3 (140-440) 12/14/20 04:37 Lymph % (Auto) [facility] 12/10/20 14:43 [place] % (Auto) [facility] 12/10/20 14:43 Eos % (Auto) [facility] 12/11/20 04:00 Baso % (Auto) [facility] 12/10/20 14:43 Lymph # (Auto) [facility] 12/10/20 14:43 [place] # (Auto) [facility] 12/10/20 14:43 Eos # (Auto) [facility] 12/10/20 14:43 Baso # (Auto) [facility] 12/10/20 14:43 Add Manual Diff Complete 12/11/20 04:00 Total Counted 100 12/11/20 04:00 Seg Neutrophils % [facility] 12/10/20 14:43 Seg Neuts % (Manual) 50.0 % (40.0-70.0) 12/11/20 04:00 Lymphocytes % (Manual) 26.0 % (13.4-35.0) 12/11/20 04:00 Monocytes % (Manual) 10.0 % (0.0-7.3) H 12/11/20 04:00 Eosinophils % (Manual) 13.0 % (0.0-4.3) H 12/11/20 04:00 Basophils % (Manual) 2.0 % (0.0-1.8) H 12/10/20 14:43 Metamyelocytes % 1.0 % 12/11/20 04:00 Nucleated RBC % Not Reportable 12/11/20 04:00 Seg Neutrophils # [facility] 12/10/20 14:43 Seg Neutrophils # Man 3.3 K/mm3 (1.8-7.7) 12/11/20 04:00 Band Neutrophils # 0.0 K/mm3 12/11/20 04:00 Lymphocytes # (Manual) 1.7 K/mm3 (1.2-5.4) 12/11/20 04:00 Abs React Lymphs (Man) 0.0 K/mm3 12/11/20 04:00 Monocytes # (Manual) 0.7 K/mm3 (0.0-0.8) 12/11/20 04:00 Eosinophils # (Manual) 0.9 K/mm3 (0.0-0.4) H 12/11/20 04:00 Basophils # (Manual) 0.0 K/mm3 (0.0-0.1) 12/11/20 04:00 Metamyelocytes # 0.1 K/mm3 12/11/20 04:00 Myelocytes # 0.0 K/mm3 12/11/20 04:00 Promyelocytes # 0.0 K/mm3 12/11/20 04:00 Blast Cells # 0.0 K/mm3 12/11/20 04:00 WBC Morphology Not Reportable 12/11/20 04:00 Hypersegmented Neuts Not Reportable 12/11/20 04:00 Hyposegmented Neuts Not Reportable 12/11/20 04:00 Hypogranular Neuts Not Reportable 12/11/20 04:00 Smudge Cells Not Reportable 12/11/20 04:00 Toxic Granulation Not Reportable 12/11/20 04:00 Toxic Vacuolation Not Reportable 12/11/20 04:00 Dohle Bodies Not Reportable 12/11/20 04:00 Pelger-Huet Anomaly Not Reportable 12/11/20 04:00 Emelina Rods Not Reportable 12/11/20 04:00 Platelet Estimate Consistent w auto 12/11/20 04:00 Clumped Platelets Not Reportable 12/11/20 04:00 Plt Clumps, EDTA Not Reportable 12/11/20 04:00 Large Platelets Not Reportable 12/11/20 04:00 Giant Platelets Not Reportable 12/11/20 04:00 Platelet Satelliting Not Reportable 12/11/20 04:00 Plt Morphology Comment Not Reportable 12/11/20 04:00 RBC Morphology Not Reportable 12/11/20 04:00 Dimorphic RBCs Not Reportable 12/11/20 04:00 Polychromasia Not Reportable 12/11/20 04:00 Hypochromasia Not Reportable 12/11/20 04:00 Poikilocytosis Not Reportable 12/11/20 04:00 Anisocytosis Not Reportable 12/11/20 04:00 Microcytosis Not Reportable 12/11/20 04:00 Macrocytosis Not Reportable 12/11/20 04:00 Spherocytes Not Reportable 12/11/20 04:00 Pappenheimer Bodies Not Reportable 12/11/20 04:00 Sickle Cells Not Reportable 12/11/20 04:00 Target Cells Not Reportable 12/11/20 04:00 Tear Drop Cells Rare 12/11/20 04:00 Ovalocytes Rare 12/11/20 04:00 Helmet Cells Not Reportable 12/11/20 04:00 Ponce-Rev[place] Bodies Not Reportable 12/11/20 04:00 [place] Rings Not Reportable 12/11/20 04:00 [place] Cells Not Reportable 12/11/20 04:00 Bite Cells Not Reportable 12/11/20 04:00 Crenated Cell Not Reportable 12/11/20 04:00 Elliptocytes Not Reportable 12/11/20 04:00 Acanthocytes (Spur) Not Reportable 12/11/20 04:00 Rouleaux Not Reportable 12/11/20 04:00 Hemoglobin C Crystals Not Reportable 12/11/20 04:00 Schistocytes Not Reportable 12/11/20 04:00 Malaria parasites Not Reportable 12/11/20 04:00 Owen Bodies Not Reportable 12/11/20 04:00 Hem Pathologist Commnt No 12/11/20 04:00 PT 14.6 Sec. (12.2-14.9) 12/11/20 01:14 INR 1.16 (0.87-1.13) H 12/11/20 01:14 APTT 100.4 Sec. (24.2-36.6) H* 12/11/20 01:14 Heparin Anti-Xa Level 0.29 U.I./ml (0.3-0.7) L 12/12/20 08:51 Sodium 136 mmol/L (137-145) L 12/11/20 04:00 Potassium 3.5 mmol/L (3.6-5.0) L 12/11/20 04:00 Chloride 99.5 mmol/L (98-107) 12/11/20 04:00 Carbon Dioxide 29 mmol/L (22-30) 12/11/20 04:00 Anion Gap 11 mmol/L 12/11/20 04:00 BUN 11 mg/dL (7-17) 12/11/20 04:00 Creatinine 0.9 mg/dL (0.6-1.2) 12/11/20 04:00 Estimated GFR > 60 ml/min 12/11/20 04:00 BUN/Creatinine Ratio 12 % 12/11/20 04:00 Glucose 86 mg/dL (65-100) 12/11/20 04:00 Hemoglobin A1c 5.5 % (4-6) 12/11/20 04:00 Calcium 8.6 mg/dL (8.4-10.2) 12/11/20 04:00 Total Bilirubin 0.40 mg/dL (0.1-1.2) 12/11/20 04:00 AST 57 units/L (5-40) H 12/11/20 04:00 ALT 21 units/L (7-56) 12/11/20 04:00 Alkaline Phosphatase 46 units/L (35-129) 12/11/20 04:00 Total Creatine Kinase 475 units/L (30-135) H 12/11/20 10:25 Total Creatine Kinase 487 units/L (30-135) H 12/11/20 10:25 CK-MB (CK-2) 12.5 ng/mL (0.0-4.0) H 12/11/20 10:25 CK-MB (CK-2) 12.5 ng/mL (0.0-4.0) H 12/11/20 10:25 CK-MB (CK-2) Rel Index 2.5 (0-4) 12/11/20 10:25 CK-MB (CK-2) Rel Index 2.6 (0-4) 12/11/20 10:25 Troponin T 1.690 ng/mL (0.00-0.029) H* 12/11/20 10:25 NT-Pro-B Natriuret Pep 60.69 pg/mL (0-900) 12/12/20 12:33 Total Protein 7.8 g/dL (6.3-8.2) 12/11/20 04:00 Albumin 2.8 g/dL (3.9-5) L 12/11/20 04:00 Albumin/Globulin Ratio 0.6 % 12/11/20 04:00 Triglycerides 130 mg/dL (2-149) 12/10/20 14:43 Cholesterol 142 mg/dL (50-199) 12/10/20 14:43 LDL Cholesterol Direct 82 mg/dL (50-130) 12/10/20 14:43 HDL Cholesterol 40 mg/dL (40-59) 12/10/20 14:43 Cholesterol/HDL Ratio 3.55 % 12/10/20 14:43 TSH 0.070 mlU/mL (0.270-4.200) L 12/11/20 04:00 Free T4 1.28 ng/dL (0.76-1.46) 12/12/20 08:51 Miranda/IV: Voiding Method Toilet Active Medications - Current Medications Current Medications: Generic Name Dose Route Start Last Admin Trade Name Freq PRN Reason Stop Dose Admin Acetaminophen 650 mg 12/10/20 23:52 12/13/20 20:06 Acetaminophen 325 Mg Tab PO 650 mg Q4H PRN Administration Pain MILD(1-3)/Fever >100.5/PENN Amlodipine Besylate 10 mg 12/14/20 10:00 12/14/20 09:14 Amlodipine 10 Mg Tab PO 10 mg DAILY KARLIE Administration Arformoterol Tartrate 15 mcg 12/12/20 12:00 12/14/20 07:34 Arformoterol 15 Mcg/2 Ml Nebu IH 15 mcg Q12HRT KARLIE Administration Azithromycin 250 mg 12/13/20 10:00 12/14/20 09:13 Azithromycin 250 Mg Tab PO 12/17/20 10:01 250 mg QDAY KARLIE Administration Protocol Budesonide 0.5 mg 12/12/20 13:00 12/14/20 07:34 Budesonide 0.5 Mg/2 Ml Nebu IH 0.5 mg Q12HRT KARLIE Administration Enoxaparin Sodium 40 mg 12/13/20 22:00 12/13/20 21:18 Enoxaparin 40 Mg/0.4 Ml Inj SUB-Q 40 mg QDAY@2200 KARLIE Administration Protocol Famotidine 20 mg 12/12/20 22:00 12/14/20 09:14 Famotidine 20 Mg Tab PO 20 mg BID KARLIE Administration Fluoxetine HCl 20 mg 12/11/20 10:00 12/14/20 09:14 Fluoxetine 20 Mg Cap PO 20 mg QDAY KARLIE Administration Gabapentin 600 mg 12/11/20 22:00 12/13/20 21:18 Gabapentin 300 Mg Cap PO 600 mg QHS KARLIE Administration Meclizine HCl 12.5 mg 12/10/20 23:50 Meclizine 12.5 Mg Tab PO BID PRN Vertigo Methylprednisolone Sodium Succinate 60 mg 12/12/20 13:00 12/14/20 06:05 Methylprednisolone Sod Succinate 125 Mg/2 Ml Inj IV 60 mg Q6H KARLIE Administration Metoclopramide HCl 10 mg 12/10/20 23:52 Metoclopramide 10 Mg/2 Ml Inj IV Q6H PRN Nausea And Vomiting Morphine Sulfate 2 mg 12/10/20 22:53 12/13/20 14:44 Morphine 2 Mg/1 Ml Inj IV 2 mg Q4H PRN Administration Pain, Moderate (4-6) Ondansetron HCl 4 mg 12/10/20 23:52 Ondansetron 4 Mg/2 Ml Inj IV Q8H PRN Nausea And Vomiting Oxycodone/Acetaminophen 1 tab 12/10/20 22:53 12/14/20 09:13 Oxycodone /Acetaminophen 5-325mg Tab PO 1 tab Q6H PRN Administration Pain, Moderate (4-6) Pseudoephedrine/Acetam/Chlorphenir 10 ml 12/10/20 22:53 12/13/20 09:28 Guaifenesin/Codeine 100-10mg Oral Liqd 5 Ml PO 10 ml Q4H PRN Administration Cough Sodium Chloride 10 ml 12/11/20 10:00 12/14/20 09:14 Sodium Chloride 0.9% 10 Ml Flush Syringe IV 10 ml BID KARLIE Administration Sodium Chloride 10 ml 12/10/20 23:52 12/11/20 00:18 Sodium Chloride 0.9% 10 Ml Flush Syringe IV 10 ml PRN PRN Administration LINE FLUSH
--- NOTE | 2020-12-14 10:17 | Progress Note ---
Assessment and Plan 60 y/o female admitted with several days to weeks of dyspnea on exertion found to have NSTEMI and Asthma exacerbation. 12/14/20: Continue scheduled steroids and scheduled nebs through tomorrow. Should be able to have cardiac procedure tomorrow. Will need long acting asthma therapy at discharge, but will have to discuss with case management to see what patient can afford. 1. Will increase steroids to 60q6 2. Will add BID pulmicort and brovana therapy 3. Will check BNP 4. Keep patient net negative from a fluid balance standpoint. Subjective Date of service: 12/14/20 Interval history: Patient now weaned to room air. Stable. Objective Vital Signs - 12hr 12/13/20 12/14/20 12/14/20 23:30 00:00 04:46 Temperature 97.7 F Pulse Rate 100 H 89 92 H Respiratory 18 20 Rate Blood Pressure 180/96 145/87 O2 Sat by Pulse 91 93 Oximetry 12/14/20 12/14/20 07:45 09:14 Temperature 97.4 F L Pulse Rate 83 83 Respiratory 20 Rate Blood Pressure 148/85 148/85 O2 Sat by Pulse 100 Oximetry Constitutional: no acute distress, alert Eyes: non-icteric Neck: supple Effort: normal Ascultation: Bilateral: diminished breath sounds, wheezes CBC and BMP: 12/14/20 04:37 12/11/20 04:00 ABG, PT/INR, D-dimer: PT/INR, D-dimer PT 14.6 Sec. (12.2-14.9) 12/11/20 01:14 INR 1.16 (0.87-1.13) H 12/11/20 01:14 Abnormal lab findings: Abnormal Labs 12/10/20 12/10/20 12/10/20 14:43 14:43 14:43 Monocytes % (Manual) Eosinophils % (Manual) 16.0 H Basophils % (Manual) 2.0 H Eosinophils # (Manual) 0.9 H INR APTT 22.0 L Heparin Anti-Xa Level Sodium Potassium AST 67 H Total Creatine Kinase CK-MB (CK-2) Troponin T 2.230 H* Total Protein 8.6 H Albumin 3.2 L TSH 12/10/20 12/11/20 12/11/20 18:11 01:14 01:14 Monocytes % (Manual) Eosinophils % (Manual) Basophils % (Manual) Eosinophils # (Manual) INR 1.16 H APTT 100.4 H* Heparin Anti-Xa Level Sodium Potassium AST Total Creatine Kinase 563 H CK-MB (CK-2) 15.4 H Troponin T 2.050 H* 1.960 H* Total Protein Albumin TSH 12/11/20 12/11/20 12/11/20 04:00 04:00 04:00 Monocytes % (Manual) 10.0 H Eosinophils % (Manual) 13.0 H Basophils % (Manual) Eosinophils # (Manual) 0.9 H INR APTT Heparin Anti-Xa Level Sodium 136 L Potassium 3.5 L AST 57 H Total Creatine Kinase CK-MB (CK-2) Troponin T Total Protein Albumin 2.8 L TSH 0.070 L 12/11/20 12/11/20 12/11/20 10:25 10:25 10:25 Monocytes % (Manual) Eosinophils % (Manual) Basophils % (Manual) Eosinophils # (Manual) INR APTT Heparin Anti-Xa Level 1.44 H Sodium Potassium AST Total Creatine Kinase 487 H 475 H CK-MB (CK-2) 12.5 H 12.5 H Troponin T 1.690 H* Total Protein Albumin TSH 12/11/20 12/12/20 21:09 08:51 Monocytes % (Manual) Eosinophils % (Manual) Basophils % (Manual) Eosinophils # (Manual) INR APTT Heparin Anti-Xa Level 0.74 H 0.29 L Sodium Potassium AST Total Creatine Kinase CK-MB (CK-2) Troponin T Total Protein Albumin TSH
[2020-12-14] MEDS ORDERED: SODIUM CHLORIDE 0.9% 500 ML 500 ML IV SCH (14:00)
--- NOTE | 2020-12-14 14:04 | Progress Note ---
Assessment and Plan - Patient Problems (1) Elevated troponin Current Visit: Yes Status: Acute Plan to address problem: Patient has a marked troponin elevation, in the setting of acute exacerbation of her chronic asthma. We will proceed with cardiac catheterization and coronary angiography in the morning. Subjective Date of service: 12/14/20 Principal diagnosis: Shortness of breath, elevated troponin Interval history: Patient looks and feels better, risks and benefits of planned cardiac catheterization have been discussed extensively with her and she consents to proceed. Objective Vital Signs Temp Pulse Pulse Pulse Resp Resp Resp 12/14/20 11:14 98.0 F 106 H 20 12/14/20 10:00 109 H 12/14/20 09:14 83 12/14/20 07:45 97.4 F L 83 20 12/14/20 07:34 108 H 20 12/14/20 04:46 92 H 20 12/14/20 00:00 89 12/13/20 23:30 97.7 F 100 H 18 12/13/20 21:43 12/13/20 21:42 91 H 88 18 16 12/13/20 19:55 97.7 F 92 H 20 12/13/20 16:58 99 H 12/13/20 15:37 97.9 F 100 H 18 12/13/20 14:44 116 H BP Pulse Ox 12/14/20 11:14 142/83 99 12/14/20 10:00 12/14/20 09:14 148/85 12/14/20 07:45 148/85 100 12/14/20 07:34 98 12/14/20 04:46 145/87 93 12/14/20 00:00 12/13/20 23:30 180/96 91 12/13/20 21:43 94 12/13/20 21:42 12/13/20 19:55 156/84 95 12/13/20 16:58 12/13/20 15:37 157/78 92 12/13/20 14:44 154/84 - Physical Examination General: No Apparent Distress HEENT: Positive: PERRL Neck: Positive: trachea midline Cardiac: Positive: Reg Rate and Rhythm Lungs: Positive: Decreased Breath Sounds Neuro: Positive: Grossly Intact Abdomen: Positive: Soft Skin: Positive: Clear Extremities: Absent: edema - Labs and Meds CBC 12/14/20 Range/Units 04:37 Hgb 11.4 (10.1-14.3) gm/dl Hct 33.7 (30.3-42.9) % Plt Count 255 (140-440) K/mm3 - Imaging and Cardiology EKG: report reviewed (Sinus rhythm heart rate of 92/min old anterior infarct)
[2020-12-14] MEDS: GABAPENTIN 300 MG CAP PO SCH (21:06)
[2020-12-14] MEDS: ENOXAPARIN 40 MG/0.4 ML INJ SUB-Q SCH (21:06)
[2020-12-15] MEDS: methylPREDNISolone Sod Succinate 125 MG/2 ML INJ IV SCH ×3 (00:13→22:25)
[2020-12-15 05:19] LABS: Basophils # (Auto) 0.1 K/mm3 (0.0-0.1); Basophils % (Auto) 0.7 % (0.0-1.8); Hemoglobin 12.8 gm/dl (10.1-14.3); Lymphocytes % (Auto) 9.7 % (13.4-35.0); Mean Corpuscular HGB Conc 34 % (30-34); Mean Corpuscular Volume 87 fl (79-97); Monocytes # (Auto) 0.3 K/mm3 (0.0-0.8); Monocytes % (Auto) 2.7 % (0.0-7.3); Platelet Count 391 K/mm3 (140-440); Red Blood Count 4.38 M/mm3 (3.65-5.03); Red Cell Distribution Width 14.6 % (13.2-15.2)
[2020-12-15 05:31] LABS: Alanine Aminotransferase 35 units/L (7-56); Albumin 3.3 g/dL (3.9-5); BUN/Creatinine Ratio 32; Blood Urea Nitrogen 29 mg/dL (7-17); Calcium 8.8 mg/dL (8.4-10.2); Hemolysis Index 16
[2020-12-15] MEDS: SODIUM CHLORIDE 0.9% 500 ML 500 ML IV SCH ×2 (07:48→22:21)
[2020-12-15] MEDS ORDERED: ASPIRIN EC 325 MG TAB PO SCH (08:00)
[2020-12-15] MEDS ORDERED: HEPARIN/NS 5000 UNIT/500ML 1,000 ML IR ONE (08:12)
[2020-12-15] MEDS ORDERED: HEPARIN 10,000 UNITS/10 ML VIAL ONE (08:12)
[2020-12-15] MEDS ORDERED: VERAPAMIL 5 MG/2 ML INJ ONE (08:12)
[2020-12-15] MEDS ORDERED: NITROGLYCERIN SYRINGE 3 ML ONE (08:13)
[2020-12-15] MEDS ORDERED: LIDOCAINE (2%) 20 MG/1 ML VIAL 20 ML MDV INFILTRATI ONE (08:13)
[2020-12-15] MEDS ORDERED: fentaNYL 100 MCG/2 ML INJ ONE (08:53)
[2020-12-15] MEDS ORDERED: MIDAZOLAM 2 MG/2 ML INJ ONE (08:53)
[2020-12-15] MEDS: ARFORMOTEROL 15 MCG/2 ML NEBU IH SCH ×2 (09:15→20:27)
[2020-12-15] MEDS: BUDESONIDE 0.5 MG/2 ML NEBU IH SCH ×4 (09:15→20:27)
--- NOTE | 2020-12-15 09:52 | Cardiac Catherization Report ---
CARDIAC CATHETERIZATION REPORT REASON FOR PROCEDURE: The patient is a 60-year-old woman who presented with shortness of breath and asthma exacerbation, in the Emergency Room had a troponin measurements performed, elevated at 2.0. She was referred for cardiac catheterization for further assessment of possible coronary disease. PROCEDURES: 1. Left heart catheterization. 2. Selective left and right coronary angiography. 3. Left ventricular angiography. 4. Sedation time, start 9:22, end 9:39. I was present for the entire procedure and supervised the moderate sedation protocol. The patient was prepped and draped in a sterile fashion after informed consent. The right radial cath site was prepped and draped after a negative Jaylen's test. The right radial artery was entered using Seldinger technique followed by placement of a 6-Thai hydrophilic sheath. Routine radial cocktail was administered via the sheath. Selective left and right coronary angiography was performed using a #3.5 left Antonio and a #4 right Antonio. A pigtail catheter was used for left ventricular angiography. The catheters were removed, sheath removed, and hemostasis achieved using a TR band. The patient was returned to the postprocedure unit in stable condition. There were no complications. FINDINGS: HEMODYNAMICS: Left ventricular end-diastolic pressure was 12. Ascending aortic pressure was 152/82, there was no significant pressure gradient on pullback across the aortic valve. CORONARY ANGIOGRAPHY: The left main coronary artery was angiographically normal. There was mild narrowing of the proximal left anterior descending artery. Otherwise, this vessel and its diagonal branches were angiographically normal. The circumflex artery and its obtuse marginal branches were angiographically normal. The right coronary artery was dominant and similarly angiographically normal. There was normal left ventricular systolic function, ejection fraction greater than 55-60%. CONCLUSION: 1. Essentially, angiographically normal coronary arteries. 2. Normal left ventricular systolic function, ejection fraction >55-60%. RECOMMENDATION: Risk factor modification and medical therapy. JOB# [id number] [facility]
--- NOTE | 2020-12-15 10:10 | Event Note ---
Date: 12/15/20 Cardiac cath completed via R radial approach, no complications. Findings: Normal coronaries. Normal LV function, EF >55-60%. No further cardiac intervention, OK for cardiac discharge.
[2020-12-15] MEDS ORDERED: SODIUM CHLORIDE 0.9% 1000 ML 1,000 ML IV SCH (10:15)
[2020-12-15] MEDS: FLUoxetine 20 MG CAP PO SCH (10:17)
[2020-12-15] MEDS: AZITHROMYCIN 250 MG TAB PO SCH (10:18)
[2020-12-15] MEDS: FAMOTIDINE 20 MG TAB PO SCH ×2 (10:18→22:26)
[2020-12-15] MEDS: amLODIPine 10 MG TAB PO SCH (10:18)
--- NOTE | 2020-12-15 12:07 | Progress Note ---
Assessment and Plan Assessment and plan: #Asthma exacerbation Solu-Medrol taper Bronchodilators Azithromycin Pulmonology recs appreciated - needs a maintenance inhaler medication prior to discharge. She has medical insurance #Dyspnea on exertion Due to asthma exacerbation Treat as above #Elevated troponin LHC is negative #Hypertension BP medications as needed #Hypothyroidism On Synthroid but TSH is low and T4 is normal. free T3 pending #Fibromyalgia Follow-up with PCP #Peripheral neuropathy Continue gabapentin #DVT prophylaxis-Heparin DC planning. Will get a walk test. History Interval history: 60-year-old female, history of hypertension, fibromyalgia, hypothyroidism, asthma, presents to ED with difficulty breathing. Patient reports she has been having some shortness of breath for the last 3 weeks. She reports dyspnea on exertion and also orthopnea. She denies any lower extremity swelling. Patient reports pain to bilateral lower extremities secondary to neuropathy and her fi bromyalgia. Patient states she had her first appointment with a primary care provider today. Patient states that the office she started having some mild left-sided chest pain and she was advised to come to the emergency room. She denies any chest pain at this time. Patient also reports that her history of asthma. States over the last few weeks she thought that her difficulty breathing may be secondary to her asthma however she states reports no improvement with albuterol. In the ER, patient was noted to have elevated troponin was admitted for further evaluation. Cardiology was consulted. 12/11. Patient seen and examined at bedside this morning. Awaiting cardiology evaluation. Echocardiogram ordered. She has wheezes bilaterally. Her chest xray is clear. She has a history of asthma and usually uses inhalers. Started on Solu-Medrol 40 every 8 this AM. On bronchodilators 12/12. Feels better. Still wheezing. Consulted pulmonology this AM. Per cardiology team, she will have stress test on Tuesday. Will make NPO after MN on tuesday. 12/14. Wheezing has improved. On high dose steroids and bronchodilators. Pulmonology following. Cardiology plans to have a cardiac catheter performed tomorrow. 12/15. Patient's cardiac cath is negative for any obstructive disease. Will defer patient steroids and perform a walk test. Patient will need long-acting maintenance medication Hospitalist Physical - Physical exam Narrative exam: VITAL SIGNS: Reviewed. GENERAL: Awake HEAD: No signs of head trauma. EYES: Pupils are equal. Extraocular motions intact. MOUTH: Oropharynx is normal. NECK: No adenopathy, no JVD. CHEST: Bilateral wheezes CARDIAC: normal S1 and S2, without murmurs, gallops, or rubs. ABDOMEN: Soft, non tender and non distended. No rebound or guarding, and no masses palpated. Bowel Sounds normal. MUSCULOSKELETAL: No edema NEUROLOGIC EXAM: Alert and oriented x3. No focal neurologic deficits SKIN: No obvious lesions - Constitutional Vitals: Temp Pulse Resp BP Pulse Ox 98.0 F 100 H 21 180/102 98 12/15/20 04:08 12/15/20 10:54 12/15/20 10:30 12/15/20 10:54 12/15/20 10:54 HEART Score - HEART Score Age: 45-65 Risk factors: 1-2 risk factors Troponin: Troponin T 1.690 ng/mL (0.00-0.029) H* 12/11/20 10:25 Troponin: > 3x normal limit - Critical Actions Critical Actions: >7 pts:50-65% risk of adverse cardiac event. Early invasive measures Results - Labs CBC & Chem 7: 12/15/20 04:44 12/15/20 04:44 Labs: Laboratory Last Values WBC 10.4 K/mm3 (4.5-11.0) 12/15/20 04:44 RBC 4.38 M/mm3 (3.65-5.03) 12/15/20 04:44 Hgb 12.8 gm/dl (10.1-14.3) 12/15/20 04:44 Hct 38.0 % (30.3-42.9) 12/15/20 04:44 MCV 87 fl (79-97) 12/15/20 04:44 MCH 29 pg (28-32) 12/15/20 04:44 MCHC 34 % (30-34) 12/15/20 04:44 RDW 14.6 % (13.2-15.2) 12/15/20 04:44 Plt Count 391 K/mm3 (140-440) 12/15/20 04:44 Lymph % (Auto) 9.7 % (13.4-35.0) L 12/15/20 04:44 Creek % (Auto) 2.7 % (0.0-7.3) 12/15/20 04:44 Eos % (Auto) 0.0 % (0.0-4.3) 12/15/20 04:44 Baso % (Auto) 0.7 % (0.0-1.8) 12/15/20 04:44 Lymph # (Auto) 1.0 K/mm3 (1.2-5.4) L 12/15/20 04:44 Creek # (Auto) 0.3 K/mm3 (0.0-0.8) 12/15/20 04:44 Eos # (Auto) 0.0 K/mm3 (0.0-0.4) 12/15/20 04:44 Baso # (Auto) 0.1 K/mm3 (0.0-0.1) 12/15/20 04:44 Add Manual Diff Complete 12/11/20 04:00 Total Counted 100 12/11/20 04:00 Seg Neutrophils % 86.9 % (40.0-70.0) H 12/15/20 04:44 Seg Neuts % (Manual) 50.0 % (40.0-70.0) 12/11/20 04:00 Lymphocytes % (Manual) 26.0 % (13.4-35.0) 12/11/20 04:00 Monocytes % (Manual) 10.0 % (0.0-7.3) H 12/11/20 04:00 Eosinophils % (Manual) 13.0 % (0.0-4.3) H 12/11/20 04:00 Basophils % (Manual) 2.0 % (0.0-1.8) H 12/10/20 14:43 Metamyelocytes % 1.0 % 12/11/20 04:00 Nucleated RBC % Not Reportable 12/11/20 04:00 Seg Neutrophils # 9.1 K/mm3 (1.8-7.7) H 12/15/20 04:44 Seg Neutrophils # Man 3.3 K/mm3 (1.8-7.7) 12/11/20 04:00 Band Neutrophils # 0.0 K/mm3 12/11/20 04:00 Lymphocytes # (Manual) 1.7 K/mm3 (1.2-5.4) 12/11/20 04:00 Abs React Lymphs (Man) 0.0 K/mm3 12/11/20 04:00 Monocytes # (Manual) 0.7 K/mm3 (0.0-0.8) 12/11/20 04:00 Eosinophils # (Manual) 0.9 K/mm3 (0.0-0.4) H 12/11/20 04:00 Basophils # (Manual) 0.0 K/mm3 (0.0-0.1) 12/11/20 04:00 Metamyelocytes # 0.1 K/mm3 12/11/20 04:00 Myelocytes # 0.0 K/mm3 12/11/20 04:00 Promyelocytes # 0.0 K/mm3 12/11/20 04:00 Blast Cells # 0.0 K/mm3 12/11/20 04:00 WBC Morphology Not Reportable 12/11/20 04:00 Hypersegmented Neuts Not Reportable 12/11/20 04:00 Hyposegmented Neuts Not Reportable 12/11/20 04:00 Hypogranular Neuts Not Reportable 12/11/20 04:00 Smudge Cells Not Reportable 12/11/20 04:00 Toxic Granulation Not Reportable 12/11/20 04:00 Toxic Vacuolation Not Reportable 12/11/20 04:00 Dohle Bodies Not Reportable 12/11/20 04:00 Pelger-Huet Anomaly Not Reportable 12/11/20 04:00 Emelina Rods Not Reportable 12/11/20 04:00 Platelet Estimate Consistent w auto 12/11/20 04:00 Clumped Platelets Not Reportable 12/11/20 04:00 Plt Clumps, EDTA Not Reportable 12/11/20 04:00 Large Platelets Not Reportable 12/11/20 04:00 Giant Platelets Not Reportable 12/11/20 04:00 Platelet Satelliting Not Reportable 12/11/20 04:00 Plt Morphology Comment Not Reportable 12/11/20 04:00 RBC Morphology Not Reportable 12/11/20 04:00 Dimorphic RBCs Not Reportable 12/11/20 04:00 Polychromasia Not Reportable 12/11/20 04:00 Hypochromasia Not Reportable 12/11/20 04:00 Poikilocytosis Not Reportable 12/11/20 04:00 Anisocytosis Not Reportable 12/11/20 04:00 Microcytosis Not Reportable 12/11/20 04:00 Macrocytosis Not Reportable 12/11/20 04:00 Spherocytes Not Reportable 12/11/20 04:00 Pappenheimer Bodies Not Reportable 12/11/20 04:00 Sickle Cells Not Reportable 12/11/20 04:00 Target Cells Not Reportable 12/11/20 04:00 Tear Drop Cells Rare 12/11/20 04:00 Ovalocytes Rare 12/11/20 04:00 Helmet Cells Not Reportable 12/11/20 04:00 Ponce-[place] Harris Bodies Not Reportable 12/11/20 04:00 Sanders Rings Not Reportable 12/11/20 04:00 [place] Cells Not Reportable 12/11/20 04:00 Bite Cells Not Reportable 12/11/20 04:00 Crenated Cell Not Reportable 12/11/20 04:00 Elliptocytes Not Reportable 12/11/20 04:00 Acanthocytes (Spur) Not Reportable 12/11/20 04:00 Rouleaux Not Reportable 12/11/20 04:00 Hemoglobin C Crystals Not Reportable 12/11/20 04:00 Schistocytes Not Reportable 12/11/20 04:00 Malaria parasites Not Reportable 12/11/20 04:00 Owen Bodies Not Reportable 12/11/20 04:00 Hem Pathologist Commnt No 12/11/20 04:00 PT 14.6 Sec. (12.2-14.9) 12/11/20 01:14 INR 1.16 (0.87-1.13) H 12/11/20 01:14 APTT 100.4 Sec. (24.2-36.6) H* 12/11/20 01:14 Heparin Anti-Xa Level 0.29 U.I./ml (0.3-0.7) L 12/12/20 08:51 Sodium 137 mmol/L (137-145) 12/15/20 04:44 Potassium 4.7 mmol/L (3.6-5.0) D 12/15/20 04:44 Chloride 100.8 mmol/L (98-107) 12/15/20 04:44 Carbon Dioxide 29 mmol/L (22-30) 12/15/20 04:44 Anion Gap 12 mmol/L 12/15/20 04:44 BUN 29 mg/dL (7-17) H 12/15/20 04:44 Creatinine 0.9 mg/dL (0.6-1.2) 12/15/20 04:44 Estimated GFR > 60 ml/min 12/15/20 04:44 BUN/Creatinine Ratio 32 % 12/15/20 04:44 Glucose 157 mg/dL (65-100) H 12/15/20 04:44 POC Glucose 154 mg/dL (70-105) H 12/15/20 06:16 Hemoglobin A1c 5.5 % (4-6) 12/11/20 04:00 Calcium 8.8 mg/dL (8.4-10.2) 12/15/20 04:44 Total Bilirubin 0.20 mg/dL (0.1-1.2) 12/15/20 04:44 AST 36 units/L (5-40) 12/15/20 04:44 ALT 35 units/L (7-56) 12/15/20 04:44 Alkaline Phosphatase 49 units/L (35-129) 12/15/20 04:44 Total Creatine Kinase 475 units/L (30-135) H 12/11/20 10:25 Total Creatine Kinase 487 units/L (30-135) H 12/11/20 10:25 CK-MB (CK-2) 12.5 ng/mL (0.0-4.0) H 12/11/20 10:25 CK-MB (CK-2) 12.5 ng/mL (0.0-4.0) H 12/11/20 10:25 CK-MB (CK-2) Rel Index 2.5 (0-4) 12/11/20 10:25 CK-MB (CK-2) Rel Index 2.6 (0-4) 12/11/20 10:25 Troponin T 1.690 ng/mL (0.00-0.029) H* 12/11/20 10:25 NT-Pro-B Natriuret Pep 60.69 pg/mL (0-900) 12/12/20 12:33 Total Protein 8.5 g/dL (6.3-8.2) H 12/15/20 04:44 Albumin 3.3 g/dL (3.9-5) L 12/15/20 04:44 Albumin/Globulin Ratio 0.6 % 12/15/20 04:44 Triglycerides 130 mg/dL (2-149) 12/10/20 14:43 Cholesterol 142 mg/dL (50-199) 12/10/20 14:43 LDL Cholesterol Direct 82 mg/dL (50-130) 12/10/20 14:43 HDL Cholesterol 40 mg/dL (40-59) 12/10/20 14:43 Cholesterol/HDL Ratio 3.55 % 12/10/20 14:43 TSH 0.070 mlU/mL (0.270-4.200) L 12/11/20 04:00 Free T4 1.28 ng/dL (0.76-1.46) 12/12/20 08:51 Miranda/IV: Voiding Method Toilet Active Medications - Current Medications Current Medications: Generic Name Dose Route Start Last Admin Trade Name Freq PRN Reason Stop Dose Admin Acetaminophen 650 mg 12/10/20 23:52 12/13/20 20:06 Acetaminophen 325 Mg Tab PO 650 mg Q4H PRN Administration Pain MILD(1-3)/Fever >100.5/PENN Amlodipine Besylate 10 mg 12/14/20 10:00 12/15/20 10:18 Amlodipine 10 Mg Tab PO 10 mg DAILY KARLIE Administration Arformoterol Tartrate 15 mcg 12/12/20 12:00 12/14/20 20:27 Arformoterol 15 Mcg/2 Ml Nebu IH 15 mcg Q12HRT KARLIE Administration Azithromycin 250 mg 12/13/20 10:00 12/15/20 10:18 Azithromycin 250 Mg Tab PO 12/17/20 10:01 250 mg QDAY KARLIE Administration Protocol Budesonide 0.5 mg 12/12/20 13:00 12/14/20 20:27 Budesonide 0.5 Mg/2 Ml Nebu IH 0.5 mg Q12HRT KARLIE Administration Enoxaparin Sodium 40 mg 12/13/20 22:00 12/14/20 21:06 Enoxaparin 40 Mg/0.4 Ml Inj SUB-Q 40 mg QDAY@2200 KARLIE Administration Protocol Famotidine 20 mg 12/12/20 22:00 12/15/20 10:18 Famotidine 20 Mg Tab PO 20 mg BID KARLIE Administration Fluoxetine HCl 20 mg 12/11/20 10:00 12/15/20 10:17 Fluoxetine 20 Mg Cap PO 20 mg QDAY KARLIE Administration Gabapentin 600 mg 12/11/20 22:00 12/14/20 21:06 Gabapentin 300 Mg Cap PO 600 mg QHS KARLIE Administration Sodium Chloride 500 mls @ 50 mls/hr 12/15/20 08:00 12/15/20 07:48 Nacl 0.9% 500 Ml IV 50 mls/hr DIRECT KARLIE Administration Sodium Chloride 1,000 mls @ 100 mls/hr 12/15/20 10:15 Nacl 0.9% 1000 Ml IV 12/15/20 15:14 DIRECT KARLIE Meclizine HCl 12.5 mg 12/10/20 23:50 Meclizine 12.5 Mg Tab PO BID PRN Vertigo Methylprednisolone Sodium Succinate 60 mg 12/15/20 22:00 Methylprednisolone Sod Succinate 125 Mg/2 Ml Inj IV Q12H KARLIE Metoclopramide HCl 10 mg 12/10/20 23:52 Metoclopramide 10 Mg/2 Ml Inj IV Q6H PRN Nausea And Vomiting Morphine Sulfate 2 mg 12/10/20 22:53 12/13/20 14:44 Morphine 2 Mg/1 Ml Inj IV 2 mg Q4H PRN Administration Pain, Moderate (4-6) Ondansetron HCl 4 mg 12/10/20 23:52 Ondansetron 4 Mg/2 Ml Inj IV Q8H PRN Nausea And Vomiting Oxycodone/Acetaminophen 1 tab 12/10/20 22:53 12/14/20 09:13 Oxycodone /Acetaminophen 5-325mg Tab PO 1 tab Q6H PRN Administration Pain, Moderate (4-6) Pseudoephedrine/Acetam/Chlorphenir 10 ml 12/10/20 22:53 12/13/20 09:28 Guaifenesin/Codeine 100-10mg Oral Liqd 5 Ml PO 10 ml Q4H PRN Administration Cough Sodium Chloride 10 ml 12/11/20 10:00 12/15/20 10:18 Sodium Chloride 0.9% 10 Ml Flush Syringe IV 10 ml BID KARLIE Administration Sodium Chloride 10 ml 12/10/20 23:52 12/11/20 00:18 Sodium Chloride 0.9% 10 Ml Flush Syringe IV 10 ml PRN PRN Administration LINE FLUSH Tramadol HCl 50 mg 12/15/20 10:06 Tramadol 50 Mg Tab PO Q4H PRN Pain, Mild (1-3)
--- NOTE | 2020-12-15 13:34 | Progress Note ---
Assessment and Plan 60 y/o female admitted with several days to weeks of dyspnea on exertion found to have NSTEMI and Asthma exacerbation. 12/15/20: Change to prednisone 60 daily and taper as follows: 60 daily for 3 days, 40 daily for 3 days 20 daily for 3 days then 10 daily for 3 days then stop. Needs long acting therapy like Symbicort 160 2 puffs BID. Not sure if she can afford this or if her current insurance will cover. Ok with discharge pulmonary maradiaga. 12/14/20: Continue scheduled steroids and scheduled nebs through tomorrow. Should be able to have cardiac procedure tomorrow. Will need long acting asthma therapy at discharge, but will have to discuss with case management to see what patient can afford. 1. Will increase steroids to 60q6 2. Will add BID pulmicort and brovana therapy 3. Will check BNP 4. Keep patient net negative from a fluid balance standpoint. Subjective Date of service: 12/15/20 Principal diagnosis: Shortness of breath, elevated troponin Interval history: Had cath today. Tolerated well. Objective Vital Signs - 12hr 12/15/20 12/15/20 12/15/20 04:08 09:00 10:00 Temperature 98.0 F Pulse Rate 80 86 Pulse Rate [ 89 Apical] Pulse Rate [ 89 Left Radial] Pulse Rate [ 89 Right Radial] Respiratory 20 19 Rate Blood Pressure 146/80 Blood Pressure [Right] O2 Sat by Pulse 93 Oximetry 12/15/20 12/15/20 12/15/20 10:05 10:18 10:30 Temperature Pulse Rate 83 89 79 Pulse Rate [ Apical] Pulse Rate [ Left Radial] Pulse Rate [ Right Radial] Respiratory 19 21 Rate Blood Pressure 158/74 Blood Pressure 154/79 146/60 [Right] O2 Sat by Pulse Oximetry 12/15/20 12/15/20 12/15/20 10:54 11:00 11:03 Temperature Pulse Rate 100 H 86 Pulse Rate [ Apical] Pulse Rate [ Left Radial] Pulse Rate [ Right Radial] Respiratory 19 Rate Blood Pressure 180/102 164/84 Blood Pressure 158/78 [Right] O2 Sat by Pulse 98 Oximetry 12/15/20 12/15/20 11:30 12:00 Temperature Pulse Rate 78 82 Pulse Rate [ Apical] Pulse Rate [ Left Radial] Pulse Rate [ Right Radial] Respiratory 21 19 Rate Blood Pressure Blood Pressure 159/79 155/76 [Right] O2 Sat by Pulse Oximetry Constitutional: no acute distress, alert Eyes: non-icteric Neck: supple Effort: normal Ascultation: Bilateral: diminished breath sounds, wheezes CBC and BMP: 12/15/20 04:44 12/15/20 04:44 ABG, PT/INR, D-dimer: PT/INR, D-dimer PT 14.6 Sec. (12.2-14.9) 12/11/20 01:14 INR 1.16 (0.87-1.13) H 12/11/20 01:14 Abnormal lab findings: Abnormal Labs 12/10/20 12/10/20 12/10/20 14:43 14:43 14:43 Lymph % (Auto) Lymph # (Auto) Seg Neutrophils % Monocytes % (Manual) Eosinophils % (Manual) 16.0 H Basophils % (Manual) 2.0 H Seg Neutrophils # Eosinophils # (Manual) 0.9 H INR APTT 22.0 L Heparin Anti-Xa Level Sodium Potassium BUN Glucose POC Glucose AST 67 H Total Creatine Kinase CK-MB (CK-2) Troponin T 2.230 H* Total Protein 8.6 H Albumin 3.2 L TSH 12/10/20 12/11/20 12/11/20 18:11 01:14 01:14 Lymph % (Auto) Lymph # (Auto) Seg Neutrophils % Monocytes % (Manual) Eosinophils % (Manual) Basophils % (Manual) Seg Neutrophils # Eosinophils # (Manual) INR 1.16 H APTT 100.4 H* Heparin Anti-Xa Level Sodium Potassium BUN Glucose POC Glucose AST Total Creatine Kinase 563 H CK-MB (CK-2) 15.4 H Troponin T 2.050 H* 1.960 H* Total Protein Albumin TSH 12/11/20 12/11/20 12/11/20 04:00 04:00 04:00 Lymph % (Auto) Lymph # (Auto) Seg Neutrophils % Monocytes % (Manual) 10.0 H Eosinophils % (Manual) 13.0 H Basophils % (Manual) Seg Neutrophils # Eosinophils # (Manual) 0.9 H INR APTT Heparin Anti-Xa Level Sodium 136 L Potassium 3.5 L BUN Glucose POC Glucose AST 57 H Total Creatine Kinase CK-MB (CK-2) Troponin T Total Protein Albumin 2.8 L TSH 0.070 L 03/12/11/20 12/11/20 10:25 10:25 10:25 Lymph % (Auto) Lymph # (Auto) Seg Neutrophils % Monocytes % (Manual) Eosinophils % (Manual) Basophils % (Manual) Seg Neutrophils # Eosinophils # (Manual) INR APTT Heparin Anti-Xa Level 1.44 H Sodium Potassium BUN Glucose POC Glucose AST Total Creatine Kinase 487 H 475 H CK-MB (CK-2) 12.5 H 12.5 H Troponin T 1.690 H* Total Protein Albumin [facility] 12/11/20 12/12/20 12/14/20 21:09 08:51 16:44 Lymph % (Auto) Lymph # (Auto) Seg Neutrophils % Monocytes % (Manual) Eosinophils % (Manual) Basophils % (Manual) Seg Neutrophils # Eosinophils # (Manual) INR APTT Heparin Anti-Xa Level 0.74 H 0.29 L Sodium Potassium BUN Glucose POC Glucose 139 H AST Total Creatine Kinase CK-MB (CK-2) Troponin T Total Protein Albumin [facility] 12/14/20 12/15/20 12/15/20 21:09 04:44 04:44 Lymph % (Auto) 9.7 L Lymph # (Auto) 1.0 L Seg Neutrophils % 86.9 H Monocytes % (Manual) Eosinophils % (Manual) Basophils % (Manual) Seg Neutrophils # 9.1 H Eosinophils # (Manual) INR APTT Heparin Anti-Xa Level Sodium Potassium BUN 29 H Glucose 157 H POC Glucose 138 H AST Total Creatine Kinase CK-MB (CK-2) Troponin T Total Protein 8.5 H Albumin 3.3 L [facility] 12/15/20 06:16 Lymph % (Auto) Lymph # (Auto) Seg Neutrophils % Monocytes % (Manual) Eosinophils % (Manual) Basophils % (Manual) Seg Neutrophils # Eosinophils # (Manual) INR APTT Heparin Anti-Xa Level Sodium Potassium BUN Glucose POC Glucose 154 H AST Total Creatine Kinase CK-MB (CK-2) Troponin T Total Protein Albumin [facility]
[2020-12-15] MEDS: guaiFENesin/CODEINE 100-10MG ORAL LIQD 5 ML PO PRN ×2 (16:21→22:28)
[2020-12-15] MEDS: traMADol 50 MG TAB PO PRN ×2 (16:21→22:25)
[2020-12-15] MEDS: GABAPENTIN 300 MG CAP PO SCH (22:25)
[2020-12-15] MEDS: ENOXAPARIN 40 MG/0.4 ML INJ SUB-Q SCH (22:27)
[2020-12-16 05:19] LABS: Hematocrit 33.6 % (30.3-42.9)
[2020-12-16] MEDS: ARFORMOTEROL 15 MCG/2 ML NEBU IH SCH (07:51)
[2020-12-16] MEDS: BUDESONIDE 0.5 MG/2 ML NEBU IH SCH (07:51)
--- NOTE | 2020-12-16 09:10 | Discharge Summary ---
Providers - Providers Date of Admission: 12/12/20 11:08 Date of discharge: 12/16/20 Attending physician: KILO CANALES 12/10/20 15:54 Consult to Physician [CONS] Stat Comment: Consulting Provider: MASOUD ZELAYA Physician Instructions: Reason For Exam: NSTEMI 12/11/20 09:19 Physical Therapy Evaluation and Treat [CONS] Routine Comment: Reason For Exam: debillity Mode of Transport?: Wheelchair 12/11/20 09:20 Occupational Therapy Evaluate and Treat [CONS] Routine Comment: Reason For Exam: debillity 12/12/20 10:46 Consult to Physician [CONS] Routine Comment: Consulting Provider: ALIZA FLOWERS Physician Instructions: Reason For Exam: Asthma exacerbation Primary care physician: PRESCHOOL DIRECTOR Hospitalization Condition: Stable Hospital course: 60-year-old female, history of hypertension, fibromyalgia, hypothyroidism, asthma, presents to ED with difficulty breathing. Patient reports she has been having some shortness of breath for the last 3 weeks. She reports dyspnea on exertion and also orthopnea. She denies any lower extremity swelling. Patient reports pain to bilateral lower extremities secondary to neuropathy and her fibromyalgia. Patient states she had her first appointment with a primary care provider today. Patient states that the office she started having some mild left-sided chest pain and she was advised to come to the emergency room. She denies any chest pain at this time. Patient also reports that her history of asthma. States over the last few weeks she thought that her difficulty breathing may be secondary to her asthma however she states reports no improvement with albuterol. In the ER, patient was noted to have elevated troponin was admitted for further evaluation. Cardiology was consulted. 12/11. Patient seen and examined at bedside this morning. Awaiting cardiology evaluation. Echocardiogram ordered. She has wheezes bilaterally. Her chest xray is clear. She has a history of asthma and usually uses inhalers. Started on Solu-Medrol 40 every 8 this AM. On bronchodilators 12/12. Feels better. Still wheezing. Consulted pulmonology this AM. Per ca rdiology team, she will have stress test on Tuesday. Will make NPO after MN on tuesday. 12/14. Wheezing has improved. On high dose steroids and bronchodilators. Pulmonology following. Cardiology plans to have a cardiac catheter performed tomorrow. 12/15. Patient's cardiac cath is negative for any obstructive disease. Will taper steroids and perform a walk test. Patient will need long-acting maint enance medication 12/16. She is doing well. Had a walk test and her oxygen remained above 96%. She will be discharged on prednisone and symbicort. She will continue aspirin 81 mg daily. Disposition: DC- TO HOME OR SELFCARE Final Discharge Diagnosis (Prints w/discharge instructions): Acute asthma exacerbation Time spent for discharge: 39 mins - Discharge Diagnoses (1) Elevated troponin Status: Acute (2) Hypothyroidism (acquired) Status: Chronic (3) Acute bronchitis Status: Acute Comment: POA (4) Asthma exacerbation Status: Acute (5) Chest pain Status: Acute Comment: Likely from coughing episodes (asthma exacerbation). Non cardiac chest pain Core Measure Documentation - Palliative Care Palliative Care/ Comfort Measures: Not Applicable - Core Measures Any of the following diagnoses?: none Exam - Physical Exam Narrative exam: VITAL SIGNS: Reviewed. GENERAL: Awake HEAD: No signs of head trauma. EYES: Pupils are equal. Extraocular motions intact. MOUTH: Oropharynx is normal. NECK: No adenopathy, no JVD. CHEST: Clear mostly CARDIAC: normal S1 and S2, without murmurs, gallops, or rubs. ABDOMEN: Soft, non tender and non distended. No rebound or guarding, and no masses palpated. Bowel Sounds normal. MUSCULOSKELETAL: No edema NEUROLOGIC EXAM: Alert and oriented x3. No focal neurologic deficits SKIN: No obvious lesions - Constitutional Vitals: Temp Pulse Resp BP Pulse Ox 97.9 F 85 19 129/82 95 12/16/20 07:11 12/16/20 08:00 12/16/20 08:00 12/16/20 07:11 12/16/20 07:11 Plan Diet: low cholesterol, low salt Additional Instructions: Taper prednisone as follows: 60 daily for 3 days,. 40 daily for 3 days,. 20 daily for 3 days then. 10 daily for 3 days then stop. Start symbicort 160 2 puffs BID. Aspirin 81 mg daily. Follow up with PCP in the office in 1-2 weeks Plan of Treatment: Home Health with [facility] [phone] Follow up with: PRIMARY CAREMD [Primary Care Provider] - 3-5 Days Forms: Work/School Release Form Prescriptions: amLODIPine 10 mg PO DAILY #30 tablet predniSONE [Deltasone] 3 tab PO QDAY #20 tab Aspirin EC [Halfprin EC] 81 mg PO QDAY #30 tablet. Budesonide/Formoterol Fumarate [Symbicort 160-4.5 Mcg Inhaler] 10.2 gm IH BID #1 [email or web address]
[2020-12-16] MEDS: amLODIPine 10 MG TAB PO SCH (11:02)
--- NOTE | 2020-12-16 11:02 | Progress Note ---
Assessment and Plan Elevated troponin Cardiac cath: Normal coronaries. Normal LV function, EF >55-60%. Asthma exacerbation Chronic hypertension Hyperthyroidism Conservative cardiac management. Stable cardiac maradiaga. Subjective Date of service: 12/16/20 Principal diagnosis: Shortness of breath, elevated troponin Interval history: Patient appears well. Denies chest pain. Reports shortness of breath is better and less cough. Right radial cath site is intact, no hematoma noted. Objective Vital Signs Temp Pulse Pulse Pulse Pulse Pulse Pulse 12/16/20 10:17 88 12/16/20 09:46 89 12/16/20 08:00 85 85 85 12/16/20 07:51 75 12/16/20 07:11 97.9 F 85 12/16/20 03:47 97.4 F L 79 12/15/20 23:10 12/15/20 23:06 98.2 F 102 H 12/15/20 22:25 12/15/20 22:00 102 H 12/15/20 21:00 89 89 89 12/15/20 20:30 85 12/15/20 19:18 97.6 F 89 12/15/20 18:51 76 12/15/20 15:28 97.3 F L 89 12/15/20 12:00 79 12/15/20 11:30 78 12/15/20 11:03 12/15/20 11:00 86 Resp Resp Resp BP BP Pulse Ox 12/16/20 10:17 136/86 98 12/16/20 09:46 12/16/20 08:00 19 12/16/20 07:51 18 96 12/16/20 07:11 16 129/82 95 12/16/20 03:47 16 140/79 97 12/15/20 23:10 97 12/15/20 23:06 16 155/92 94 12/15/20 22:25 18 12/15/20 22:00 12/15/20 21:00 19 12/15/20 20:30 18 12/15/20 19:18 14 137/79 94 12/15/20 18:51 12/15/20 15:28 18 141/77 93 12/15/20 12:00 19 155/76 12/15/20 11:30 21 159/79 12/15/20 11:03 164/84 12/15/20 11:00 19 158/78 - Physical Examination General: No Apparent Distress HEENT: Positive: PERRL Neck: Positive: trachea midline Cardiac: Positive: Reg Rate and Rhythm Lungs: Positive: Decreased Breath Sounds, Wheezes Neuro: Positive: Grossly Intact Extremities: Absent: edema - Labs and Meds CBC 12/16/20 Range/Units 05:05 Hgb 11.0 (10.1-14.3) gm/dl Hct 33.6 (30.3-42.9) % Plt Count 299 (140-440) K/mm3
[2020-12-16] MEDS: FAMOTIDINE 20 MG TAB PO SCH (11:03)
[2020-12-16 11:04] VITALS: BP 140/94
[2020-12-16] MEDS: AZITHROMYCIN 250 MG TAB PO SCH (11:04)
[2020-12-16] MEDS: methylPREDNISolone Sod Succinate 125 MG/2 ML INJ IV SCH (11:04)
[2020-12-16] MEDS: FLUoxetine 20 MG CAP PO SCH (11:04)
== END 2020-12-16 14:39 | disposition home health service (06) | DRG 203 ==
LOC: ED 14:11 → 4A 16:44 → OBSVTOIN 12-12 11:08
PROVIDERS: ADMIT Internal Medicine; ATTEND Internal Medicine
PROC: 4A023N7 Measurement of Cardiac Sampling and Pressure, Left Heart, Percutaneous Approach (ICD-10-PCS; principal; 2020-12-15)
PROC: B2111ZZ Fluoroscopy of Multiple Coronary Arteries using Low Osmolar Contrast (ICD-10-PCS; 2020-12-15)
PROC: B2151ZZ Fluoroscopy of Left Heart using Low Osmolar Contrast (ICD-10-PCS; 2020-12-15)
DX: J45.901 Unspecified asthma with (acute) exacerbation (principal); J20.9 Acute bronchitis, unspecified; E05.90 Thyrotoxicosis, unspecified without thyrotoxic crisis or storm; M79.7 Fibromyalgia; R77.8 Other specified abnormalities of plasma proteins; G62.9 Polyneuropathy, unspecified; I11.0 Hypertensive heart disease with heart failure; M19.90 Unspecified osteoarthritis, unspecified site; I50.9 Heart failure, unspecified; E89.0 Postprocedural hypothyroidism; Z82.49 Family history of ischemic heart disease and other diseases of the circulatory system; Z79.899 Other long term (current) drug therapy; Z86.718 Personal history of other venous thrombosis and embolism; Z87.442 Personal history of urinary calculi
CPT/HCPCS: 36415; 71046; 80053; 80061; 82550; 82553; 82962; 83036; 83880; 84439; 84443; 84481; 84484; 85007; 85014; 85018; 85025; 85049; 85520; 85610; 85730; 93005; 93306; 93458; 94640; 96365; 96375; G0378; C1894; J1644; J1650; J1940; J2250; J2270; J2930; J3010; J3480; J7030; J7040; Q9967

== ENCOUNTER 2021-11-18 13:01 | Emergency (ER) | payer SELFPAY ==
--- NOTE | 2021-11-18 15:03 | Emergency Department Report ---
ED Back Pain/Injury HPI - General Chief Complaint: Back Pain/Injury Stated Complaint: BACK PAIN Source: patient Limitations: No Limitations - History of Present Illness Initial Comments: 61 y/o female present to ED complaining of low back pain will frequent urination dysuria x1. She states that she has been using Monistat [id number] for vaginal itching. She states she has a history of genital herpes. She is current out of valtex medication. Patient is alert and oriented x3. Patient denies any abdominal pain,vaginal discharge or fever . Patient denies any trauma or any IV drug use, Onset/Timin -: week(s) Similar Symptoms Previously: No Associated Symptoms: denies other symptoms - Related Data Home Medications Medication Instructions Recorded Confirmed Last Taken FLUoxetine [PROzac] 25 mg PO QDAY 12/10/20 12/10/20 Unknown Gabapentin 600 mg PO Q8HR 12/10/20 12/10/20 Unknown Levothyroxine [Synthroid] 125 mcg PO QAM 12/10/20 12/10/20 Unknown Meclizine [Antivert] 12.5 mg PO BID PRN 12/10/20 12/10/20 Unknown Previous Rx's Medication Instructions Recorded Last Taken Type Aspirin EC [Halfprin EC] 81 mg PO QDAY #30 tablet.dr 12/16/20 Unknown Rx Budesonide/Formoterol Fumarate 10.2 gm IH BID #1 hfa.aer.ad 12/16/20 Unknown Rx [Symbicort 160-4.5 Mcg Inhaler] amLODIPine 10 mg PO DAILY #30 tablet 12/16/20 Unknown Rx predniSONE [Deltasone] 3 tab PO QDAY #20 tab 12/16/20 Unknown Rx Fluconazole [Diflucan TAB] 200 mg PO QDAY 1 Days #1 tablet 11/18/21 Unknown Rx Sulfamethoxazole/Trimethoprim 1 each PO BID 7 Days #14 tab 11/18/21 Unknown Rx [Bactrim DS TAB] valACYclovir [Valtrex] 500 mg PO BID 15 Days #30 tab 11/18/21 Unknown Rx Allergies Allergy/AdvReac Type Severity Reaction Status Date / Time lisinopril Allergy Angioedema Verified 12/10/20 14:51 ED Review of Systems ROS: Stated complaint: BACK PAIN Other details as noted in HPI Constitutional: denies: chills, fever Eyes: denies: eye pain, eye discharge, vision change ENT: denies: ear pain, throat pain Respiratory: denies: cough, shortness of breath, wheezing Cardiovascular: denies: chest pain, palpitations Endocrine: no symptoms reported Gastrointestinal: denies: abdominal pain, nausea, diarrhea Genitourinary: urgency, dysuria, frequency. denies: discharge Musculoskeletal: denies: back pain, joint swelling, arthralgia Skin: denies: rash, lesions Neurological: denies: headache, weakness, paresthesias Psychiatric: denies: anxiety, depression Hematological/Lymphatic: denies: easy bleeding, easy bruising ED Past Medical Hx - Past Medical History Hx Hypertension: Yes Hx Congestive Heart Failure: Yes Hx Diabetes: No Hx Deep Vein Thrombosis: Yes (after leg surgery) Hx Arthritis: Yes Hx Kidney Stones: Yes Hx Asthma: Yes Hx COPD: No Hx Tuberculosis: No Hx HIV: No Additional medical history: Fibromylagia, thyroid dz on Synthroid - Surgical History Additional Surgical History: Left knee and bilateral feet. Partial thyroidectomy - Social History Smoking Status: Never Smoker Substance Use Type: None - Medications Home Medications: Home Medications Medication Instructions Recorded Confirmed Last Taken Type FLUoxetine [PROzac] 25 mg PO QDAY 12/10/20 12/10/20 Unknown History Gabapentin 600 mg PO Q8HR 12/10/20 12/10/20 Unknown History Levothyroxine [Synthroid] 125 mcg PO QAM 12/10/20 12/10/20 Unknown History Meclizine [Antivert] 12.5 mg PO BID PRN 12/10/20 12/10/20 Unknown History Aspirin EC [Halfprin EC] 81 mg PO QDAY #30 tablet.dr 12/16/20 Unknown Rx Budesonide/Formoterol Fumarate 10.2 gm IH BID #1 hfa.aer.ad 12/16/20 Unknown Rx [Symbicort 160-4.5 Mcg Inhaler] amLODIPine 10 mg PO DAILY #30 tablet 12/16/20 Unknown Rx predniSONE [Deltasone] 3 tab PO QDAY #20 tab 12/16/20 Unknown Rx Fluconazole [Diflucan TAB] 200 mg PO QDAY 1 Days #1 tablet 11/18/21 Unknown Rx Sulfamethoxazole/Trimethoprim 1 each PO BID 7 Days #14 tab 11/18/21 Unknown Rx [Bactrim DS TAB] valACYclovir [Valtrex] 500 mg PO BID 15 Days #30 tab 11/18/21 Unknown Rx ED Physical Exam - General Limitations: No Limitations General appearance: alert, in no apparent distress - Head Head exam: Present: atraumatic, normocephalic - Eye Eye exam: Present: normal appearance - ENT ENT exam: Present: mucous membranes moist - Neck Neck exam: Present: normal inspection - Respiratory Respiratory exam: Present: normal lung sounds bilaterally. Absent: respiratory distress - Cardiovascular Cardiovascular Exam: Present: regular rate, normal rhythm. Absent: systolic murmur, diastolic murmur, rubs, gallop - GI/Abdominal GI/Abdominal exam: Present: soft, normal bowel sounds - Extremities Exam Extremities exam: Present: normal inspection - Back Exam Back exam: Present: normal inspection - Neurological Exam Neurological exam: Present: alert, oriented X3 - Psychiatric Psychiatric exam: Present: normal affect, normal mood - Skin Skin exam: Present: warm, dry, intact, normal color. Absent: rash ED Course Vital Signs 11/18/21 11/18/21 13:53 16:32 Temperature 98 F Pulse Rate 71 72 Respiratory 16 16 Rate Blood Pressure 154/88 182/89 [Left] O2 Sat by Pulse 98 100 Oximetry ED Medical Decision Making - Lab Data Laboratory Results - last 24 hr 11/18/21 Unknown Urine Color Straw Urine Turbidity Cloudy Urine pH 6.0 Ur Specific [place] 1.015 Urine Protein 100 mg/dl Urine Glucose (UA) Negative Urine Ketones Negative Urine Blood Moderate A Urine Nitrite Negative Ur Reducing Substances Not Reportable Urine Bilirubin Negative Urine Ictotest Not Reportable Urine Urobilinogen < 2.0 Ur Leukocyte Esterase Large Urine WBC (Auto) > 182.0 H Urine RBC (Auto) 25.0 Urine Bacteria (Auto) 1+ Urine WBC Clumps 2+ Urine Mucus Few - Medical Decision Making 61 y/o female present to ED complaining of low back pain will frequent urination dysuria x1. She states that she has been using Monistat [id number] for vaginal itching. She states she has a history of genital herpes. She is current out of valtex medication. Patient is alert and oriented x3. Patient denies any abdominal pain,vaginal discharge or fever . Patient denies any trauma or any IV drug use. Urinalysis is remarkable for a UTI. Rechecked the patient is resting quietly quietly and comfortable and feeling better. I discussed the results of diagnostic study, my clinical impression and the plan for further treatment with the patient. Patient agrees with plan and discharge at this present time. All question addressed. I have given the patient instruction regarding a diagnosis ,expectation ,follow- up and return precaution. I explained to the patient that emergent condition may arise and to return to the ED for new worsen and any new persisting condition. I have explained the importance of following up with the primary care physician or referral physician listed below has instructed. The patient verbalized understanding of discharge instruction. Critical care attestation.: If time is entered above; I have spent that time in minutes in the direct care of this critically ill patient, excluding procedure time. ED Disposition Clinical Impression: Acute urinary tract infection, Medication refill, Candidiasis Disposition: HOME / SELF CARE / HOMELESS Is pt being admited?: No Does the pt Need Aspirin: No Condition: Stable Instructions: Vaginal Yeast Infection, Pediatric, Antibiotic Medicine, Adult, [id number], Urinary Tract Infection, Adult Additional Instructions: Take medication as prescribed Return to ED for any worsening symptoms Prescriptions: Sulfamethoxazole/Trimethoprim [Bactrim DS TAB] 1 each PO BID 7 Days #14 tab Fluconazole [Diflucan TAB] 200 mg PO QDAY 1 Days #1 tablet valACYclovir [Valtrex] 500 mg PO BID 15 Days #30 tab Referrals: PRIMARY CARE, [Primary Care Provider] - 3-5 Days [facility] [Provider Group] - 3-5 Days Forms: Work/School Release Form(ED)
[2021-11-18 16:08] LABS: Bacteria,Urine 1+ /HPF (Negative); Mucus,Urine FEW /HPF
[2021-11-18 16:10] LABS: Color,Urine Straw (Yellow); WBC,Urine > 182.0 /HPF (0.0-6.0)
[2021-11-18 16:12] LABS: Bilirubin,Urine Negative (Negative)
[2021-11-18 16:13] LABS: Blood,Urine Moderate (Negative); Urobilinogen,Urine < 2.0 mg/dL (<2.0)
[2021-11-18 16:36] VITALS: BP 182/89
== END 2021-11-18 16:37 | disposition home or self-care (01) ==
LOC: ED 13:01
DX: N39.0 Urinary tract infection, site not specified (principal); Z76.0 Encounter for issue of repeat prescription; B37.9 Candidiasis, unspecified; J45.909 Unspecified asthma, uncomplicated; Z88.9 Allergy status to unspecified drugs, medicaments and biological substances; I10 Essential (primary) hypertension
CPT/HCPCS: 81001; 99283